=== PATIENT | male | born 1950 | race Caucasian/White ===

== ENCOUNTER 2021-10-02 15:14 | Emergency (ER) | payer MEDICARE ==
[~2021-10-02] VITALS: Ht 180.3 cm; Wt 96.6 kg
[2021-10-02 16:05] LABS: BASOPHILS % (AUTO) 0.5 % (0.0-5.0); EOSINOPHILS % (AUTO) 1.2 % (0.0-8.0); HEMATOCRIT 28.6 % (42-54); LYMPHOCYTES % (AUTO) 9.1 % (21.0-51.0); MEAN CORPUSCULAR HEMOGLOBIN 21.4 pg (27.0-33.0); MEAN CORPUSCULAR HGB CONC 29.7 g/dL (32.0-36.0); MEAN CORPUSCULAR VOLUME 71.9 fL (79-99); MONOCYTES % (AUTO) 8.6 % (3.0-13.0); PLATELET COUNT (AUTO) 580 K/uL (130-400); RED BLOOD CELL COUNT(AUTO) 3.98 MIL/uL (4.50-6.20); RED CELL DISTRIBUTION WIDTH 16.2 % (11.0-15.5)
[2021-10-02 16:17] LABS: INR 0.94 (0.85-1.15); PROTHROMBIN TIME 10.3 SEC (9.6-11.6)
[2021-10-02 16:18] LABS: PARTIAL THROMBOPLASTIN TIME 24.8 SEC (26.3-35.5)
[2021-10-02 16:23] LABS: CREATININE 1.6 mg/dL (0.5-1.5); POTASSIUM 4.5 mmol/L (3.5-5.1)
[2021-10-02 16:28] LABS: ALBUMIN 3.6 g/dL (3.5-5.0); BILIRUBIN,TOTAL 0.2 mg/dL (0.2-1.0); TOTAL PROTEIN, SERUM 6.7 g/dL (6.0-8.3)
[2021-10-02 16:29] LABS: B-TYPE NATRIURETIC PEPTIDE 11 pg/mL (0-100)
[2021-10-02] MEDS ORDERED: ZOSYN 3.375GM +NS 50ML IV SCH (16:30)
[2021-10-02] MEDS ORDERED: 0.9% NACL 500ML IV.SOLN 500 ML IV ONE (17:00)
[2021-10-02] MEDS ORDERED: IOHEXOL-350 75 ML VIAL IV ONE (17:07)
[2021-10-02] MEDS ORDERED: SOLU-MEDROL 125MG VIAL IVP ONE (18:30)
[2021-10-02] MEDS ORDERED: IPRATROPIUM/ALBUTEROL SULFATE 3 ML SOLUTION IH ONE (18:30)
[2021-10-02] MEDS: BUDESONIDE 0.5 MG/2 ML INH IH SCH ×2 (18:59→19:21)
[2021-10-02] MEDS ORDERED: BUDESONIDE 0.5 MG/2 ML INH IH ONE (19:09)
[2021-10-02] MEDS ORDERED: PRED20TA3 PO (23:19)
[2021-10-02] MEDS ORDERED: AMOX-426 PO (23:19)
[2021-10-02 23:32] VITALS: BP 133/64
== END 2021-10-02 23:58 | disposition home or self-care (01) ==
LOC: EDH 15:14
DX: J44.1 Chronic obstructive pulmonary disease with (acute) exacerbation (principal); Z20.822 Contact with and (suspected) exposure to COVID-19
CPT/HCPCS: 36415; 71045; 71270; 80053; 82550; 83605 ×3; 83880; 84145; 84484; 85025; 85378; 85610; 85730; 87040 ×2; 87635; 87804 ×2; 93005; 94640 ×2; 96365; 96375; 99285; C9803; J2543; J2930; Q9967

== ENCOUNTER 2024-05-14 16:09 | Emergency (ER) | payer MEDICARE, OTHER ==
[~2024-05-14] VITALS: Ht 180.3 cm; Wt 93.0 kg
[~2024-05-14 16:09] MED LIST: AMOX-426 PO; PRED20TA3 PO
--- NOTE | 2024-05-14 16:20 | ERN ---
General Chief Complaint: Flu Symptoms Stated Complaint: FLU LIKE SYMPTOMS Time Seen by MD: 16:10 Source: patient History of Present Illness Initial Comments Patient is a 73-year-old male coming in to be evaluated for shortness of breath. Patient also states he has been having body aches and chills. He also states that while laying down he feels more short of breath. Allergies: Coded Allergies: morphine (Unverified Allergy, Mild, 10/02/21) Home Meds Active Scripts Prednisone (Prednisone) 20 Mg Tablet, 3 TAB PO DAILY for 5 Days, #15 TAB 0 Refills TAKE 1 TAB BY MOUTH THREE TIMES PER DAY X3 DAYS, THEN TAKE 1 TAB BY MOUTH TWICE A DAY X2 DAYS, THEN TAKE 1 TAB BY MOUTH ONCE A DAY X1 DAY. Prov:JASMIN GRAYSON MD 10/02/21 Amoxicillin/Potassium Clav (Augmentin 500-125 Tablet) 1 Each Tablet, 1 EACH PO TID for 10 Days, #30 TAB Prov:JASMIN GRAYSON MD 10/02/21 Past Medical History Past Medical History: COPD, High Cholesterol, Hypertension Past Surgical History: Other Surgical History Other: BACK, HERNIA, Social History Social History: Smokers, Lives with family ROS Dictation CONSTITUTIONAL: No chills, no fever, no weakness, no diaphoresis, no malaise. HEAD/FACE: No signs of trauma. EENT: No eye pain, no blurred vision, no tearing, no double vision, no ear pain, no ear discharge, no nose pain, no nasal congestion, no throat pain, no throat swelling, no mouth pain. RESPIRATORY: No cough, orthopnea, SOB, no stridor, no wheezing. CARDIOVASCULAR: No chest pain, no edema, no palpitations, no syncope. GASTROINTESTINAL/ABDOMINAL: No abdominal pain, no constipation, no diarrhea, no nausea, no vomiting. GENITOURINARY: No abnormal discharge, no dysuria, no frequent urination, no hematuria. No complaints of pain in the genitals. MUSCULOSKELETAL: No back pain, no gout, no joint pain, no joint swelling, no muscle pain, no muscle stiffness, no neck pain. INTEGUMENTARY: No change in color, no change in hair/nails, no dryness, no lesion, no lumps, no rash. NEUROLOGICAL/PSYCH: No anxiety, not depressed, no emotional problem, no headache, no numbness, no pre-existing deficit, no history of seizures, no tremors, no weakness. HEMATOLOGIC/LYMPHATIC: Not anemic, no history of blood clots, no apparent bleeding, no bruising, glands not swollen. All Systems Negative, Except as Noted. Physical Exam Physical Exam Dictation VITAL SIGNS: Reviewed. GENERAL APPEARANCE: Alert, oriented x3, no acute distress, obese. HEAD AND FACE: Non-traumatic. EYES: PERRL, pink conjunctivas, eyelid no trauma, anterior chamber clear. EARS: Pinnas intact and no signs of trauma or erythema. Ear canals clear and no discharge. TMs no erythema. NOSE: No discharge, no bleeding. OROPHARYNX: Mouth normal, teeth no caries, tongue pink. Pharynx clear, no erythema. Tonsils no exudates, no abscesses noted. Mucous membrane moist. NECK: Supple, non-tender, no thyromegaly, no masses, no JVD, no bruits. BREAST: Deferred. CHEST: No tenderness, no crepitus, no paradoxical movement, no retractions. LUNGS: Clear, well-ventilated, symmetric, no rales, no wheezing, no rhonchi, no stridor, good breath sounds bilaterally. HEART: Regular rate, regular rhythm, no murmur, no gallops. VASCULAR: No peripheral edema. ABDOMEN: Soft, positive bowel sounds, nondistended, no guarding, nontender, no rebound, no masses no hepatomegaly, no splenomegaly, no Granados's sign, no hernias. RECTAL: Deferred. GENITAL: Deferred. NEUROLOGICAL: Normal speech, gross motor function intact, gross sensory function intact. MUSCULOSKELETAL: Neck nontender, full range of motion, back nontender, full range of motion. EXTREMITIES: Nontender, full range of motion. SKIN: Color pink, dry, no turgor, no rash, no lacerations, no abrasions, no contusions. LYMPHATICS: Deferred. Results Laboratory and Microbiology Lab and Micro Result Laboratory Tests Test 05/14/24 16:20 05/14/24 16:38 Influenza Type A Antigen Negative For Type A Influenza Type B Antigen Negative For Type B SARS-CoV-2, RNA, NAAT NEGATIVE SARS CoV-2 Group A Streptococcus Rapid negative (NEGATIVE) White Blood Count 14.5 K/uL (4.8-10.8) H Red Blood Count 3.97 MIL/uL (4.50-6.20) L Hemoglobin 9.4 g/dL (14.0-18.0) L Hematocrit 30.8 % (42-54) L Mean Corpuscular Volume 77.6 fL (79-99) L Mean Corpuscular Hemoglobin 23.7 pg (27.0-33.0) L Mean Corpuscular Hemoglobin Concent 30.5 g/dL (32.0-36.0) L Red Cell Distribution Width 14.8 % (11.0-15.5) Platelet Count 556 K/uL (130-400) H Mean Platelet Volume 9.4 fL (7.5-10.5) Immature Granulocyte % (Auto) 0.8 % (0-1) Neutrophils (%) (Auto) 80.6 % (40.0-77.0) H Lymphocytes (%) (Auto) 6.9 % (21.0-51.0) L Monocytes (%) (Auto) 8.6 % (3.0-13.0) Eosinophils (%) (Auto) 2.7 % (0.0-8.0) Basophils (%) (Auto) 0.4 % (0.0-5.0) Neutrophils # (Auto) 11.7 K/uL (1.8-7.7) H Lymphocytes # (Auto) 1.0 K/uL (1.0-4.8) Monocytes # (Auto) 1.3 K/uL (0.1-1.0) H Eosinophils # (Auto) 0.39 K/uL (0.00-0.70) Basophils # (Auto) 0.06 K/uL (0.00-0.20) Absolute Immature Granulocyte (auto 0.11 K/uL (0-1) Nucleated Red Blood Cells 0.0 % (0.0-0.19) White Cell Morphology Comment See comments Red Blood Cell Morphology See comments Prothrombin Time 11.0 SEC (9.6-11.6) Prothromb Time International Ratio 0.98 (0.85-1.15) Sodium Level 141 mmol/L (136-145) Potassium Level 3.9 mmol/L (3.5-5.1) Chloride Level 100 mmol/L (101-111) L Carbon Dioxide Level 28 mmol/L (21-32) Blood Urea Nitrogen 21 mg/dL (7-18) H Creatinine 1.2 mg/dL (0.5-1.3) Glomerular Filtration Rate Calc 63 mL/min (>90) Random Glucose 118 mg/dL (70-105) H Total Calcium 9.9 mg/dL (8.5-10.1) Magnesium Level 1.70 mg/dL (1.80-2.40) L Total Creatine Kinase 55 U/L (21-232) # Troponin I High Sensitivity 10 ng/L (4-75) B-Type Natriuretic Peptide 41 pg/mL (0-100) Labs Reviewed?: Yes EKG/XRAY/US/CT/MRI EKG Comment 05/14/2024 time 4:30 p.m. Ventricular rate 101 Sinus tachycardia DC [address] wave elevation or depression X-RAY Comment Chest x-ray-[facility] MDM: Differential diagnosis: Flu, COVID, sinusitis, URI Patient is a 73-year-old male coming in to be evaluated for uri symptoms, lab oratory workup negative for acute findings. Chest x-ray NAD. Patient will be discharged with breathing treatments and antibiotics. ED Course Orders Procedure Category Date Status Time Cbc With Differential LAB 05/14/24 Complete 16:17 Prothrombin Time With LAB 05/14/24 Complete INR 16:17 B-Type Natriuretic LAB 05/14/24 Complete Peptide 16:17 Chest 1vw RAD 05/14/24 Taken 16:17 12 Lead Ekg Tracing- EKG 05/14/24 Complete Technical 16:17 Magnesium LAB 05/14/24 Complete 16:17 Creatine Kinase, Total LAB 05/14/24 Complete 16:17 Troponin I High LAB 05/14/24 Complete Sensitivity 16:17 Basic Metabolic Panel LAB 05/14/24 Complete 16:17 Covid Rna Naat LAB 05/14/24 Complete 16:17 Influenza Type A & B, LAB 05/14/24 Complete Rapid 16:17 Rapid (Group A Strep) LAB 05/14/24 Complete 16:17 Vital Signs Date Time Temp Pulse Resp B/P (MAP) Pulse Ox O2 Delivery O2 Flow Rate FiO2 05/14/24 16:12 98.4 103 18 115/57 98 DX & DISP Disposition: Discharge Departure Impression: Primary Impression: URI (upper respiratory infection) Condition: Stable Scripts Methylprednisolone (Medrol) 8 Mg Tablet 1 TAB PO BID for 5 Days, #10 TAB 0 Refills Prov: JEFRY MARRERO MD 05/14/24 Azithromycin (Azithromycin) 500 Mg Tablet 1 TAB PO DAILY for 5 Days, #5 TAB 0 Refills Prov: JEFRY MARRERO MD 05/14/24 Additional Instructions: FOLLOW-UP WITH PRIMARY CARE PROVIDER IN 1 TO 2 DAYS. TAKE MEDICATIONS DIRECTED HERE IN THE EMERGENCY ROOM. OKAY TO CONTINUE HOME MEDICATIONS UNLESS OTHERWISE DISCUSSED DURING YOUR VISIT IN THE EMERGENCY ROOM TODAY. RETURN TO YOUR NEAREST EMERGENCY ROOM IF SYMPTOMS WORSEN OR IF THERE IS NO IMPROVEMENT. CALL 911 IF YOU NEED IMMEDIATE ASSISTANCE. TAKE TYLENOL [id number] NEEDED AND IF NO CONTRAINDICATIONS ARE PRESENT. INCREASE ORAL HYDRATION. A WOUND CULTURE OR URINE CULTURE WAS ORDERED HERE IN THE EMERGENCY ROOM DEPARTMENT PLEASE FOLLOW-UP WITH PRIMARY CARE PROVIDER AND ADVISE THEM TO GET REPEAT PORTS FROM OUR FACILITY. IF YOU HAD ANY ZAYNAB WRAP/SPLINTS THAT WERE APPLIED HERE, PLEASE DO NOT REMOVE THEM UNTIL YOU SEE YOUR PRIMARY CARE OR SPECIALTY. Referrals: Referrals: NONE (PCP) FRANCESCA MUHAMMAD MD Time of Disposition: 17:32 JEFRY MARRERO MD May 14, 2024 16:20
--- NOTE | 2024-05-14 16:33 | EKG ---
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
[2024-05-14 16:41] LABS: SARS-CoV-2, RNA, NAAT NEGATIVE SARS CoV-2 (NEGATIVE)
[2024-05-14 16:42] LABS: RAPID GROUP A STREP negative (NEGATIVE)
[2024-05-14 16:45] LABS: BASOPHILS # (AUTO) 0.06 K/uL (0.00-0.20); BASOPHILS % (AUTO) 0.4 % (0.0-5.0); EOSINOPHILS # (AUTO) 0.39 K/uL (0.00-0.70); EOSINOPHILS % (AUTO) 2.7 % (0.0-8.0); HEMATOCRIT 30.8 % (42-54); IMMATURE GRANULOCYTE ABSOLUTE 0.11 K/uL (0-1); LYMPHOCYTES % (AUTO) 6.9 % (21.0-51.0); MEAN CORPUSCULAR HEMOGLOBIN 23.7 pg (27.0-33.0); MEAN CORPUSCULAR HGB CONC 30.5 g/dL (32.0-36.0); MEAN CORPUSCULAR VOLUME 77.6 fL (79-99); MONOCYTES # (AUTO) 1.3 K/uL (0.1-1.0); MONOCYTES % (AUTO) 8.6 % (3.0-13.0); NEUTROPHILS # (AUTO) 11.7 K/uL (1.8-7.7); NEUTROPHILS % (AUTO) 80.6 % (40.0-77.0); PLATELET COUNT (AUTO) 556 K/uL (130-400); RED BLOOD CELL COUNT(AUTO) 3.97 MIL/uL (4.50-6.20); RED CELL DISTRIBUTION WIDTH 14.8 % (11.0-15.5); WHITE BLOOD COUNT (AUTO) 14.5 K/uL (4.8-10.8)
[2024-05-14 16:51] LABS: INFLUENZA TYPE A Negative For Type A (NEGATIVE); INFLUENZA TYPE B Negative For Type B (NEGATIVE)
[2024-05-14 16:54] LABS: CREATININE 1.2 mg/dL (0.5-1.3); POTASSIUM 3.9 mmol/L (3.5-5.1)
[2024-05-14 16:55] LABS: INR 0.98 (0.85-1.15)
[2024-05-14 16:59] LABS: MAGNESIUM 1.7 mg/dL (1.80-2.40)
[2024-05-14 17:18] LABS: B-TYPE NATRIURETIC PEPTIDE 41 pg/mL (0-100)
[2024-05-14] MEDS ORDERED: AZIT500T4 PO (17:35)
[2024-05-14] MEDS ORDERED: METH8TAB PO (17:35)
--- NOTE | 2024-05-14 17:39 | HMCIMG ---
INDICATION: sob TECHNIQUE: CHEST 1VW COMPARISON: 10/02/2021 FINDINGS/IMPRESSION: Prominent bilateral interstitial markings which may represent bronchitis or vascular congestion in the proper clinical setting. Cardiac silhouette is within normal limits. Mild degenerative changes of the spine. The visualized upper abdomen appears unremarkable.
[2024-05-14 17:52] VITALS: BP 127/68; PULSE 85; RESP 18; TEMP 98.7; O2SAT 97
[2024-05-14] MEDS ORDERED: IpraTROPium/alBUTERol SULFATE 3 ML SOLUTION IH ONE (18:00)
== END 2024-05-14 18:13 | disposition home or self-care (01) ==
LOC: EDH 16:09
DX: J06.9 Acute upper respiratory infection, unspecified (principal); E78.00 Pure hypercholesterolemia, unspecified; F17.200 Nicotine dependence, unspecified, uncomplicated; I10 Essential (primary) hypertension; J44.9 Chronic obstructive pulmonary disease, unspecified; Z20.822 Contact with and (suspected) exposure to COVID-19; Z79.52 Long term (current) use of systemic steroids; Z88.5 Allergy status to narcotic agent
CPT/HCPCS: 36415; 71045; 80048; 82550; 83735; 83880; 84484; 85025; 85610; 87635; 87804; 87880; 93005; 99285

== ENCOUNTER 2024-06-07 12:08 | Inpatient (IN) | payer OTHER ==
[~2024-06-07] VITALS: Ht 180.3 cm; Wt 99.3 kg
[~2024-06-07 12:08] MED LIST changes: +AZIT500T4 PO; +METH8TAB PO
--- NOTE | 2024-06-07 12:23 | ERN ---
ED Note History of Present Illness Stated Complaint: INFLAMMATION/ RT SHOULDER & GROIN, HEART RATE ELVT Chief Complaint: Dizzy/Light Headed Time Seen by MD: 12:08 Dictation: PATIENT IS A 73-YEAR-OLD MALE COMING IN TODAY WITH COMPLAINTS OF LIGHTHEADEDNESS AND DIZZINESS WORSE FOR THE LAST SEVERAL DAYS. NO HEADACHE NO CHEST PAIN NO BACK PAIN. STATES HIS HEART RATE HAS BEEN RACING TWO. DENIES FEVER CHILLS NAUSEA VOMITING. HAS NOT BEEN TO SEE HIS PRIMARY CARE DOCTOR HAS A HISTORY OF COPD Allergies: Coded Allergies: morphine (Unverified Allergy, Mild, 10/02/21) meperidine (Unverified Allergy, Unknown, 06/07/24) Home Meds Active Scripts Methylprednisolone (Medrol) 8 Mg Tablet, 1 TAB PO BID for 5 Days, #10 TAB 0 Refills Prov:JEFRY MARRERO MD 05/14/24 Azithromycin (Azithromycin) 500 Mg Tablet, 1 TAB PO DAILY for 5 Days, #5 TAB 0 Refills Prov:JEFRY MARRERO MD 05/14/24 Prednisone (Prednisone) 20 Mg Tablet, 3 TAB PO DAILY for 5 Days, #15 TAB 0 Refills TAKE 1 TAB BY MOUTH THREE TIMES PER DAY X3 DAYS, THEN TAKE 1 TAB BY MOUTH TWICE A DAY X2 DAYS, THEN TAKE 1 TAB BY MOUTH ONCE A DAY X1 DAY. Prov:JASMIN GRAYSON MD 10/02/21 Amoxicillin/Potassium Clav (Augmentin 500-125 Tablet) 1 Each Tablet, 1 EACH PO TID for 10 Days, #30 TAB Prov:JASMIN GRAYSON MD 10/02/21 Past Medical History Past Medical History: COPD, High Cholesterol, Hypertension Surgical History: Other Surgical History Other: BACK, HERNIA, Social History: Smokers, Lives with family RN Note Reviewed/Agreed w/PFSH: Yes Review of System Dictation CONSTITUTIONAL: Negative except for HPI HEAD/FACE: Negative except for HPI EENT: Negative except for HPI RESPIRATORY: Negative except for HPI GASTROINTESTINAL/ABDOMINAL: Negative except for HPI melena stools GENITOURINARY: Negative except for HPI MUSCULOSKELETAL: Negative except for HPI INTEGUMENTARY: Negative except for HPI NEUROLOGICAL/PSYCH: Negative except for HPI lightheaded/dizzy HEMATOLOGIC/LYMPHATIC: Negative except for HPI All Systems Negative, Except as noted above. 13 point review of systems assessed and all negative except for above. Initial Vital Sign VS Vital Signs Date Time Temp Pulse Resp B/P (MAP) Pulse Ox O2 Delivery O2 Flow Rate FiO2 06/07/24 12:14 97.9 94 18 148/69 99 Room Air 0 06/07/24 13:52 21 Physical Exam Dictation Vital Signs reviewed Marion RODRIGUEZ in room General Appearance: Alert, oriented x 3, no acute distress, well developed, nourished. Head and Face: non-traumatic. Eyes: PERRL, pink conjunctivas, eyelid no trauma, anterior chamber with arcus senilis. Ears: Pinnas intact and no signs of trauma or erythema ear canals clear and no discharge TM no erythema Nose: No discharge, no bleeding. Oropharynx: Mouth normal, tongue pink, pharynx clear,no erythema, tonsils no exudates, no abscesses noted, mucous membrane moist Neck: Supple, non-tender, no thyromegaly, no masses, no JVD, no bruits Breast:Deferred Chest:No tenderness, no crepitus, no paradoxical movement, no retractions Lungs:Clear, well-ventilated, symmetric, no rales, no wheezing, no rhonchi, no stridor, good breath sounds bilaterally Heart: Regular rate, regular rhythm, no murmur, no gallops Vascular: no peripheral edema, Abdomen: Soft, positive bowel sounds, nondistended, no guarding, nontender, no rebound, no masses no hepatomegaly, no splenomegaly, no Granados's sign, no hernias. Rectal: No external or internal hemorrhoids, tone is normal, stool collected for occult blood. Patient tolerated well Genital: Deferred Neurological: Normal speech, motor function intact, sensory function intact Musculoskeletal: Neck nontender, full range of motion, back nontender, full range of motion, Extremities: nontender, full range of motion Skin: Color pink, dry, no turgor, no rash, no lacerations, no abrasions, no contusions. Lymphatic: Deferred Results (Laboratory/Radiology) Laboratory/Radiology Laboratory Tests Test 06/07/24 12:38 06/07/24 13:46 White Blood Count 9.9 K/uL (4.8-10.8) Red Blood Count 3.09 MIL/uL (4.50-6.20) L Hemoglobin 6.8 g/dL (14.0-18.0) *L Hematocrit 23.3 % (42-54) L Mean Corpuscular Volume 75.4 fL (79-99) L Mean Corpuscular Hemoglobin 22.0 pg (27.0-33.0) L Mean Corpuscular Hemoglobin Concent 29.2 g/dL (32.0-36.0) L Red Cell Distribution Width 15.5 % (11.0-15.5) Platelet Count 419 K/uL (130-400) H Mean Platelet Volume 10.1 fL (7.5-10.5) Immature Granulocyte % (Auto) 1.1 % (0-1) H Neutrophils (%) (Auto) 83.7 % (40.0-77.0) H Lymphocytes (%) (Auto) 5.4 % (21.0-51.0) L Monocytes (%) (Auto) 6.2 % (3.0-13.0) Eosinophils (%) (Auto) 3.1 % (0.0-8.0) Basophils (%) (Auto) 0.5 % (0.0-5.0) Neutrophils # (Auto) 8.2 K/uL (1.8-7.7) H Lymphocytes # (Auto) 0.5 K/uL (1.0-4.8) L Monocytes # (Auto) 0.6 K/uL (0.1-1.0) Eosinophils # (Auto) 0.31 K/uL (0.00-0.70) Basophils # (Auto) 0.05 K/uL (0.00-0.20) Absolute Immature Granulocyte (auto 0.11 K/uL (0-1) Nucleated Red Blood Cells 0.2 % (0.0-0.19) H White Cell Morphology Comment See comments Red Blood Cell Morphology See comments Sodium Level 138 mmol/L (136-145) Potassium Level 4.2 mmol/L (3.5-5.1) Chloride Level 100 mmol/L (101-111) L Carbon Dioxide Level 28 mmol/L (21-32) Blood Urea Nitrogen 23 mg/dL (7-18) H Creatinine 1.2 mg/dL (0.5-1.3) Glomerular Filtration Rate Calc 63 mL/min (>90) Random Glucose 135 mg/dL (70-105) H Total Calcium 10.1 mg/dL (8.5-10.1) Magnesium Level 1.80 mg/dL (1.80-2.40) Troponin I High Sensitivity 532 ng/L (4-75) *H B-Type Natriuretic Peptide 74 pg/mL (0-100) SARS-CoV-2 Antigen (Rapid) PRESUMPTIVE NEGATIVE Labs Reviewed?: Yes EKG Comment: EKG SINUS RHYTHM/HEART RATE 91/AXIS NORMAL/RIGHT BUNDLE BRANCH BLOCK No change from EKG on 05/14/2024 ED Course ED Course Orders Procedure Category Date Status Time Covid19 (Sars Antigen LAB 06/07/24 Complete Rapid) 12:17 Cbc With Differential LAB 06/07/24 Complete 12:17 B-Type Natriuretic LAB 06/07/24 Complete Peptide 12:17 Chest 1vw RAD 06/07/24 Resulted 12:17 12 Lead Ekg Tracing- EKG 06/07/24 Complete Technical 12:17 Magnesium LAB 06/07/24 Complete 12:17 Troponin I High LAB 06/07/24 Complete Sensitivity 12:17 Basic Metabolic Panel LAB 06/07/24 Complete 12:17 Heparin 25,000 PHA 06/07/24 Complete Units/250ml D5w 14:00 Aspirin 325mg Tab PHA 06/07/24 Complete (Aspirin 325mg Tab) 14:00 Pantoprazole 40mg Inj PHA 06/07/24 In Process (Protonix 40mg Inj 14:00 Pantoprazole 40mg Inj PHA 06/07/24 Complete (Protonix 40mg Inj 14:00 Occult Blood Stool LAB 06/07/24 In Process Single Only 13:49 Type And Screen BBK 06/07/24 In Process 13:49 Rbc-Active Bleeding BBK 06/07/24 In Process 13:49 *Nursing CPOE 06/07/24 Transmitted Communication: 13:49 Compound Iv PHA 06/07/24 In Process Refrigerated 14:00 Current Medications Medications (Trade) Dose Ordered Sig/Kenneth Route PRN Reason Start Time Stop Time Status Last Admin Dose Admin Aspirin (Aspirin 325mg Tab) 325 mg ONCE ONCE PO 06/07/24 14:00 06/07/24 14:01 DC 06/07/24 13:49 Heparin Sodium/ Dextrose 250 ml @ 0 mls/hr PROTOCOL IV 06/07/24 14:00 06/07/24 13:52 DC Pantoprazole Sodium (PROTonix 40MG INJ) 40 mg ONCE ONCE IVP 06/07/24 14:00 06/07/24 14:01 DC 06/07/24 14:18 Pantoprazole Sodium 80 mg/ Sodium Chloride 100 ml @ 10 mls/hr Q10H IVP 06/07/24 14:00 07/07/24 13:59 06/07/24 14:17 Vital Signs Date Time Temp Pulse Resp B/P (MAP) Pulse Ox O2 Delivery O2 Flow Rate FiO2 06/07/24 13:52 78 18 152/78 98 Room Air* 0 21 06/07/24 12:14 97.9 94 18 148/69 99 Room Air 0 1455, patient has abnormal EKG with troponin 532. Additionally he has a hemogl obin of 6.8 I discussed the case with ER MD, we will give2 units of packed cells, we will collect stool for occult blood, we will give Protonix and start Protonix drip. 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 He also states I have been having black stools for several days. 428 patient will be admitted to the hospitalp 1430/spoke with . Reviewed EKG labs and he is aware of drop in hemoglobin from his last admission here on 05/14. HEART Score Response (Comments) Value History: Moderate suspicion (+1) 1 Age: > 65yrs (+2) 2 Risk Factors: 3+ risk factors (+2) 2 Initial Troponin: >3x Normal Limit (+2) 2 Total 7 Medical Decision Making MDM MDM: Differential diagnosis: ACS/AMI/GI bleed/anemia/symptomatic anemia/electrolyte imbalance/dehydration/pneumonia/bronchitis Rationale: Tests considered and ordered secondary to shared decision making include: labs, ECG and radiology Previous outside records reviewed: Old ER visits. Risk of complication and/or morbidity or mortality of patient management: [id number] Medications-Per medication reconciliation Need for hospitalization: Patient does meet criteria for hospitalization. Patient will need to be seen by GI for melena stools and cardiac workup for elevated troponin with no changes on EKG Need for emergency major/minor surgery: No There are no social concerns with this patient. Prescription drug management Prescriptions will include symptomatic care Patient's prior external medical records from other ER visits were reviewed by me as indicated. Prior testing and results from previous visits were reviewed. Prior tests were taken into account with medical decision making and resource utilization, independent historian/historians were used to obtain complete medical history. I independently interpreted the test that were performed, results were reviewed by me and considered findings on radiology if ordered. Medical management and examination interpretation discussions were had by me with other qualified healthcare professionals as indicated for the patient's care. DX & DISP Disposition: Inpatient Decision to Admit Time: 14:30 Departure Impression: Primary Impression: Symptomatic anemia Additional Impressions: Hypochloremia, Uncontrolled diabetes mellitus, Elevated troponin level not due to acute coronary syndrome Condition: Stable Referrals: SELF,REFERRAL (PCP) Time of Disposition: 14:30 I have reviewed the case, and I agree with, Diagnosis and Plan DAVE CARPENTER NP Jun 07, 2024 12:23
[2024-06-07 13:13] LABS: CREATININE 1.2 mg/dL (0.5-1.3); MAGNESIUM 1.8 mg/dL (1.80-2.40); POTASSIUM 4.2 mmol/L (3.5-5.1)
--- NOTE | 2024-06-07 13:30 | EKG ---
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
[2024-06-07 13:33] LABS: BASOPHILS # (AUTO) 0.05 K/uL (0.00-0.20); BASOPHILS % (AUTO) 0.5 % (0.0-5.0); EOSINOPHILS # (AUTO) 0.31 K/uL (0.00-0.70); EOSINOPHILS % (AUTO) 3.1 % (0.0-8.0); HEMATOCRIT 23.3 % (42-54); IMMATURE GRANULOCYTE ABSOLUTE 0.11 K/uL (0-1); LYMPHOCYTES # (AUTO) 0.5 K/uL (1.0-4.8); LYMPHOCYTES % (AUTO) 5.4 % (21.0-51.0); MEAN CORPUSCULAR HGB CONC 29.2 g/dL (32.0-36.0); MEAN CORPUSCULAR VOLUME 75.4 fL (79-99); MONOCYTES # (AUTO) 0.6 K/uL (0.1-1.0); MONOCYTES % (AUTO) 6.2 % (3.0-13.0); NEUTROPHILS # (AUTO) 8.2 K/uL (1.8-7.7); NEUTROPHILS % (AUTO) 83.7 % (40.0-77.0); NUCLEATED RED BLOOD CELLS 0.2 % (0.0-0.19); PLATELET COUNT (AUTO) 419 K/uL (130-400); RED BLOOD CELL COUNT(AUTO) 3.09 MIL/uL (4.50-6.20); RED CELL DISTRIBUTION WIDTH 15.5 % (11.0-15.5); WHITE BLOOD COUNT (AUTO) 9.9 K/uL (4.8-10.8)
--- NOTE | 2024-06-07 13:35 | NUR ---
CRITICAL RESULT TROP 532, DAVE EXECUTIVE ADMINISTRATIVE ASST MADE AWARE, CHARGE NURSE MADE AWARE
[2024-06-07] MEDS: ASPIRIN 325MG TAB PO ONE (13:49)
[2024-06-07 13:55] LABS: B-TYPE NATRIURETIC PEPTIDE 74 pg/mL (0-100)
--- NOTE | 2024-06-07 13:58 | HMCIMG ---
Exam Type: CHEST 1VW Clinical Information: CHEST PAIN SOB Comparison: None Findings: The lungs are clear of infiltrates. The heart is normal in size. The bony and soft tissue structures of the chest are unremarkable. Impression: Clear lungs.
[2024-06-07] MEDS ORDERED: COMPOUND IV REFRIGERATED 1 EACH IVSOLN MISC PRN (14:00)
[2024-06-07] MEDS ORDERED: HEParin 25,000 UNITS/250ML D5W 250 ML IV SCH (14:00)
[2024-06-07] MEDS: PANTOPrazole 40MG INJ 80 MG in 0.9%NACL 100ML 100 ML IVP SCH (14:17)
[2024-06-07] MEDS: PANTOPrazole 40 MG/VIAL IVP ONE (14:18)
[2024-06-07] MEDS ORDERED: ALBU2.5V2 NEB (14:51)
[2024-06-07] MEDS ORDERED: ATOR40TA69 PO (14:51)
[2024-06-07] MEDS ORDERED: LISI1TAB51 PO (14:51)
[2024-06-07] MEDS ORDERED: SENN-31 PO (14:51)
[2024-06-07] MEDS ORDERED: POTA99CA PO (14:51)
[2024-06-07] MEDS ORDERED: BUDE0.5A3 NEB (14:51)
[2024-06-07] MEDS ORDERED: PoTASSium chloRIDE 20MEQ/100ML 100 ML IV PRN (15:30)
[2024-06-07] MEDS: 0.9%NACL 1000ML 1,000 ML IV SCH (15:45)
--- NOTE | 2024-06-07 15:45 | HP ---
[facility]ISTORY [facility] PHYSICAL Date of Service: Jun 07, 2024 Time of Service: 15:41 HISTORY OF PRESENT ILLNESS: Date of service: 06/07/2024 This is a 73-year-old male with past medical history of hypertension, hyperlipidemia, COPD who presented to the hospital secondary to episodes of bloody stools at home. Patient states for the past several days he has noted black colored stools. He has a history of constipation and has been using stool softeners at home. He noted that his stool was black colored with last bowel movement yesterday. He denies taking any ibuprofen, Advil at home but does state he takes aspirin occasionally. He currently denies any chest pain, shortness of breath, abdominal pain, nausea, vomiting. Denied any dysuria, fever, chills. He has been feeling lightheaded and feels dizzy with ambulation. Takes lisinopril/HCTZ for hypertension but has been holding his medications since he states his blood pressure has been on the lower side. Denied any falls. Denied any headaches, upper or lower extremity weakness, paresthesias. He denied any hematochezia, hematemesis. Secondary to non improving symptoms patient thereafter came to the hospital for further evaluation. Additionally stated that he has had previous endoscopy and colonoscopy very was noted to have ulcer in the past. Labs in the ED were notable for white count of 9.9, hemoglobin was 6.8, MCV was 75.4, platelet count was 419 K, sodium was 138, potassium was 4.2, creatinine was 1.2, troponin was 532 Chest x-ray was noted to be clear REVIEW OF SYSTEMS CONSTITUTIONAL: Denies fevers, chills, or night sweats. No unintentional weight loss reported. Positive for generalized weakness NEUROLOGICAL: Denies headache, amaurosis fugax, motor weakness, sensory deficit, vertigo/spinning sensation, gait abnormalities, or tremors. ENT: No hearing loss, otalgia, otorrhea, rhinitis, rhinorrhea, hoarseness, or sore throat. CARDIOVASCULAR: Denies any exertional angina, dyspnea on exertion, orthopnea, paroxysmal nocturnal dyspnea, palpitations, life-threatening arrhythmias, claudication. PULMONARY: Denies any shortness of breath, cough, phlegm/sputum, hemoptysis, pleuritic chest pain. GASTROINTESTINAL: Positive for melena, constipation. Denied any hematochezia, hematemesis, abdominal pain, nausea, vomiting GENITOURINARY: Denies frequency, urgency, nocturia, hematuria or incontinence (Storage/Irritative symptoms.) Low urinary stream, straining to void, urinary intermittency or hesitancy, splitting of the voiding stream, terminal dribbling. ENDOCRINOLOGIC: Denies polyuria, polydipsia, polyphagia or heat/cold intolerances. HEMATOLOGIC: Denies thrombophilia/previous clots, or coagulopathy/bleeding disorders. ONCOLOGIC: Denies personal history of malignancy. DERMATOLOGIC: Denies rashes or pruritus. PSYCHIATRIC: Denies any suicidal or homicidal ideation. Denies hallucinations. PAST MEDICAL HISTORY: Hypertension, hyperlipidemia, COPD PAST SURGICAL HISTORY: History of multiple back surgeries, history of colonoscopy, endoscopy PAST SOCIAL HISTORY: Former smoker. Quit more than two years. Denied any drug use. Drinks alcohol very occasionally FAMILY HISTORY: Denied any pertinent family history Coded Allergies: morphine (Unverified Allergy, Mild, 10/02/21) meperidine (Unverified Allergy, Unknown, 06/07/24) PHYSICAL EXAM GENERAL APPEARANCE: The patient is awake, alert, and oriented, in no acute cardiopulmonary distress. Patient appears pain NEUROLOGICAL: Cranial nerves II-XII grossly intact. Motor is 5/5 in bilateral upper and lower extremities proximal to distal. No sensory deficits. HEENT: Face is symmetric. Pupils are equal and reactive. Extraocular movements are intact. NECK: Supple. No JVD. No thyromegaly. No submental, submandibular, pre- /postauricular, occipital or supraclavicular lymphadenopathy. CHEST: Normal chest expansion. No Telemetry. LUNGS: Absence of any rales, rhonchi or any wheezing. CARDIOVASCULAR: Regular. S1 and S2 normal. No appreciable rubs, murmurs or gallops. ABDOMEN: Soft, nontender, and nondistended. There is no rebound, voluntary guarding, or rigidity. : Deferred. No Palomares. EXTREMITIES: Non-edematous and not cyanotic. No clubbing. Good capillary refill. SKIN: No skin breakdown. Vital Sign (Last 24 Hours) 06/07/24 06/07/24 12:14 13:52 Temp 97.9 Pulse 78 Resp 18 B/P (MAP) 152/78 Pulse Ox 98 O2 Delivery Room Air* O2 Flow Rate 0 FiO2 21 LABS: Laboratory: Test 06/07/24 13:58 06/07/24 13:46 06/07/24 12:38 Range/Units Stool Occult Blood POSITIVE H NEGATIVE SARS-CoV-2 Antigen (Rapid) PRESUMPTIVE NEGATIVE NEGATIVE White Blood Count 9.9 4.8-10.8 K/uL Red Blood Count 3.09 L 4.50-6.20 MIL/uL Hemoglobin 6.8 *L 14.0-18.0 g/dL Hematocrit 23.3 L 42-54 % Mean Corpuscular Volume 75.4 L 79-99 fL Mean Corpuscular Hemoglobin 22.0 L 27.0-33.0 pg Mean Corpuscular Hemoglobin Concent 29.2 L 32.0-36.0 g/dL Red Cell Distribution Width 15.5 11.0-15.5 % Platelet Count 419 H 130-400 K/uL Mean Platelet Volume 10.1 7.5-10.5 fL Immature Granulocyte % (Auto) 1.1 H 0-1 % Neutrophils (%) (Auto) 83.7 H 40.0-77.0 % Lymphocytes (%) (Auto) 5.4 L 21.0-51.0 % Monocytes (%) (Auto) 6.2 3.0-13.0 % Eosinophils (%) (Auto) 3.1 0.0-8.0 % Basophils (%) (Auto) 0.5 0.0-5.0 % Neutrophils # (Auto) 8.2 H 1.8-7.7 K/uL Lymphocytes # (Auto) 0.5 L 1.0-4.8 K/uL Monocytes # (Auto) 0.6 0.1-1.0 K/uL Eosinophils # (Auto) 0.31 0.00-0.70 K/uL Basophils # (Auto) 0.05 0.00-0.20 K/uL Absolute Immature Granulocyte (auto 0.11 0-1 K/uL Nucleated Red Blood Cells 0.2 H 0.0-0.19 % White Cell Morphology Comment See comments Red Blood Cell Morphology See comments Sodium Level 138 136-145 mmol/L Potassium Level 4.2 3.5-5.1 mmol/L Chloride Level 100 L 101-111 mmol/L Carbon Dioxide Level 28 21-32 mmol/L Blood Urea Nitrogen 23 H 7-18 mg/dL Creatinine 1.2 0.5-1.3 mg/dL Glomerular Filtration Rate Calc 63 >90 mL/min Random Glucose 135 H 70-105 mg/dL Total Calcium 10.1 8.5-10.1 mg/dL Magnesium Level 1.80 1.80-2.40 mg/dL Troponin I High Sensitivity 532 *H 4-75 ng/L B-Type Natriuretic Peptide 74 0-100 pg/mL Current Medications Medications (Trade) Dose Ordered Sig/Kenneth Route PRN Reason Start Time Stop Time Status Last Admin Dose Admin Heparin Sodium/ Dextrose 250 ml @ 0 mls/hr PROTOCOL IV 06/07/24 14:00 06/07/24 13:52 DC Magnesium Sulfate 50 ml @ 0 mls/hr PROTOCOL PRN IV HYPOMAGNESEMIA 06/07/24 15:30 07/07/24 15:29 Pantoprazole Sodium 80 mg/ Sodium Chloride 100 ml @ 10 mls/hr Q10H IVP 06/07/24 14:00 07/07/24 13:59 06/07/24 14:17 10 MLS/HR Potassium Chloride 100 ml @ 50 mls/hr AD PRN IV POTASSIUM PROTOCOL 06/07/24 15:30 07/07/24 15:29 Sodium Chloride 1,000 ml @ 100 mls/hr Q10H IV 06/07/24 15:30 07/07/24 15:29 DIAGNOSTICS / RADIOLOGY: [ ] ASSESSMENT: Melena with concern for GI bleed POA Acute symptomatic anemia Microcytic anemia Troponin elevation likely in setting of type 2 OK from anemia Hypertension Hyperlipidemia History of COPD History of gastric ulcer History of constipation PLAN: - patient to be admitted to [facility] -in reference to anemia. Patient be given1 unit PRBC transfusion. We will aim for hemoglobin greater than seven. Check H&H q.6 hours. Patient to be started on Protonix drip. We will request GI consultation. obtain CT abdomen pelvis -in reference to troponin elevation. We will check troponins q.6 hours. Patient denies any active chest pain. Obtain an echo. Also request consultation with Cardiology -obtain home medications which will be reconciled once available -we will hold patient's home antihypertensives -further orders per hospitalization course Plan of care was discussed with patient at bedside Marcie Toussaint MD Advanced Care Planning Which of the following were discussed: Hospice care: Yes __ No _X_ Therapeutic options: Yes __ No __ Advance directives: Yes __ No __ Other discussions: Pt is full code Discussed with who?: patient (Patient, family or surrogates) Voluntary nature of this service was explained to the patient? Yes _x_ No __ Amount of time spent: 25 minutes MARCIE Abarca MD, MD Jun 07, 2024 15:45
[2024-06-07] MEDS: ALBUTEROL 0.083% 2.5 MG/3 ML INH IH PRN (16:31)
[2024-06-07 16:32] VITALS: PULSE 87; RESP 18
[2024-06-07 16:33] VITALS: PULSE 87; RESP 18; O2SAT 97
[2024-06-07 16:58] LABS: INR 1.01 (0.85-1.15); PROTHROMBIN TIME 11.3 SEC (9.6-11.6)
[2024-06-07 16:59] LABS: PARTIAL THROMBOPLASTIN TIME 20.3 SEC (26.3-35.5)
--- NOTE | 2024-06-07 17:35 | HMCIMG ---
CT ABDOMEN WITHOUT CONTRAST. CT PELVIS WITHOUT CONTRAST. INDICATION: Anemia and constipation TECHNIQUE: Routine transaxial imaging using 5 mm slice thickness through the abdomen and pelvis without the administration of IV contrast. Thin slice reconstructions are also provided. Coronal and sagittal reformatted images acquired for interpretation. CT was performed with one or more of the following dose reduction techniques: Automated exposure control, adjustment of the mA and/or kV according to patient size, or use of iterative reconstruction technique. COMPARISON: None FINDINGS: ON NONCONTRAST IMAGING: ABDOMEN: Heart size is normal. Mild to moderate centrilobular emphysema. No abnormal renal calcifications, hydronephrosis, perinephric inflammation, or proximal hydroureter detected. Small simple bilateral renal cysts. The liver is normal in size and smooth in contour without biliary duct dilation. Large low attenuating masses within the right and left hepatic lobe and smaller low attenuating lesions scattered throughout the liver, largest mass within the left hepatic lobe measures up to 9 cm. Subcentimeter proteinaceous or hemorrhagic cyst at the midportion of the left kidney. A couple of slightly enlarged esperanza hepatis lymph nodes. The spleen is normal in size and attenuation. The gallbladder appears normal. The pancreas appears normal without pancreatic duct dilation. A couple of low attenuating left adrenal gland nodules, likely tiny adenomas. Right adrenal gland appears normal. No other significant abdominal, retrocrural or retroperitoneal adenopathy noted. No evidence for intra-abdominal free air or organized fluid collection. Mild calcific plaque is noted along the abdominal aortic and iliac vessel roberson without aneurysmal dilation. PELVIS: No abnormal calcifications within the urinary bladder or distal ureters. No evidence for free air or organized pelvic fluid collection. No significant pelvic adenopathy detected. Visualized small and large bowel loops appear unremarkable. Terminal ileum appears unremarkable. The appendix appears normal. Moderate thoracolumbar spondylosis. Mild lumbar dextroscoliosis. IMPRESSION: 1. Metastatic liver disease or primary liver neoplasm with associated metastatic disease. 2. Mild to moderate centrilobular emphysema. 3. Additional minor findings and pertinent negatives as reported.
--- NOTE | 2024-06-07 18:23 | HMCIMG ---
ULTRASOUND ABDOMEN LIMITED INDICATION: Liver mass COMPARISON: To 425 CT abdomen pelvis FINDINGS: The liver is normal in size and echogenicity; hypoechoic/heterogeneous 10.1 cm left hepatic lobe mass and a 0.9 cm and 3.8 cm right hepatic lobe masses. Main portal vein is patent, and normal direction of vascular flow demonstrated. The common bile duct diameter measures 4.0 mm. No evidence for calculi, sludge or pericholecystic fluid. No sonographic Granados's sign elicited by the ultrasound cafe operator. Wall thickness measures 2.0 mm. Visible portions of the pancreas appear normal. The right kidney measures 10.0 x 4.7 x 4.8 cm,and is normal in echogenicity, without evidence for hydronephrosis.No shadowing stones demonstrated. 2.9 cm simple cyst at the lower pole and 1.8 cm simple cyst at the upper pole. No free fluid demonstrated. IMPRESSION: Liver masses suggesting metastatic disease until proven otherwise. Please refer to the corresponding CT study for further details.
--- NOTE | 2024-06-07 18:37 | NUR ---
DR. COOK AT BEDSIDE. STATES HE SPOKE TO [facility]. STATES HE SAW RESULTS OF CT. IS AT BEDSIDE, COMMUNICATING RESULTS WITH PT AT THIS TIME
[2024-06-07] MEDS: BUDESONIDE 0.5 MG/2 ML INH IH SCH (19:02)
[2024-06-07 19:05] VITALS: PULSE 96; RESP 18
[2024-06-07 19:06] VITALS: PULSE 96; RESP 18; O2SAT 99
[2024-06-07 19:14] LABS: HEMATOCRIT 20.2 % (42-54)
--- NOTE | 2024-06-07 19:23 | CONS ---
GASTROENTEROLOGY CONSULTATION NOTE Date of Consultation: Jun 07, 2024 Time of Consultation: 19:23 History of Present Illness: This is a 73-year-old male who is known to services with past medical history of hypertension, hyperlipidemia, COPD presented due to melena. He reports constipation history for which he uses stool softeners. He takes occasional aspirin. Hemoglobin 6.8 with a platelet count of 119 and MCV of 75.4. Troponin elevated measuring 532. He had a positive FOBT. Last EGD September 2023 revealing small hiatal hernia and mild diffuse gastritis. Colonoscopy December 2021 was normal. Review of Systems: CONSTITUTIONAL: No malaise or change in sensation of wellbeing. ENMT: No rhinorrhea, otorrhea, sinus pain, ear ache. CARDIOVASCULAR: No angina, palpitations, orthopnea or paroxysmal dyspnea. RESPIRATORY: No SOB. GASTROINTESTINAL: No abdominal pain, nausea, vomiting, diarrhea, hematemesis, melena or change in the patient's habitual bowel movements consistency/number. GENITOURINARY: No dysuria, hematuria or change in bladder continence. MUSCULOSKELETAL: No new muscle pain or decrease in muscular strength. No new joint swelling, redness or tenderness. SKIN: No new rash. Past Medical History: PAST MEDICAL HISTORY: Hypertension, hyperlipidemia, COPD PAST SURGICAL HISTORY: History of multiple back surgeries, history of colonoscopy, endoscopy PAST SOCIAL HISTORY: Former smoker. Quit more than two years. Denied any drug use. Drinks alcohol very occasionally FAMILY HISTORY: Denied any pertinent family history Coded Allergies: morphine (Unverified Allergy, Mild, 10/02/21) meperidine (Unverified Allergy, Unknown, 06/07/24) Coded Allergies: morphine (Unverified Allergy, Mild, 10/02/21) meperidine (Unverified Allergy, Unknown, 06/07/24) Physical Exam: GEN: Awake, alert, oriented in person, time and place, and in no acute distress. HEENT: No sinus tenderness. Tympanic membranes were not examined. No rhinorrhea. Oral pharyngeal mucosa is pink, moist and within normal limits. Neck is supple with no cervical lymphadenopathy, thyromegaly or JVD. CHEST: Inspection, palpation and percussion of the chest were unremarkable. Lung auscultation revealed normal breath sounds bilaterally. CARDIAC: PMI is within normal limits. Heart sounds are regular. Normal S1, S2. No gallop or murmur. ABD: Soft, non-tender and not distended. No peritoneal signs on palpation. No organomegaly. Normal bowel sounds. EXT: No cyanosis or clubbing. No edema. SKIN: Intact. No rashes. JOINTS: No evidence of synovitis or acute arthritis. NEURO: Alert and oriented to name, place and person. Cranial nerve examination is unremarkable. No focal motor deficits. Normal speech. Gait is normal. Strength is normal. Vital Sign (Last 24 Hours) 06/07/24 06/07/24 18:00 19:06 Temp 97.7 Pulse 96 Resp 18 B/P (MAP) 152/46 Pulse Ox 99 O2 Delivery N/A Room Air O2 Flow Rate 0 FiO2 21 Laboratory: [ ] Laboratory: Test 06/07/24 18:29 06/07/24 16:21 06/07/24 13:58 06/07/24 13:46 Range/Units Hemoglobin 6.0 *L 14.0-18.0 g/dL Hematocrit 20.2 *L 42-54 % Troponin I High Sensitivity 450 *H 4-75 ng/L Prothrombin Time 11.3 9.6-11.6 SEC Prothromb Time International Ratio 1.01 0.85-1.15 Activated Partial Thromboplast Time 20.3 L 26.3-35.5 SEC Stool Occult Blood POSITIVE H NEGATIVE SARS-CoV-2 Antigen (Rapid) PRESUMPTIVE NEGATIVE NEGATIVE Test 06/07/24 12:38 Range/Units White Blood Count 9.9 4.8-10.8 K/uL Red Blood Count 3.09 L 4.50-6.20 MIL/uL Mean Corpuscular Volume 75.4 L 79-99 fL Mean Corpuscular Hemoglobin 22.0 L 27.0-33.0 pg Mean Corpuscular Hemoglobin Concent 29.2 L 32.0-36.0 g/dL Red Cell Distribution Width 15.5 11.0-15.5 % Platelet Count 419 H 130-400 K/uL Mean Platelet Volume 10.1 7.5-10.5 fL Immature Granulocyte % (Auto) 1.1 H 0-1 % Neutrophils (%) (Auto) 83.7 H 40.0-77.0 % Lymphocytes (%) (Auto) 5.4 L 21.0-51.0 % Monocytes (%) (Auto) 6.2 3.0-13.0 % Eosinophils (%) (Auto) 3.1 0.0-8.0 % Basophils (%) (Auto) 0.5 0.0-5.0 % Neutrophils # (Auto) 8.2 H 1.8-7.7 K/uL Lymphocytes # (Auto) 0.5 L 1.0-4.8 K/uL Monocytes # (Auto) 0.6 0.1-1.0 K/uL Eosinophils # (Auto) 0.31 0.00-0.70 K/uL Basophils # (Auto) 0.05 0.00-0.20 K/uL Absolute Immature Granulocyte (auto 0.11 0-1 K/uL Nucleated Red Blood Cells 0.2 H 0.0-0.19 % White Cell Morphology Comment See comments Red Blood Cell Morphology See comments Sodium Level 138 136-145 mmol/L Potassium Level 4.2 3.5-5.1 mmol/L Chloride Level 100 L 101-111 mmol/L Carbon Dioxide Level 28 21-32 mmol/L Blood Urea Nitrogen 23 H 7-18 mg/dL Creatinine 1.2 0.5-1.3 mg/dL Glomerular Filtration Rate Calc 63 >90 mL/min Random Glucose 135 H 70-105 mg/dL Total Calcium 10.1 8.5-10.1 mg/dL Magnesium Level 1.80 1.80-2.40 mg/dL B-Type Natriuretic Peptide 74 0-100 pg/mL Current Medications Medications (Trade) Dose Ordered Sig/Kenneth Route PRN Reason Start Time Stop Time Status Last Admin Dose Admin Albuterol Sulfate (Proventil 0.083% 2.5mg/3ml) 2.5MG Q6H PRN IH SHORTNESS OF BREATH 06/07/24 16:00 07/07/24 15:59 06/07/24 16:31 2.5 MG Atorvastatin Calcium (LIPItor 40MG) 40 mg HS PO 06/07/24 21:00 07/07/24 20:59 Budesonide (Pulmicort 0.5 Mg/2ml) 0.5 mg BIDRESP IH 06/07/24 18:00 07/07/24 17:59 06/07/24 19:02 0.5 MG Heparin Sodium/ Dextrose 250 ml @ 0 mls/hr PROTOCOL IV 06/07/24 14:00 06/07/24 13:52 DC Lisinopril (Prinivil 20mg) 20 mg DAILY PO 06/08/24 09:00 07/08/24 08:59 Magnesium Sulfate 50 ml @ 0 mls/hr PROTOCOL PRN IV HYPOMAGNESEMIA 06/07/24 15:30 07/07/24 15:29 Pantoprazole Sodium 80 mg/ Sodium Chloride 100 ml @ 10 mls/hr Q10H IVP 06/07/24 14:00 07/07/24 13:59 06/07/24 14:17 10 MLS/HR Potassium Chloride 100 ml @ 50 mls/hr AD PRN IV POTASSIUM PROTOCOL 06/07/24 15:30 07/07/24 15:29 Sodium Chloride 1,000 ml @ 100 mls/hr Q10H IV 06/07/24 15:30 07/07/24 15:29 06/07/24 15:45 100 MLS/HR Diagnostics / Radiology: [COPY/PASTE HERE IF NO REPORTS PLEASE DELETE SECTION] Assessment: Melena DWAIN Elevated troponin HTN COPD Plan: 1. NPO 2. EGD in AM. I have discussed the risks, benefits, alternatives, and potential complications. Questions were answered and they agree to proceed. 3. Pantoprazole drip 80 mg IV bolus and then 8 mg/hr IV infusion for 72 hours 4. Octreotide 50 mcg IV bolus and then 50 mcg/hr IV infusion for 72 hours 5. Recommend checking Hg every 6 hours and transfuse to goal Hg >7. Please do not overtransfuse 6. Please contact our service if the patient has significant bleeding such as hematemesis and we can proceed sooner with the EGD Thanks you for allowing us to participate in the care of this patient! NAKUL FALCON [employer]ER Jun 07, 2024 19:23
[2024-06-07] MEDS: atorVAStatin 40 MG TABLET PO SCH (20:55)
[2024-06-08 01:52] LABS: HEMATOCRIT 23.4 % (42-54)
[2024-06-08 07:00] VITALS: PULSE 88; RESP 18
[2024-06-08 07:01] VITALS: PULSE 88; RESP 18; O2SAT 96
[2024-06-08] MEDS: LISINOPRIL 20 MG TABLET PO SCH (08:18)
[2024-06-08 08:19] LABS: HEMATOCRIT 20.9 % (42-54)
[2024-06-08] MEDS: PANTOPrazole 40 MG/VIAL ONE (08:20)
[2024-06-08] MEDS: MAGNESIUM 2GM PREMIX 50ML 50 ML IV PRN (09:13)
--- NOTE | 2024-06-08 09:51 | NUR ---
DR. BROWN PAGED FOR CARDIOLOGY CONSULT, AWAITING CALL BACK
--- NOTE | 2024-06-08 10:13 | NUR ---
CARDIOLOGY [facility] VISITING PT NOW
[2024-06-08] MEDS: acetaMINOPHEN 325 MG TAB PO ONE (10:26)
--- NOTE | 2024-06-08 10:29 | NUR ---
SPOKE TO [employer] H[employer]ORY TE[employer] DR. SMITH, STATES HE WILL LOOK INTO AND WILL CALL BACK
--- NOTE | 2024-06-08 10:40 | NUR ---
DR. SMITH STATES PT CARDIAC CLEARANCE MAY PROCEED FOR EGD
--- NOTE | 2024-06-08 12:01 | PN ---
GASTROENTEROLOGY PROGRESS NOTE Date of Visit: Jun 08, 2024 Time of Visit: 12:01 Events / Notes: No acute events overnight. Procedure canceled pending cardiac clearance. Denies fever, chills, abdominal pain, N/V, hematemesis, bloating, constipation, diarrhea, melena or hematochezia. Review of Systems: CONSTITUTIONAL: No malaise or change in sensation of wellbeing. ENMT: No rhinorrhea, otorrhea, sinus pain, ear ache. CARDIOVASCULAR: No angina, palpitations, orthopnea or paroxysmal dyspnea. RESPIRATORY: No SOB. GASTROINTESTINAL: No abdominal pain, nausea, vomiting, diarrhea, hematemesis, melena or change in the patient's habitual bowel movements consistency/number. GENITOURINARY: No dysuria, hematuria or change in bladder continence. MUSCULOSKELETAL: No new muscle pain or decrease in muscular strength. No new joint swelling, redness or tenderness. SKIN: No new rash. Physical Exam: GEN: Awake, alert, oriented in person, time and place, and in no acute distress. HEENT: No sinus tenderness. Tympanic membranes were not examined. No rhinorrhea. Oral pharyngeal mucosa is pink, moist and within normal limits. Neck is supple with no cervical lymphadenopathy, thyromegaly or JVD. CHEST: Inspection, palpation and percussion of the chest were unremarkable. Lung auscultation revealed normal breath sounds bilaterally. CARDIAC: PMI is within normal limits. Heart sounds are regular. Normal S1, S2. No gallop or murmur. ABD: Soft, non-tender and not distended. No peritoneal signs on palpation. No organomegaly. Normal bowel sounds. EXT: No cyanosis or clubbing. No edema. SKIN: Intact. No rashes. JOINTS: No evidence of synovitis or acute arthritis. NEURO: Alert and oriented to name, place and person. Cranial nerve examination is unremarkable. No focal motor deficits. Normal speech. Gait is normal. Strength is normal. Vital Signs (last 8hr) Date Time Temp Pulse Resp B/P (MAP) Pulse Ox O2 Delivery O2 Flow Rate FiO2 06/08/24 07:57 98.2 98 18 124/46 98 Room Air* 0 21 06/08/24 07:01 88 18 N/A Room Air 21 06/08/24 07:00 88 18 06/08/24 05:15 98.2 86 16 139/49 96 Room Air* 0 21 06/08/24 04:15 98.2 89 17 150/57 96 Room Air* 0 21 Laboratory: [ ] Laboratory: Test 06/08/24 07:00 06/08/24 01:19 06/07/24 16:21 06/07/24 13:58 Range/Units Hemoglobin 6.3 *L 14.0-18.0 g/dL Hematocrit 20.9 *L 42-54 % Troponin I High Sensitivity 404 *H 4-75 ng/L Prothrombin Time 11.3 9.6-11.6 SEC Prothromb Time International Ratio 1.01 0.85-1.15 Activated Partial Thromboplast Time 20.3 L 26.3-35.5 SEC Stool Occult Blood POSITIVE H NEGATIVE Test 06/07/24 13:46 06/07/24 12:38 Range/Units SARS-CoV-2 Antigen (Rapid) PRESUMPTIVE NEGATIVE NEGATIVE White Blood Count 9.9 4.8-10.8 K/uL Red Blood Count 3.09 L 4.50-6.20 MIL/uL Mean Corpuscular Volume 75.4 L 79-99 fL Mean Corpuscular Hemoglobin 22.0 L 27.0-33.0 pg Mean Corpuscular Hemoglobin Concent 29.2 L 32.0-36.0 g/dL Red Cell Distribution Width 15.5 11.0-15.5 % Platelet Count 419 H 130-400 K/uL Mean Platelet Volume 10.1 7.5-10.5 fL Immature Granulocyte % (Auto) 1.1 H 0-1 % Neutrophils (%) (Auto) 83.7 H 40.0-77.0 % Lymphocytes (%) (Auto) 5.4 L 21.0-51.0 % Monocytes (%) (Auto) 6.2 3.0-13.0 % Eosinophils (%) (Auto) 3.1 0.0-8.0 % Basophils (%) (Auto) 0.5 0.0-5.0 % Neutrophils # (Auto) 8.2 H 1.8-7.7 K/uL Lymphocytes # (Auto) 0.5 L 1.0-4.8 K/uL Monocytes # (Auto) 0.6 0.1-1.0 K/uL Eosinophils # (Auto) 0.31 0.00-0.70 K/uL Basophils # (Auto) 0.05 0.00-0.20 K/uL Absolute Immature Granulocyte (auto 0.11 0-1 K/uL Nucleated Red Blood Cells 0.2 H 0.0-0.19 % White Cell Morphology Comment See comments Red Blood Cell Morphology See comments Sodium Level 138 136-145 mmol/L Potassium Level 4.2 3.5-5.1 mmol/L Chloride Level 100 L 101-111 mmol/L Carbon Dioxide Level 28 21-32 mmol/L Blood Urea Nitrogen 23 H 7-18 mg/dL Creatinine 1.2 0.5-1.3 mg/dL Glomerular Filtration Rate Calc 63 >90 mL/min Random Glucose 135 H 70-105 mg/dL Total Calcium 10.1 8.5-10.1 mg/dL Magnesium Level 1.80 1.80-2.40 mg/dL B-Type Natriuretic Peptide 74 0-100 pg/mL Current Medications Medications (Trade) Dose Ordered Sig/Kenneth Route PRN Reason Start Time Stop Time Status Last Admin Dose Admin Albuterol Sulfate (Proventil 0.083% 2.5mg/3ml) 2.5MG Q6H PRN IH SHORTNESS OF BREATH 06/07/24 16:00 07/07/24 15:59 06/08/24 06:59 2.5 MG Atorvastatin Calcium (LIPItor 40MG) 40 mg HS PO 06/07/24 21:00 07/07/24 20:59 06/07/24 20:55 40 MG Budesonide (Pulmicort 0.5 Mg/2ml) 0.5 mg BIDRESP IH 06/07/24 18:00 07/07/24 17:59 06/08/24 06:59 0.5 MG Heparin Sodium/ Dextrose 250 ml @ 0 mls/hr PROTOCOL IV 06/07/24 14:00 06/07/24 13:52 DC Lisinopril (Prinivil 20mg) 20 mg DAILY PO 06/08/24 09:00 07/08/24 08:59 06/08/24 08:18 20 MG Magnesium Sulfate 50 ml @ 0 mls/hr PROTOCOL PRN IV HYPOMAGNESEMIA 06/07/24 15:30 07/07/24 15:29 06/08/24 09:13 25 MLS/HR Pantoprazole Sodium 80 mg/ Sodium Chloride 100 ml @ 10 mls/hr Q10H IVP 06/07/24 14:00 07/07/24 13:59 06/08/24 08:17 10 MLS/HR Potassium Chloride 100 ml @ 50 mls/hr AD PRN IV POTASSIUM PROTOCOL 06/07/24 15:30 07/07/24 15:29 Sodium Chloride 1,000 ml @ 100 mls/hr Q10H IV 06/07/24 15:30 07/07/24 15:29 06/07/24 15:45 100 MLS/HR Diagnostics / Radiology: [COPY/PASTE HERE IF NO REPORTS PLEASE DELETE SECTION] Assessment: Hiatal hernia Gastritis Hemorrhoids Diverticulosis DWAIN Elevated troponin HTN COPD Plan: Continue GI prophylaxis Advance diet as tolerated Avoid NSAIDs Antireflux measures Monitor H&H and transfuse as needed Call with questions, concerns or change in clinical status Patient to follow-up at clinic post discharge Thank you for this consult NAKUL FALCON Jun 08, 2024 12:01
[2024-06-08 14:33] LABS: HEMATOCRIT 25.8 % (42-54)
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
--- NOTE | 2024-06-08 18:13 | HMCSR ---
APPROVED REPORT EXAM: Two-dimensional and M-mode echocardiogram with Doppler and color Doppler. INDICATION ICD: TROPONIN ELEVATION 2D Dimensions RVDd3.8 cmLVEF(%)81.4 (>50%)LVED Vol(simp.)111.0 mL IVSd1.3 (0.7-1.1cm)FS(%)50 %LVES Vol(simp.)45.0 mL LVDd4.6 (3.8-5.6cm)LA (2D)4.2 (1.6-4.0cm)LVEF(%, simp.)60 % PWd1.3 (0.7-1.1cm)Ao Root(2D)4.0 (2.0-3.7cm)LA ESV INDEX (4CH)20.20 mL/m2 IVSs1.6 cmLVOT diam2.5 (1.8-2.4cm)LA ESV INDEX (2CH)27.70 mL/m2 LVDs2.3 (2.5-4.0cm)LA ESV INDEX (BP)24.00 mL/m2 PWs1.9 cm M-Mode Dimensions EPSS0.4 cm LA (MM)3.7 (1.6-4.0cm) Ao Root(MM)3.7 (2.0-3.7cm) Aortic Valve AoV VTI0.3 mAo Mean GR4.0 mmHgLVOT VTI0.23 m MICHELLE (VMAX)3.6 cm2Al P1/2T324 msAVA (VTI) 3.6 cm2 Mitral Valve MV E Vmax99.4 cm/sDECEL Fmka288 ms MV A Vmax82.0 cm/sP 1/2 T48 ms E/A ratio1.2MVA (PHT)4.6 cm2 TDI E/E' Wlczdd12.8E/E' Lateral9.0 Medial E' Peak V7.20 cm/sLateral E' Peak V11.00 cm/s Tricuspid Valve TR Vmax2.7 m/s TR Peak GR29.8 mmHg Left Ventricle Left ventricular cavity size is normal. Normal wall motion Mild concentric left ventricular hypertrop hy. LVEF is 60-65%. The left ventricular diastolic function is normal. Right Ventricle Right ventricle is within normal limits. The right ventricular systolic function is normal. Atria The left atrium size is normal. The right atrium size is normal. Aortic Valve The aortic valve is mildly thickened but opens well. Mild aortic regurgitation. There is no aortic va lvular stenosis. Mitral Valve Mitral valve leaflets open well. There is no mitral valve regurgitation noted. Cannot exclude mitral valve vegetation on anterior leaflet versus redundant valve/chordae versus mass There is no mitral va lve stenosis. Tricuspid Valve The tricuspid valve is normal in structure and function. There is mild tricuspid valve regurgitation noted. Pulmonic Valve The pulmonary valve is normal in structure and function. There is no pulmonic valvular regurgitation. Great Vessels The aortic root is normal in size. The IVC is normal in size and collapses >50% with inspiration. Pericardium No pericardial effusion. Conclusion LVEF is 60-65%. The left ventricular diastolic function is normal. Normal wall motion Normal diastolic function Normal LV size Mild aortic regurgitation. There is mild tricuspid valve regurgitation noted. Normal pulmonary pressures No pericardial effusion. Cannot exclude mitral valve vegetation on anterior leaflet versus redundant valve/chordae versus mass Consider JONATHAN
[2024-06-08 18:26] LABS: HEMATOCRIT 24.6 % (42-54)
[2024-06-08 18:55] VITALS: PULSE 82; RESP 18; O2SAT 98
--- NOTE | 2024-06-08 19:28 | PN ---
[facility] PROGRESS NOTE Date of Service: Jun 08, 2024 Time of Service: 19:21 SUBJECTIVE: 2/5 patient seen at bedside, no acute events overnight. CT of the abdomen/pelvis showed hypodensities in the liver consistent with metastatic liver disease. We will order CEA, CA 19-9, AFP and consult Oncology for further recommendations. GI consulted and recommending EGD, we will follow up postpr ocedure. Patient transfused 1 unit packed red blood cells, hemoglobin currently stable. Troponins mildly elevated however they have plateaued and are downtrending likely a sign of stress consistent with NSTEMI. Remainder of his labs are relatively unremarkable. REVIEW OF SYSTEMS 12 point review of systems negative unless noted in HPI PHYSICAL EXAM GENERAL APPEARANCE: The patient is awake, alert, and oriented, in no acute cardiopulmonary distress. Patient appears pain NEUROLOGICAL: Cranial nerves II-XII grossly intact. Motor is 5/5 in bilateral upper and lower extremities proximal to distal. No sensory deficits. HEENT: Face is symmetric. Pupils are equal and reactive. Extraocular movements are intact. NECK: Supple. No JVD. No thyromegaly. No submental, submandibular, pre- /postauricular, occipital or supraclavicular lymphadenopathy. CHEST: Normal chest expansion. No Telemetry. LUNGS: Absence of any rales, rhonchi or any wheezing. CARDIOVASCULAR: Regular. S1 and S2 normal. No appreciable rubs, murmurs or gallops. ABDOMEN: Soft, nontender, and nondistended. There is no rebound, voluntary guarding, or rigidity. : Deferred. No Palomares. EXTREMITIES: Non-edematous and not cyanotic. No clubbing. Good capillary refill. SKIN: No skin breakdown. Vital Signs (last 8hr) Date Time Temp Pulse Resp B/P (MAP) Pulse Ox O2 Delivery O2 Flow Rate FiO2 06/08/24 18:55 82 18 06/08/24 18:55 82 18 N/A Room Air 21 06/08/24 16:06 80 18 143/69 98 Room Air* 0 21 06/08/24 12:43 98.4 86 18 144/55 98 Room Air* 0 21 LABS: Laboratory: Test 06/08/24 18:15 06/08/24 01:19 06/07/24 16:21 06/07/24 13:58 Range/Units Hemoglobin 7.7 L 14.0-18.0 g/dL Hematocrit 24.6 L 42-54 % Troponin I High Sensitivity 404 *H 4-75 ng/L Prothrombin Time 11.3 9.6-11.6 SEC Prothromb Time International Ratio 1.01 0.85-1.15 Activated Partial Thromboplast Time 20.3 L 26.3-35.5 SEC Stool Occult Blood POSITIVE H NEGATIVE Test 06/07/24 13:46 06/07/24 12:38 Range/Units SARS-CoV-2 Antigen (Rapid) PRESUMPTIVE NEGATIVE NEGATIVE White Blood Count 9.9 4.8-10.8 K/uL Red Blood Count 3.09 L 4.50-6.20 MIL/uL Mean Corpuscular Volume 75.4 L 79-99 fL Mean Corpuscular Hemoglobin 22.0 L 27.0-33.0 pg Mean Corpuscular Hemoglobin Concent 29.2 L 32.0-36.0 g/dL Red Cell Distribution Width 15.5 11.0-15.5 % Platelet Count 419 H 130-400 K/uL Mean Platelet Volume 10.1 7.5-10.5 fL Immature Granulocyte % (Auto) 1.1 H 0-1 % Neutrophils (%) (Auto) 83.7 H 40.0-77.0 % Lymphocytes (%) (Auto) 5.4 L 21.0-51.0 % Monocytes (%) (Auto) 6.2 3.0-13.0 % Eosinophils (%) (Auto) 3.1 0.0-8.0 % Basophils (%) (Auto) 0.5 0.0-5.0 % Neutrophils # (Auto) 8.2 H 1.8-7.7 K/uL Lymphocytes # (Auto) 0.5 L 1.0-4.8 K/uL Monocytes # (Auto) 0.6 0.1-1.0 K/uL Eosinophils # (Auto) 0.31 0.00-0.70 K/uL Basophils # (Auto) 0.05 0.00-0.20 K/uL Absolute Immature Granulocyte (auto 0.11 0-1 K/uL Nucleated Red Blood Cells 0.2 H 0.0-0.19 % White Cell Morphology Comment See comments Red Blood Cell Morphology See comments Sodium Level 138 136-145 mmol/L Potassium Level 4.2 3.5-5.1 mmol/L Chloride Level 100 L 101-111 mmol/L Carbon Dioxide Level 28 21-32 mmol/L Blood Urea Nitrogen 23 H 7-18 mg/dL Creatinine 1.2 0.5-1.3 mg/dL Glomerular Filtration Rate Calc 63 >90 mL/min Random Glucose 135 H 70-105 mg/dL Total Calcium 10.1 8.5-10.1 mg/dL Magnesium Level 1.80 1.80-2.40 mg/dL B-Type Natriuretic Peptide 74 0-100 pg/mL Current Medications Medications (Trade) Dose Ordered Sig/Kenneth Route PRN Reason Start Time Stop Time Status Last Admin Dose Admin Albuterol Sulfate (Proventil 0.083% 2.5mg/3ml) 2.5MG Q6H PRN IH SHORTNESS OF BREATH 06/07/24 16:00 07/07/24 15:59 06/08/24 18:55 2.5 MG Atorvastatin Calcium (LIPItor 40MG) 40 mg HS PO 06/07/24 21:00 07/07/24 20:59 06/07/24 20:55 40 MG Budesonide (Pulmicort 0.5 Mg/2ml) 0.5 mg BIDRESP IH 06/07/24 18:00 07/07/24 17:59 06/08/24 18:55 0.5 MG Heparin Sodium/ Dextrose 250 ml @ 0 mls/hr PROTOCOL IV 06/07/24 14:00 06/07/24 13:52 DC Lisinopril (Prinivil 20mg) 20 mg DAILY PO 06/08/24 09:00 07/08/24 08:59 06/08/24 08:18 20 MG Magnesium Sulfate 50 ml @ 0 mls/hr PROTOCOL PRN IV HYPOMAGNESEMIA 06/07/24 15:30 07/07/24 15:29 06/08/24 09:13 25 MLS/HR Pantoprazole Sodium 80 mg/ Sodium Chloride 100 ml @ 10 mls/hr Q10H IVP 06/07/24 14:00 07/07/24 13:59 06/08/24 08:17 10 MLS/HR Potassium Chloride 100 ml @ 50 mls/hr AD PRN IV POTASSIUM PROTOCOL 06/07/24 15:30 07/07/24 15:29 Sodium Chloride 1,000 ml @ 100 mls/hr Q10H IV 06/07/24 15:30 07/07/24 15:29 06/08/24 13:42 100 MLS/HR DIAGNOSTICS / RADIOLOGY: [ ] ASSESSMENT: Hypodensities in the liver consistent with metastatic disease Melena with concern for GI bleed POA Acute symptomatic anemia Microcytic anemia Troponin elevation likely in setting of type 2 IN from anemia Hypertension Hyperlipidemia History of COPD History of gastric ulcer History of constipation PLAN: - patient to be admitted to [facility] - trend H&H, transfuse if less than seven - GI consulted, recommending EGD - CEA, AFP, CA 19-9 ordered, we will follow up - oncology consulted, appreciate recommendations - echo showing normal ejection fraction however mitral valve vegetation on anterior leaflet has not ruled out, if patient has bacteremia would recommend JONATHAN - cardiology consulted, appreciate recommendations Disposition: Pending Cardiology recommendations, EGD, GI recommendations, Oncology recommendations DEBBIE HAMILTON MD Jun 08, 2024 19:28
[2024-06-08 21:01] LABS: HEMATOCRIT 27.5 % (42-54)
[2024-06-08 23:23] VITALS: PULSE 92; RESP 20; O2SAT 97
[2024-06-09] VITALS (12 sets, daily range): BP systolic 141–150; BP diastolic 54–66; PULSE 69–98; RESP 16–20; TEMP 97.7–98; O2SAT 96–97
[2024-06-09 06:10] LABS: BASOPHILS # (AUTO) 0.03 K/uL (0.00-0.20); BASOPHILS % (AUTO) 0.3 % (0.0-5.0); EOSINOPHILS # (AUTO) 0.24 K/uL (0.00-0.70); EOSINOPHILS % (AUTO) 2.6 % (0.0-8.0); HEMATOCRIT 26.1 % (42-54); IMMATURE GRANULOCYTE ABSOLUTE 0.06 K/uL (0-1); LYMPHOCYTES # (AUTO) 0.6 K/uL (1.0-4.8); LYMPHOCYTES % (AUTO) 6.8 % (21.0-51.0); MEAN CORPUSCULAR HEMOGLOBIN 22.9 pg (27.0-33.0); MEAN CORPUSCULAR HGB CONC 30.3 g/dL (32.0-36.0); MEAN CORPUSCULAR VOLUME 75.7 fL (79-99); MONOCYTES # (AUTO) 0.8 K/uL (0.1-1.0); MONOCYTES % (AUTO) 8.9 % (3.0-13.0); NEUTROPHILS # (AUTO) 7.4 K/uL (1.8-7.7); NEUTROPHILS % (AUTO) 80.7 % (40.0-77.0); NUCLEATED RED BLOOD CELLS 0.2 % (0.0-0.19); PLATELET COUNT (AUTO) 354 K/uL (130-400); RED BLOOD CELL COUNT(AUTO) 3.45 MIL/uL (4.50-6.20); RED CELL DISTRIBUTION WIDTH 16.4 % (11.0-15.5); WHITE BLOOD COUNT (AUTO) 9.2 K/uL (4.8-10.8)
[2024-06-09 06:21] LABS: ALBUMIN 2.6 g/dL (3.5-5.0); BILIRUBIN,TOTAL 0.6 mg/dL (0.2-1.0); PHOSPHORUS 3.6 mg/dL (2.5-4.9); POTASSIUM 4.2 mmol/L (3.5-5.1); TOTAL PROTEIN, SERUM 5.8 g/dL (6.0-8.3)
[2024-06-09] MEDS ORDERED: hydrALAZine 20MG/ML VIAL IV PRN (10:30)
--- NOTE | 2024-06-09 13:00 | PN ---
[facility] PROGRESS NOTE Date of Service: Jun 09, 2024 Time of Service: 12:57 SUBJECTIVE: 06/08 patient seen at bedside, no acute events overnight. CT of the abdomen/pelvis showed hypodensities in the liver consistent with metastatic liver disease. We will order CEA, CA 19-9, AFP and consult Oncology for further recommendations. GI consulted and recommending EGD, we will follow up postpr ocedure. Patient transfused 1 unit packed red blood cells, hemoglobin currently stable. Troponins mildly elevated however they have plateaued and are downtrending likely a sign of stress consistent with NSTEMI. Remainder of his labs are relatively unremarkable. 06/09 patient is seen and examined at bedside, no acute events overnight, during my visit the patient is comfortable, alert oriented x3, following commands, he is currently NPO, awaiting EGD. BP 160 6-68, afebrile, saturating normal on room air. Hemoglobin today seven nine, hematocrit 26, platelet count 354. AFB 4.0, carcinoembryonic antigen 612. CA 19-9 pending. Echocardiogram with LVEF 60 65%. We will do CBC q.8 hours with transfusion of 1 unit of PRBC if hemoglobin less than 7. Oncology consultation requested, we will follow input and recommendation. REVIEW OF SYSTEMS 12 point review of systems negative unless noted in HPI PHYSICAL EXAM GENERAL APPEARANCE: The patient is awake, alert, and oriented, in no acute cardiopulmonary distress. Patient appears pain NEUROLOGICAL: Cranial nerves II-XII grossly intact. Motor is 5/5 in bilateral upper and lower extremities proximal to distal. No sensory deficits. HEENT: Face is symmetric. Pupils are equal and reactive. Extraocular movements are intact. NECK: Supple. No JVD. No thyromegaly. No submental, submandibular, pre-/post auricular, occipital or supraclavicular lymphadenopathy. CHEST: Normal chest expansion. No Telemetry. LUNGS: Absence of any rales, rhonchi or any wheezing. CARDIOVASCULAR: Regular. S1 and S2 normal. No appreciable rubs, murmurs or gallops. ABDOMEN: Soft, nontender, and nondistended. There is no rebound, voluntary guarding, or rigidity. : Deferred. No Palomares. EXTREMITIES: Non-edematous and not cyanotic. No clubbing. Good capillary refill. SKIN: No skin breakdown. Vital Signs (last 8hr) Date Time Temp Pulse Resp B/P (MAP) Pulse Ox O2 Delivery O2 Flow Rate FiO2 06/09/24 11:30 83 16 166/68 98 Room Air* 0 21 06/09/24 07:30 82 20 152/52 96 Room Air* 0 21 06/09/24 06:14 85 18 06/09/24 06:14 85 20 N/A Room Air 21 06/09/24 06:06 97.9 88 18 152/53 97 Room Air* 0 21 LABS: Laboratory: Test 06/09/24 10:45 06/09/24 06:00 06/09/24 05:56 06/08/24 07:00 Range/Units Iron Level 9 L 65-175 mcg/dL Total Iron Binding Capacity 300 250-450 mcg/dL Percent Iron Saturation 3.0 L 30-44 % Sodium Level 140 136-145 mmol/L Potassium Level 4.2 3.5-5.1 mmol/L Chloride Level 105 101-111 mmol/L Carbon Dioxide Level 26 21-32 mmol/L Blood Urea Nitrogen 18 7-18 mg/dL Creatinine 1.0 0.5-1.3 mg/dL Glomerular Filtration Rate Calc 79 >90 mL/min Random Glucose 121 H 70-105 mg/dL Total Calcium 9.2 8.5-10.1 mg/dL Phosphorus Level 3.6 2.5-4.9 mg/dL Magnesium Level 2.00 1.80-2.40 mg/dL Total Bilirubin 0.6 0.2-1.0 mg/dL Aspartate Amino Transf (AST/SGOT) 52 H 10-37 U/L Alanine Aminotransferase (ALT/SGPT) 35 12-78 U/L Alkaline Phosphatase 229 H 50-136 U/L Total Protein 5.8 L 6.0-8.3 g/dL Albumin 2.6 L 3.5-5.0 g/dL White Blood Count 9.2 4.8-10.8 K/uL Red Blood Count 3.45 L 4.50-6.20 MIL/uL Hemoglobin 7.9 L 14.0-18.0 g/dL Hematocrit 26.1 L 42-54 % Mean Corpuscular Volume 75.7 L 79-99 fL Mean Corpuscular Hemoglobin 22.9 L 27.0-33.0 pg Mean Corpuscular Hemoglobin Concent 30.3 L 32.0-36.0 g/dL Red Cell Distribution Width 16.4 H 11.0-15.5 % Platelet Count 354 130-400 K/uL Mean Platelet Volume 9.9 7.5-10.5 fL Immature Granulocyte % (Auto) 0.7 0-1 % Neutrophils (%) (Auto) 80.7 H 40.0-77.0 % Lymphocytes (%) (Auto) 6.8 L 21.0-51.0 % Monocytes (%) (Auto) 8.9 3.0-13.0 % Eosinophils (%) (Auto) 2.6 0.0-8.0 % Basophils (%) (Auto) 0.3 0.0-5.0 % Neutrophils # (Auto) 7.4 1.8-7.7 K/uL Lymphocytes # (Auto) 0.6 L 1.0-4.8 K/uL Monocytes # (Auto) 0.8 0.1-1.0 K/uL Eosinophils # (Auto) 0.24 0.00-0.70 K/uL Basophils # (Auto) 0.03 0.00-0.20 K/uL Absolute Immature Granulocyte (auto 0.06 0-1 K/uL Nucleated Red Blood Cells 0.2 H 0.0-0.19 % Tumor Marker Alpha Fetoprotein 3.9 0.0-8.4 ng/mL Carcinoembryonic Antigen 612.0 H 0.0-4.7 ng/mL Test 06/08/24 01:19 06/07/24 16:21 06/07/24 13:58 06/07/24 13:46 Range/Units Troponin I High Sensitivity 404 *H 4-75 ng/L Prothrombin Time 11.3 9.6-11.6 SEC Prothromb Time International Ratio 1.01 0.85-1.15 Activated Partial Thromboplast Time 20.3 L 26.3-35.5 SEC Stool Occult Blood POSITIVE H NEGATIVE SARS-CoV-2 Antigen (Rapid) PRESUMPTIVE NEGATIVE NEGATIVE Current Medications Medications (Trade) Dose Ordered Sig/Kenneth Route PRN Reason Start Time Stop Time Status Last Admin Dose Admin Albuterol Sulfate (Proventil 0.083% 2.5mg/3ml) 2.5MG Q6H PRN IH SHORTNESS OF BREATH 06/07/24 16:00 07/07/24 15:59 2/5/25 23:23 2.5 MG Atorvastatin Calcium (LIPItor 40MG) 40 mg HS PO 06/07/24 21:00 07/07/24 20:59 06/08/24 21:18 40 MG Budesonide (Pulmicort 0.5 Mg/2ml) 0.5 mg BIDRESP IH 06/07/24 18:00 07/07/24 17:59 06/09/24 06:13 0.5 MG Heparin Sodium/ Dextrose 250 ml @ 0 mls/hr PROTOCOL IV 06/07/24 14:00 06/07/24 13:52 DC Hydralazine HCl (APRESOLine 20MG INJ) 5 mg Q6H PRN IV ADMINISTER FOR SBP > 160 06/09/24 10:30 07/09/24 10:29 Lisinopril (Prinivil 20mg) 20 mg DAILY PO 06/08/24 09:00 07/08/24 08:59 06/08/24 08:18 20 MG Magnesium Sulfate 50 ml @ 0 mls/hr PROTOCOL PRN IV HYPOMAGNESEMIA 06/07/24 15:30 07/07/24 15:29 06/08/24 09:13 25 MLS/HR Pantoprazole Sodium 80 mg/ Sodium Chloride 100 ml @ 10 mls/hr Q10H IVP 06/07/24 14:00 07/07/24 13:59 06/09/24 05:40 10 MLS/HR Potassium Chloride 100 ml @ 50 mls/hr AD PRN IV POTASSIUM PROTOCOL 06/07/24 15:30 07/07/24 15:29 Sodium Chloride 1,000 ml @ 100 mls/hr Q10H IV 06/07/24 15:30 07/07/24 15:29 06/08/24 22:38 100 MLS/HR DIAGNOSTICS / RADIOLOGY: [ ] ASSESSMENT: Hypodensities in the liver consistent with metastatic disease Melena with concern for GI bleed POA Acute symptomatic anemia Microcytic anemia Troponin elevation likely in setting of type 2 PR from anemia Hypertension Hyperlipidemia History of COPD History of gastric ulcer History of constipation PLAN: - patient to be admitted to PCCU - trend H&H, transfuse if less than seven - GI consulted, recommending EGD today - tumor markers reviewed, patient with the elevated CEA, CA 19-9 pending. - oncology consulted, appreciate recommendations - echo showing normal ejection fraction however mitral valve vegetation on anterior leaflet has not ruled out, if patient has bacteremia would recommend JONATHAN - cardiology consulted, appreciate recommendations Disposition: Pending improvement in clinical condition. Plan of action discussed, all questions answered, agreed and understood the information provided. Total time spent 30 minutes. GRICELDA CABRERA MD Jun 09, 2024 13:00
[2024-06-09] MEDS ORDERED: proPOFol 10 MG/ML 20ML VIAL IV ONE (13:46)
[2024-06-09] MEDS ORDERED: LIDOCAINE PF 100MG/5ML (2%) SYRINGE 5ML ONE (13:47)
[2024-06-09] MEDS ORDERED: phenylEPHRINE HCL 10 MG/ML 1ML VIAL IV ONE (13:47)
--- NOTE | 2024-06-09 15:05 | NUR ---
PT RETURNED FROM EGD PROCEDURE.
[2024-06-09 15:47] LABS: HEMATOCRIT 27.3 % (42-54); MEAN CORPUSCULAR HEMOGLOBIN 23.5 pg (27.0-33.0); MEAN CORPUSCULAR HGB CONC 30.8 g/dL (32.0-36.0); MEAN CORPUSCULAR VOLUME 76.5 fL (79-99); NUCLEATED RED BLOOD CELLS 0.2 % (0.0-0.19); RED BLOOD CELL COUNT(AUTO) 3.57 MIL/uL (4.50-6.20); RED CELL DISTRIBUTION WIDTH 16.7 % (11.0-15.5); WHITE BLOOD COUNT (AUTO) 9.6 K/uL (4.8-10.8)
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
[2024-06-09] MEDS: PEG 3350/NA SULF,BICARB,CL/KCL 4000 ML SOLN PO ONE (18:39)
--- NOTE | 2024-06-09 21:20 | NUR ---
ADMIT PT ADMITTED TO ROOM 402, AAOX4. CLAIMS OF PAINS TO HIS RT ARM AND RT LEG. PT USED BEDSIDE COMMODE BUT HAS DIFFICULTY PUTTING PRESSURE ON HIS RT LEG DUE TO PAIN. STOOL IS CLEAR LIGHT YELLOW IN COLOR. ADMISSION CARE DONE. ADMISSION V/S MONITORED, STABLE. ADMISSION ASSESSMENT DONE, PLEASE REFER TO CHART. CONTINUED IVF OF NS AND PROTONIX DRIP FROM ER. PLACED PT COMFORTABLY IN BED. PLACED DIAPER ON PT AT THIS TIME DUE TO INCONTINENCE. PLACED ON CLEAR LIQUIDS FOR NOW AND INSTRUCTED TO BE NPO POST MN FOR COLONOSCOPY IN AM. ADMISSION DATA BASE COMPLETED. ORIENTED TO ROOM AND UNIT. IN FOR MORE CARE AND MANAGEMENT. Addendum: 06/09/24 at 2345 by WERNER FALCON RN RN Amended: Links added.
--- NOTE | 2024-06-09 21:22 | NUR ---
REPORT GIVEN TO WERNER RODRIGUEZ
--- NOTE | 2024-06-09 22:40 | NUR ---
CLOTH COVERER CLOTH COVERER DORI PEREZ MAKING ROUNDS IN THE FLOOR. REFERRED PT'S PAIN. NEW MED ORDER RECEIVED, PLEASE REFER TO CPOE. WILL MEDICATE PT.
[2024-06-09] MEDS: acetaMINOPHEN 325 MG TAB PO PRN (22:55)
[2024-06-10] VITALS (27 sets, daily range): BP systolic 115–180; BP diastolic 41–75; PULSE 70–99; RESP 15–20; TEMP 97.5–98.2; O2SAT 90–98
[2024-06-10 03:52] LABS: BASOPHILS # (AUTO) 0.03 K/uL (0.00-0.20); BASOPHILS % (AUTO) 0.4 % (0.0-5.0); EOSINOPHILS # (AUTO) 0.31 K/uL (0.00-0.70); EOSINOPHILS % (AUTO) 4.3 % (0.0-8.0); HEMATOCRIT 23.4 % (42-54); IMMATURE GRANULOCYTE ABSOLUTE 0.03 K/uL (0-1); LYMPHOCYTES # (AUTO) 0.7 K/uL (1.0-4.8); LYMPHOCYTES % (AUTO) 9.4 % (21.0-51.0); MEAN CORPUSCULAR HEMOGLOBIN 23.1 pg (27.0-33.0); MEAN CORPUSCULAR HGB CONC 30.3 g/dL (32.0-36.0); MONOCYTES # (AUTO) 0.8 K/uL (0.1-1.0); MONOCYTES % (AUTO) 11.1 % (3.0-13.0); NEUTROPHILS # (AUTO) 5.3 K/uL (1.8-7.7); NEUTROPHILS % (AUTO) 74.4 % (40.0-77.0); PLATELET COUNT (AUTO) 304 K/uL (130-400); RED BLOOD CELL COUNT(AUTO) 3.08 MIL/uL (4.50-6.20); RED CELL DISTRIBUTION WIDTH 16.8 % (11.0-15.5); WHITE BLOOD COUNT (AUTO) 7.1 K/uL (4.8-10.8)
[2024-06-10 04:17] LABS: ALBUMIN 2.3 g/dL (3.5-5.0); BILIRUBIN,TOTAL 0.6 mg/dL (0.2-1.0); MAGNESIUM 1.7 mg/dL (1.80-2.40); POTASSIUM 3.8 mmol/L (3.5-5.1); TOTAL PROTEIN, SERUM 5.3 g/dL (6.0-8.3)
--- NOTE | 2024-06-10 06:26 | NUR ---
GI LAB GI STAFF IN TO PICK PT UP. PT SALINE LOCKED. WHEELED DOWN TO GI LAB FOR PROCEDURE.
--- NOTE | 2024-06-10 07:24 | NUR ---
RECEIVED REPORT FROM NURSE; PATIENT IN GI LAB
[2024-06-10] MEDS ORDERED: proPOFol 10 MG/ML 20ML VIAL IV ONE (07:33)
--- NOTE | 2024-06-10 08:25 | NUR ---
RETURN TI UNIT. IN NO DISTRESS. LATE BREAKFAST TRAY ORDERED
[2024-06-10 08:58] LABS: HEMATOCRIT 26.8 % (42-54); MEAN CORPUSCULAR HEMOGLOBIN 23.4 pg (27.0-33.0); MEAN CORPUSCULAR HGB CONC 30.2 g/dL (32.0-36.0); MEAN CORPUSCULAR VOLUME 77.5 fL (79-99); RED BLOOD CELL COUNT(AUTO) 3.46 MIL/uL (4.50-6.20); RED CELL DISTRIBUTION WIDTH 16.7 % (11.0-15.5); WHITE BLOOD COUNT (AUTO) 7.8 K/uL (4.8-10.8)
[2024-06-10] MEDS ORDERED: MAGNESIUM 2GM PREMIX 50ML 50 ML IV SCH (09:00)
--- NOTE | 2024-06-10 09:35 | PN ---
[facility] PROGRESS NOTE Date of Service: Jun 10, 2024 Time of Service: 09:33 SUBJECTIVE: 06/08 patient seen at bedside, no acute events overnight. CT of the abdomen/pelvis showed hypodensities in the liver consistent with metastatic liver disease. We will order CEA, CA 19-9, AFP and consult Oncology for further recommendations. GI consulted and recommending EGD, we will follow up postpr ocedure. Patient transfused 1 unit packed red blood cells, hemoglobin currently stable. Troponins mildly elevated however they have plateaued and are downtrending likely a sign of stress consistent with NSTEMI. Remainder of his labs are relatively unremarkable. 06/09 patient is seen and examined at bedside, no acute events overnight, during my visit the patient is comfortable, alert oriented x3, following commands, he is currently NPO, awaiting EGD. BP 160 6-68, afebrile, saturating normal on room air. Hemoglobin today seven nine, hematocrit 26, platelet count 354. AFB 4.0, carcinoembryonic antigen 612. CA 19-9 pending. Echocardiogram with LVEF 60 65%. We will do CBC q.8 hours with transfusion of 1 unit of PRBC if hemoglobin less than 7. Oncology consultation requested, we will follow input and recommendation. 06/10 patient is seen and examined at bedside, no acute events overnight, tolerating diet at time of my visit. hemodynamically stable, afebrile, saturating normal on room air. Blood pressure better today 149/55, rest of the vital signs are unremarkable. Hemoglobin 8.1, hematocrit 26.8. AFB 4.0, carcinoembryonic antigen 612. CA 19-9 pending. Echocardiogram with LVEF 60 65%. Patient had colonoscopy yesterday, finding of hemorrhoids, diverticulosis of the sigmoid colon and melanosis of the colon, three 5 to 8 mm polyps at the hepatic flexure and in the cecum, removed with a cold snare. Resected. And retrieved. Patient evaluated by oncologist, may need liver biopsy. REVIEW OF SYSTEMS 12 point review of systems negative unless noted in HPI PHYSICAL EXAM GENERAL APPEARANCE: The patient is awake, alert, and oriented, in no acute cardiopulmonary distress. Patient appears pain NEUROLOGICAL: Cranial nerves II-XII grossly intact. Motor is 5/5 in bilateral upper and lower extremities proximal to distal. No sensory deficits. HEENT: Face is symmetric. Pupils are equal and reactive. Extraocular movements are intact. NECK: Supple. No JVD. No thyromegaly. No submental, submandibular, pre- /postauricular, occipital or supraclavicular lymphadenopathy. CHEST: Normal chest expansion. No Telemetry. LUNGS: Absence of any rales, rhonchi or any wheezing. CARDIOVASCULAR: Regular. S1 and S2 normal. No appreciable rubs, murmurs or gallops. ABDOMEN: Soft, nontender, and nondistended. There is no rebound, voluntary guarding, or rigidity. : Deferred. No Palomares. EXTREMITIES: Non-edematous and not cyanotic. No clubbing. Good capillary refill. SKIN: No skin breakdown. Vital Signs (last 8hr) Date Time Temp Pulse Resp B/P (MAP) Pulse Ox O2 Delivery O2 Flow Rate FiO2 06/10/24 08:19 97.9 77 15 149/55 98 Room Air 06/10/24 08:14 80 16 154/51 98 Room Air 06/10/24 08:09 72 17 142/46 98 Room Air 06/10/24 08:04 72 16 137/47 100 Room Air 06/10/24 07:59 70 16 135/49 100 Nonrebreathing Mask 10.0 06/10/24 07:54 71 17 131/44 100 Nonrebreathing Mask 10.0 06/10/24 07:49 97.5 72 16 123/42 100 Nonrebreathing Mask 10.0 06/10/24 04:00 98.2 89 20 153/69 97 Room Air LABS: Laboratory: Test 06/10/24 08:45 06/10/24 03:44 06/09/24 10:45 06/09/24 06:00 Range/Units White Blood Count 7.8 4.8-10.8 K/uL Red Blood Count 3.46 L 4.50-6.20 MIL/uL Hemoglobin 8.1 L 14.0-18.0 g/dL Hematocrit 26.8 L 42-54 % Mean Corpuscular Volume 77.5 L 79-99 fL Mean Corpuscular Hemoglobin 23.4 L 27.0-33.0 pg Mean Corpuscular Hemoglobin Concent 30.2 L 32.0-36.0 g/dL Red Cell Distribution Width 16.7 H 11.0-15.5 % Platelet Count 308 130-400 K/uL Mean Platelet Volume 9.8 7.5-10.5 fL Nucleated Red Blood Cells 0.0 0.0-0.19 % Immature Granulocyte % (Auto) 0.4 0-1 % Neutrophils (%) (Auto) 74.4 40.0-77.0 % Lymphocytes (%) (Auto) 9.4 L 21.0-51.0 % Monocytes (%) (Auto) 11.1 3.0-13.0 % Eosinophils (%) (Auto) 4.3 0.0-8.0 % Basophils (%) (Auto) 0.4 0.0-5.0 % Neutrophils # (Auto) 5.3 1.8-7.7 K/uL Lymphocytes # (Auto) 0.7 L 1.0-4.8 K/uL Monocytes # (Auto) 0.8 0.1-1.0 K/uL Eosinophils # (Auto) 0.31 0.00-0.70 K/uL Basophils # (Auto) 0.03 0.00-0.20 K/uL Absolute Immature Granulocyte (auto 0.03 0-1 K/uL Sodium Level 139 136-145 mmol/L Potassium Level 3.8 3.5-5.1 mmol/L Chloride Level 104 101-111 mmol/L Carbon Dioxide Level 29 21-32 mmol/L Blood Urea Nitrogen 13 7-18 mg/dL Creatinine 1.0 0.5-1.3 mg/dL Glomerular Filtration Rate Calc 79 >90 mL/min Random Glucose 96 70-105 mg/dL Total Calcium 8.6 8.5-10.1 mg/dL Magnesium Level 1.70 L 1.80-2.40 mg/dL Total Bilirubin 0.6 0.2-1.0 mg/dL Aspartate Amino Transf (AST/SGOT) 46 H 10-37 U/L Alanine Aminotransferase (ALT/SGPT) 29 12-78 U/L Alkaline Phosphatase 196 H 50-136 U/L Total Protein 5.3 L 6.0-8.3 g/dL Albumin 2.3 L 3.5-5.0 g/dL Iron Level 9 L 65-175 mcg/dL Total Iron Binding Capacity 300 250-450 mcg/dL Percent Iron Saturation 3.0 L 30-44 % Phosphorus Level 3.6 2.5-4.9 mg/dL Current Medications Medications (Trade) Dose Ordered Sig/Kenneth Route PRN Reason Start Time Stop Time Status Last Admin Dose Admin Acetaminophen (TYLenol 325MG TAB) 650 mg Q4H PRN PO PAIN/FEVER 06/09/24 23:00 07/09/24 22:59 06/09/24 22:55 650 MG Albuterol Sulfate (Proventil 0.083% 2.5mg/3ml) 2.5MG Q6H PRN IH SHORTNESS OF BREATH 06/07/24 16:00 07/07/24 15:59 06/09/24 19:12 2.5 MG Atorvastatin Calcium (LIPItor 40MG) 40 mg HS PO 06/07/24 21:00 07/07/24 20:59 06/09/24 20:23 40 MG Budesonide (Pulmicort 0.5 Mg/2ml) 0.5 mg BIDRESP IH 06/07/24 18:00 07/07/24 17:59 06/09/24 19:12 0.5 MG Heparin Sodium/ Dextrose 250 ml @ 0 mls/hr PROTOCOL IV 06/07/24 14:00 06/07/24 13:52 DC Hydralazine HCl (APRESOLine 20MG INJ) 5 mg Q6H PRN IV ADMINISTER FOR SBP > 160 06/09/24 10:30 07/09/24 10:29 Iron Sucrose (VenoFER) 100 mg DAILY IV 06/10/24 09:00 06/12/24 09:01 Lisinopril (Prinivil 20mg) 20 mg DAILY PO 06/08/24 09:00 07/08/24 08:59 06/08/24 08:18 20 MG Magnesium Sulfate 50 ml @ 0 mls/hr PROTOCOL IV 06/10/24 09:00 06/10/24 08:52 DC Magnesium Sulfate 50 ml @ 0 mls/hr PROTOCOL PRN IV HYPOMAGNESEMIA 06/07/24 15:30 07/07/24 15:29 06/10/24 05:14 25 MLS/HR Pantoprazole Sodium 80 mg/ Sodium Chloride 100 ml @ 10 mls/hr Q10H IVP 06/07/24 14:00 07/07/24 13:59 06/10/24 05:18 10 MLS/HR Potassium Chloride 100 ml @ 50 mls/hr AD PRN IV POTASSIUM PROTOCOL 06/07/24 15:30 07/07/24 15:29 Sodium Chloride 1,000 ml @ 100 mls/hr Q10H IV 06/07/24 15:30 07/07/24 15:29 06/10/24 05:18 100 MLS/HR DIAGNOSTICS / RADIOLOGY: [ ] ASSESSMENT: Hypodensities in the liver consistent with metastatic disease Melena with concern for GI bleed POA Acute symptomatic anemia Microcytic anemia Troponin elevation likely in setting of type 2 LA from anemia Hypertension Hyperlipidemia History of COPD History of gastric ulcer History of constipation PLAN: - patient to be admitted to PCCU - trend H&H, transfuse if less than seven - GI consulted, recommending EGD today - tumor markers reviewed, patient with the elevated CEA, CA 19-9 pending. - oncology consulted, appreciate recommendations - echo showing normal ejection fraction however mitral valve vegetation on anterior leaflet has not ruled out, if patient has bacteremia would recommend JONATHAN - cardiology consulted, appreciate recommendations Disposition: Pending improvement in clinical condition. Plan of action discussed, all questions answered, agreed and understood the information provided. Total time spent 30 minutes. GRICELDA CABRERA MD Jun 10, 2024 09:35
[2024-06-10] MEDS: IRON sUCROse COMPLEX 100 MG/5 ML VIAL IV SCH (09:38)
[2024-06-10] MEDS: PoTASSium chloRIDE 20MEQ/100ML 100 ML IV ONE (09:38)
--- NOTE | 2024-06-10 10:04 | NUR ---
DCP Patient lives alone in trailer with two steps and has no room for wheelchair. can perform most ADL's on his own but it is "real difficult" to shower and wash feet or maintain feet care such as clipping toenails. 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 States he does have a cane, shower chair and nebulizer for albuterol. Denies home health services or dialysis services. PCP - Erwin Cee MD Pharmacy - [facility]. States Isidoro Ron Jr, Son [phone]; [employer] Manager [phone] upon discharge. Requests assistance for a provider for help with ADL's after hospitalization. Referred to primary care provider for home provider. Per patient nurse, patient does not know possible diagnosis, metastatic cancer colon, possible liver and bone. Addendum: 06/10/24 at 1015 by REFUGIO GUZMAN RN CM Amended: Links added.
[2024-06-10] MEDS: hydroMORPHone 0.5 MG SYG (0.5MG/0.5ML) IVP PRN (12:04)
--- NOTE | 2024-06-10 13:01 | NUR ---
DIET CHAMGED TO FINELY CHOPPED A/P PATIENT REQUEST D/T POOR DENTITION. ALSO NOTED PT CHEWING ON TOBACCO . DID TEACHING ON HEALTH BENEFITS OF QUITTING ALL NICOTINE PRODUCTS
[2024-06-10 14:51] LABS: HEMATOCRIT 24.3 % (42-54); MEAN CORPUSCULAR VOLUME 76.4 fL (79-99); RED BLOOD CELL COUNT(AUTO) 3.18 MIL/uL (4.50-6.20); RED CELL DISTRIBUTION WIDTH 16.8 % (11.0-15.5); WHITE BLOOD COUNT (AUTO) 9.1 K/uL (4.8-10.8)
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
[2024-06-10 21:09] LABS: HEMATOCRIT 25.8 % (42-54); MEAN CORPUSCULAR HEMOGLOBIN 23.1 pg (27.0-33.0); MEAN CORPUSCULAR HGB CONC 29.8 g/dL (32.0-36.0); MEAN CORPUSCULAR VOLUME 77.5 fL (79-99); NUCLEATED RED BLOOD CELLS 0.3 % (0.0-0.19); RED BLOOD CELL COUNT(AUTO) 3.33 MIL/uL (4.50-6.20); WHITE BLOOD COUNT (AUTO) 7.8 K/uL (4.8-10.8)
[2024-06-11] VITALS (11 sets, daily range): BP systolic 128–169; BP diastolic 54–85; PULSE 81–96; RESP 17–20; TEMP 98–99.7; O2SAT 96–100
[2024-06-11 04:29] LABS: BASOPHILS # (AUTO) 0.03 K/uL (0.00-0.20); BASOPHILS % (AUTO) 0.3 % (0.0-5.0); EOSINOPHILS # (AUTO) 0.28 K/uL (0.00-0.70); EOSINOPHILS % (AUTO) 3.2 % (0.0-8.0); HEMATOCRIT 23.7 % (42-54); IMMATURE GRANULOCYTE ABSOLUTE 0.08 K/uL (0-1); LYMPHOCYTES # (AUTO) 0.7 K/uL (1.0-4.8); LYMPHOCYTES % (AUTO) 7.6 % (21.0-51.0); MEAN CORPUSCULAR HEMOGLOBIN 23.3 pg (27.0-33.0); MEAN CORPUSCULAR VOLUME 77.7 fL (79-99); MONOCYTES # (AUTO) 0.8 K/uL (0.1-1.0); MONOCYTES % (AUTO) 9.1 % (3.0-13.0); NEUTROPHILS # (AUTO) 6.9 K/uL (1.8-7.7); NEUTROPHILS % (AUTO) 78.9 % (40.0-77.0); PLATELET COUNT (AUTO) 323 K/uL (130-400); RED BLOOD CELL COUNT(AUTO) 3.05 MIL/uL (4.50-6.20); RED CELL DISTRIBUTION WIDTH 17.1 % (11.0-15.5); WHITE BLOOD COUNT (AUTO) 8.7 K/uL (4.8-10.8)
[2024-06-11 04:39] LABS: ALBUMIN 1.9 g/dL (3.5-5.0); BILIRUBIN,TOTAL 0.4 mg/dL (0.2-1.0); CREATININE 0.9 mg/dL (0.5-1.3); MAGNESIUM 1.9 mg/dL (1.80-2.40); POTASSIUM 3.9 mmol/L (3.5-5.1)
[2024-06-11] MEDS: LIDOCAINE 5% TOPICAL PATCH TP SCH (09:36)
--- NOTE | 2024-06-11 10:54 | PN ---
[facility] PROGRESS NOTE Date of Service: Jun 11, 2024 Time of Service: 10:50 SUBJECTIVE: 06/08 patient seen at bedside, no acute events overnight. CT of the abdomen/pelvis showed hypodensities in the liver consistent with metastatic liver disease. We will order CEA, CA 19-9, AFP and consult Oncology for further recommendations. GI consulted and recommending EGD, we will follow up postpr ocedure. Patient transfused 1 unit packed red blood cells, hemoglobin currently stable. Troponins mildly elevated however they have plateaued and are downtrending likely a sign of stress consistent with NSTEMI. Remainder of his labs are relatively unremarkable. 06/09 patient is seen and examined at bedside, no acute events overnight, during my visit the patient is comfortable, alert oriented x3, following commands, he is currently NPO, awaiting EGD. BP 160 6-68, afebrile, saturating normal on room air. Hemoglobin today seven nine, hematocrit 26, platelet count 354. AFB 4.0, carcinoembryonic antigen 612. CA 19-9 pending. Echocardiogram with LVEF 60 65%. We will do CBC q.8 hours with transfusion of 1 unit of PRBC if hemoglobin less than 7. Oncology consultation requested, we will follow input and recommendation. 06/10 patient is seen and examined at bedside, no acute events overnight, tolerating diet at time of my visit. hemodynamically stable, afebrile, saturating normal on room air. Blood pressure better today 149/55, rest of the vital signs are unremarkable. Hemoglobin 8.1, hematocrit 26.8. AFB 4.0, carcinoembryonic antigen 612. CA 19-9 pending. Echocardiogram with LVEF 60 65%. Patient had colonoscopy yesterday, finding of hemorrhoids, diverticulosis of the sigmoid colon and melanosis of the colon, three 5 to 8 mm polyps at the hepatic flexure and in the cecum, removed with a cold snare. Resected. And retrieved. Patient evaluated by oncologist, may need liver biopsy. 06/11 patient is seen and examined at bedside, no acute events overnight, case discussed with the RN. During my visit patient comfortably bed, BP mildly elevated 146/66, afebrile, saturating normal on room air. Hemoglobin stable 7.1, hematocrit 23.7. Denies melena, no hematochezia, no hematemesis. No hematuria. Patient with a tumor marker carcinoembryonic antigen elevated at 612. AFB negative. CA 19-9 pending. Echocardiogram with LVEF 60 65%. Patient had colonoscopy yesterday, finding of hemorrhoids, diverticulosis of the sigmoid colon and melanosis of the colon, three 5 to 8 mm polyps at the hepatic flexure and in the cecum, removed with a cold snare. Resected. And retrieved. Patient may benefit from liver biopsy. Follow GI input and recommendations. Pending oncology input and recommendation. REVIEW OF SYSTEMS 12 point review of systems negative unless noted in HPI PHYSICAL EXAM GENERAL APPEARANCE: The patient is awake, alert, and oriented, in no acute cardiopulmonary distress. Patient appears pain NEUROLOGICAL: Cranial nerves II-XII grossly intact. Motor is 5/5 in bilateral upper and lower extremities proximal to distal. No sensory deficits. HEENT: Face is symmetric. Pupils are equal and reactive. Extraocular movements are intact. NECK: Supple. No JVD. No thyromegaly. No submental, submandibular, pre- /postauricular, occipital or supraclavicular lymphadenopathy. CHEST: Normal chest expansion. No Telemetry. LUNGS: Absence of any rales, rhonchi or any wheezing. CARDIOVASCULAR: Regular. S1 and S2 normal. No appreciable rubs, murmurs or gallops. ABDOMEN: Soft, nontender, and nondistended. There is no rebound, voluntary guarding, or rigidity. : Deferred. No Palomares. EXTREMITIES: Non-edematous and not cyanotic. No clubbing. Good capillary refill. SKIN: No skin breakdown. Vital Signs (last 8hr) Date Time Temp Pulse Resp B/P (MAP) Pulse Ox O2 Delivery O2 Flow Rate FiO2 06/11/24 08:00 99.7 96 18 146/66 94 Room Air 06/11/24 06:51 18 N/A Room Air 21 06/11/24 06:51 89 18 06/11/24 04:54 98.2 94 19 129/61 94 Room Air LABS: Laboratory: Test 06/11/24 03:41 Range/Units White Blood Count 8.7 4.8-10.8 K/uL Red Blood Count 3.05 L 4.50-6.20 MIL/uL Hemoglobin 7.1 L 14.0-18.0 g/dL Hematocrit 23.7 L 42-54 % Mean Corpuscular Volume 77.7 L 79-99 fL Mean Corpuscular Hemoglobin 23.3 L 27.0-33.0 pg Mean Corpuscular Hemoglobin Concent 30.0 L 32.0-36.0 g/dL Red Cell Distribution Width 17.1 H 11.0-15.5 % Platelet Count 323 # 130-400 K/uL Mean Platelet Volume 10.4 7.5-10.5 fL Immature Granulocyte % (Auto) 0.9 0-1 % Neutrophils (%) (Auto) 78.9 H 40.0-77.0 % Lymphocytes (%) (Auto) 7.6 L 21.0-51.0 % Monocytes (%) (Auto) 9.1 3.0-13.0 % Eosinophils (%) (Auto) 3.2 0.0-8.0 % Basophils (%) (Auto) 0.3 0.0-5.0 % Neutrophils # (Auto) 6.9 1.8-7.7 K/uL Lymphocytes # (Auto) 0.7 L 1.0-4.8 K/uL Monocytes # (Auto) 0.8 0.1-1.0 K/uL Eosinophils # (Auto) 0.28 0.00-0.70 K/uL Basophils # (Auto) 0.03 0.00-0.20 K/uL Absolute Immature Granulocyte (auto 0.08 0-1 K/uL Nucleated Red Blood Cells 0.0 0.0-0.19 % Sodium Level 135 L 136-145 mmol/L Potassium Level 3.9 3.5-5.1 mmol/L Chloride Level 103 101-111 mmol/L Carbon Dioxide Level 25 21-32 mmol/L Blood Urea Nitrogen 12 7-18 mg/dL Creatinine 0.9 0.5-1.3 mg/dL Glomerular Filtration Rate Calc 90 >90 mL/min Random Glucose 109 H 70-105 mg/dL Total Calcium 7.7 L 8.5-10.1 mg/dL Magnesium Level 1.90 1.80-2.40 mg/dL Total Bilirubin 0.4 # 0.2-1.0 mg/dL Aspartate Amino Transf (AST/SGOT) 46 H 10-37 U/L Alanine Aminotransferase (ALT/SGPT) 21 # 12-78 U/L Alkaline Phosphatase 200 H 50-136 U/L Total Protein 5.0 L 6.0-8.3 g/dL Albumin 1.9 L 3.5-5.0 g/dL Current Medications Medications (Trade) Dose Ordered Sig/Kenneth Route PRN Reason Start Time Stop Time Status Last Admin Dose Admin Acetaminophen (TYLenol 325MG TAB) 650 mg Q4H PRN PO PAIN/FEVER 06/09/24 23:00 07/09/24 22:59 06/11/24 09:38 650 MG Albuterol Sulfate (Proventil 0.083% 2.5mg/3ml) 2.5MG Q6H PRN IH SHORTNESS OF BREATH 06/07/24 16:00 07/07/24 15:59 06/11/24 06:58 2.5 MG Atorvastatin Calcium (LIPItor 40MG) 40 mg HS PO 06/07/24 21:00 07/07/24 20:59 06/10/24 20:20 40 MG Budesonide (Pulmicort 0.5 Mg/2ml) 0.5 mg BIDRESP IH 06/07/24 18:00 07/07/24 17:59 06/11/24 06:57 0.5 MG Heparin Sodium/ Dextrose 250 ml @ 0 mls/hr PROTOCOL IV 06/07/24 14:00 06/07/24 13:52 DC Hydralazine HCl (APRESOLine 20MG INJ) 5 mg Q6H PRN IV ADMINISTER FOR SBP > 160 06/09/24 10:30 07/09/24 10:29 Hydromorphone HCl (DiLAUDid 0.5MG INJ) 0.2 mg Q4H PRN IVP SEVERE PAIN (7-10) 06/10/24 12:00 06/15/24 11:59 06/11/24 02:08 0.2 MG Iron Sucrose (VenoFER) 100 mg DAILY IV 06/10/24 09:00 06/12/24 09:01 06/11/24 09:36 100 MG Lidocaine (Lidoderm Patch 5%) 1 patch DAILY TP 06/11/24 09:00 07/11/24 08:59 06/11/24 09:36 1 PATCH Lisinopril (Prinivil 20mg) 20 mg DAILY PO 06/08/24 09:00 07/08/24 08:59 06/11/24 09:37 20 MG Magnesium Sulfate 50 ml @ 0 mls/hr PROTOCOL IV 06/10/24 09:00 06/10/24 08:52 DC Magnesium Sulfate 50 ml @ 0 mls/hr PROTOCOL PRN IV HYPOMAGNESEMIA 06/07/24 15:30 07/07/24 15:29 06/10/24 05:14 25 MLS/HR Pantoprazole Sodium 80 mg/ Sodium Chloride 100 ml @ 10 mls/hr Q10H IVP 06/07/24 14:00 07/07/24 13:59 06/11/24 06:08 10 MLS/HR Potassium Chloride 100 ml @ 50 mls/hr AD PRN IV POTASSIUM PROTOCOL 06/07/24 15:30 07/07/24 15:29 Sodium Chloride 1,000 ml @ 100 mls/hr Q10H IV 06/07/24 15:30 07/07/24 15:29 06/11/24 06:08 100 MLS/HR DIAGNOSTICS / RADIOLOGY: [ ] ASSESSMENT: Hypodensities in the liver consistent with metastatic disease Melena with concern for GI bleed POA Acute symptomatic anemia Microcytic anemia Troponin elevation likely in setting of type 2 TN from anemia Hypertension Hyperlipidemia History of COPD History of gastric ulcer History of constipation PLAN: - patient remains admitted to the medical floor - continue to follow CBC transfuse as needed - continue to follow GI input and recommendations. Patient may benefit from liver biopsy, pending oncology input and recommendations. - continue to follow tumor marker - GI and DVT prophylaxis Disposition: Pending improvement in clinical condition. Plan of action discussed, all questions answered, agreed and understood the information provided. Total time spent 30 minutes. GRICELDA CABRERA MD Jun 11, 2024 10:54
[2024-06-11] MEDS: amLODIPine 5 MG TAB PO SCH (11:00)
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
--- NOTE | 2024-06-11 19:02 | CONS ---
ONCOLOGY CONSULTATION REASON FOR CONSULTATION: Multiple hepatic lesions, suspicious for malignancy. HISTORY OF PRESENT ILLNESS: This is a 73-year-old male patient who was admitted to the hospital with severe anemia. He was found to have GI bleeding. Colonoscopy showed evidence of benign-appearing polyps. EGD was not performed. The patient required to be transfused. He is on IV iron now. He denies any previous history of GI bleeding. Denies any history of malignancy. PAST MEDICAL HISTORY: Pertinent for hypertension, hyperlipidemia, COPD. He denies any history of CAD or CVA. SOCIAL HISTORY: Retired, , no history of smoking or alcohol intake. FAMILY HISTORY: Noncontributory. MEDICATIONS: As per the chart. ALLERGIES: None. REVIEW OF SYSTEMS: Per history of present illness. PHYSICAL EXAMINATION: GENERAL: Elderly male patient, alert and oriented x 3, no acute distress. VITAL SIGNS: Stable, afebrile. HEENT: With pale sclerae. No jaundice, no oropharyngeal lesions. NECK: Supple. No lymphadenopathy. HEART: Regular and rhythmic. LUNGS: With diminished breathing sounds in both bases. No crackles or wheezing. ABDOMEN: Soft, no tenderness with some degree of hepatomegaly and tenderness on palpation. Bowel sounds present. EXTREMITIES: No pedal edema. No calf tenderness. LABORATORY DATA: WBC 8.7, hemoglobin 7.1, platelet count 323. Sodium 135, potassium 3.9, BUN 12, creatinine 0.9, total bilirubin 0.4, alkaline phosphatase 200, AST 46, ALT 21, albumin 1.9. ASSESSMENT: * Severe anemia. * Gastrointestinal bleeding. * Multiple hepatic masses, suspicion for malignancy. PLAN: The patient remains stable after transfusion. He will continue on IV iron. I had reviewed and discussed CT scan results with the patient. I recommended a CT-guided liver mass biopsy. He also may benefit from an EGD. I will order lab work including tumor markers and follow results. TID: [id number] RECEIPT: [id number]
[2024-06-12] VITALS (11 sets, daily range): BP systolic 127–165; BP diastolic 64–86; PULSE 76–100; RESP 15–18; TEMP 97.7–98.2; O2SAT 96–98
[2024-06-12 04:22] LABS: HEMATOCRIT 24.5 % (42-54); MEAN CORPUSCULAR HEMOGLOBIN 23.5 pg (27.0-33.0); MEAN CORPUSCULAR HGB CONC 29.4 g/dL (32.0-36.0); MEAN CORPUSCULAR VOLUME 79.8 fL (79-99); RED BLOOD CELL COUNT(AUTO) 3.07 MIL/uL (4.50-6.20); RED CELL DISTRIBUTION WIDTH 17.2 % (11.0-15.5)
[2024-06-12 04:48] LABS: ALBUMIN 1.9 g/dL (3.5-5.0); BILIRUBIN,TOTAL 0.4 mg/dL (0.2-1.0); CREATININE 0.7 mg/dL (0.5-1.3); MAGNESIUM 1.8 mg/dL (1.80-2.40); POTASSIUM 3.7 mmol/L (3.5-5.1); TOTAL PROTEIN, SERUM 4.9 g/dL (6.0-8.3)
[2024-06-12] MEDS: PANTOPrazole 40 MG TAB DR PO SCH (08:32)
[2024-06-12] MEDS: doCUSate SODIUM 100 MG CAP PO SCH (12:16)
[2024-06-12] MEDS: LACTULOSE 20 GM/30 ML UDCUP PO PRN (12:16)
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
[2024-06-12] MEDS: hydrOXYzine 25 MG TABLET PO SCH (14:56)
--- NOTE | 2024-06-12 16:06 | PN ---
[facility] PROGRESS NOTE Date of Service: Jun 12, 2024 Time of Service: 15:57 SUBJECTIVE: 06/08 patient seen at bedside, no acute events overnight. CT of the abdomen/pelvis showed hypodensities in the liver consistent with metastatic liver disease. We will order CEA, CA 19-9, AFP and consult Oncology for further recommendations. GI consulted and recommending EGD, we will follow up postpr ocedure. Patient transfused 1 unit packed red blood cells, hemoglobin currently stable. Troponins mildly elevated however they have plateaued and are downtrending likely a sign of stress consistent with NSTEMI. Remainder of his labs are relatively unremarkable. 06/09 patient is seen and examined at bedside, no acute events overnight, during my visit the patient is comfortable, alert oriented x3, following commands, he is currently NPO, awaiting EGD. BP 160 6-68, afebrile, saturating normal on room air. Hemoglobin today seven nine, hematocrit 26, platelet count 354. AFB 4.0, carcinoembryonic antigen 612. CA 19-9 pending. Echocardiogram with LVEF 60 65%. We will do CBC q.8 hours with transfusion of 1 unit of PRBC if hemoglobin less than 7. Oncology consultation requested, we will follow input and recommendation. 06/10 patient is seen and examined at bedside, no acute events overnight, tolerating diet at time of my visit. hemodynamically stable, afebrile, saturating normal on room air. Blood pressure better today 149/55, rest of the vital signs are unremarkable. Hemoglobin 8.1, hematocrit 26.8. AFB 4.0, carcinoembryonic antigen 612. CA 19-9 pending. Echocardiogram with LVEF 60 65%. Patient had colonoscopy yesterday, finding of hemorrhoids, diverticulosis of the sigmoid colon and melanosis of the colon, three 5 to 8 mm polyps at the hepatic flexure and in the cecum, removed with a cold snare. Resected. And retrieved. Patient evaluated by oncologist, may need liver biopsy. 06/11 patient is seen and examined at bedside, no acute events overnight, case discussed with the RN. During my visit patient comfortably bed, BP mildly elevated 146/66, afebrile, saturating normal on room air. Hemoglobin stable 7.1, hematocrit 23.7. Denies melena, no hematochezia, no hematemesis. No hematuria. Patient with a tumor marker carcinoembryonic antigen elevated at 612. AFB negative. CA 19-9 pending. Echocardiogram with LVEF 60 65%. Patient had colonoscopy yesterday, finding of hemorrhoids, diverticulosis of the sigmoid colon and melanosis of the colon, three 5 to 8 mm polyps at the hepatic flexure and in the cecum, removed with a cold snare. Resected. And retrieved. Patient may benefit from liver biopsy. Follow GI input and recommendations. Pending oncology input and recommendation. 06/12 seen at bedside, no acute events overnight. He has been evaluated by Oncology who recommends CT-guided needle biopsy of the liver, we will be done tomorrow. Once procedure has been completed we will determine if patient is g ood candidate for discharge home to follow up outpatient for pathology results. Hemoglobin stable REVIEW OF SYSTEMS 12 point review of systems negative unless noted in HPI PHYSICAL EXAM GENERAL APPEARANCE: The patient is awake, alert, and oriented, in no acute cardiopulmonary distress. Patient appears pain NEUROLOGICAL: Cranial nerves II-XII grossly intact. Motor is 5/5 in bilateral upper and lower extremities proximal to distal. No sensory deficits. HEENT: Face is symmetric. Pupils are equal and reactive. Extraocular movements are intact. NECK: Supple. No JVD. No thyromegaly. No submental, submandibular, pre- /postauricular, occipital or supraclavicular lymphadenopathy. CHEST: Normal chest expansion. No Telemetry. LUNGS: Absence of any rales, rhonchi or any wheezing. CARDIOVASCULAR: Regular. S1 and S2 normal. No appreciable rubs, murmurs or gallops. ABDOMEN: Soft, nontender, and nondistended. There is no rebound, voluntary guarding, or rigidity. : Deferred. No Palomares. EXTREMITIES: Non-edematous and not cyanotic. No clubbing. Good capillary refill. SKIN: No skin breakdown. Vital Signs (last 8hr) Date Time Temp Pulse Resp B/P (MAP) Pulse Ox O2 Delivery O2 Flow Rate FiO2 06/12/24 12:00 98.2 89 16 127/71 97 Room Air 0.0 06/12/24 08:00 98 Room Air* 0 21 LABS: Laboratory: Test 06/12/24 03:14 06/11/24 03:41 Range/Units White Blood Count 9.0 4.8-10.8 K/uL Red Blood Count 3.07 L 4.50-6.20 MIL/uL Hemoglobin 7.2 L 14.0-18.0 g/dL Hematocrit 24.5 L 42-54 % Mean Corpuscular Volume 79.8 79-99 fL Mean Corpuscular Hemoglobin 23.5 L 27.0-33.0 pg Mean Corpuscular Hemoglobin Concent 29.4 L 32.0-36.0 g/dL Red Cell Distribution Width 17.2 H 11.0-15.5 % Platelet Count 304 130-400 K/uL Mean Platelet Volume 9.9 7.5-10.5 fL Nucleated Red Blood Cells 0.0 0.0-0.19 % Sodium Level 139 136-145 mmol/L Potassium Level 3.7 3.5-5.1 mmol/L Chloride Level 106 101-111 mmol/L Carbon Dioxide Level 27 21-32 mmol/L Blood Urea Nitrogen 11 7-18 mg/dL Creatinine 0.7 0.5-1.3 mg/dL Glomerular Filtration Rate Calc 97 >90 mL/min Random Glucose 118 H 70-105 mg/dL Total Calcium 7.8 L 8.5-10.1 mg/dL Magnesium Level 1.80 1.80-2.40 mg/dL Total Bilirubin 0.4 0.2-1.0 mg/dL Aspartate Amino Transf (AST/SGOT) 43 H 10-37 U/L Alanine Aminotransferase (ALT/SGPT) 22 12-78 U/L Alkaline Phosphatase 209 H 50-136 U/L Lactate Dehydrogenase 212 81-234 U/L Total Protein 4.9 L 6.0-8.3 g/dL Albumin 1.9 L 3.5-5.0 g/dL Vitamin B12 Level 4502 H 193-986 pg/mL Immature Granulocyte % (Auto) 0.9 0-1 % Neutrophils (%) (Auto) 78.9 H 40.0-77.0 % Lymphocytes (%) (Auto) 7.6 L 21.0-51.0 % Monocytes (%) (Auto) 9.1 3.0-13.0 % Eosinophils (%) (Auto) 3.2 0.0-8.0 % Basophils (%) (Auto) 0.3 0.0-5.0 % Neutrophils # (Auto) 6.9 1.8-7.7 K/uL Lymphocytes # (Auto) 0.7 L 1.0-4.8 K/uL Monocytes # (Auto) 0.8 0.1-1.0 K/uL Eosinophils # (Auto) 0.28 0.00-0.70 K/uL Basophils # (Auto) 0.03 0.00-0.20 K/uL Absolute Immature Granulocyte (auto 0.08 0-1 K/uL Current Medications Medications (Trade) Dose Ordered Sig/Kenneth Route PRN Reason Start Time Stop Time Status Last Admin Dose Admin Acetaminophen (TYLenol 325MG TAB) 650 mg Q4H PRN PO PAIN/FEVER 06/09/24 23:00 07/09/24 22:59 06/11/24 09:38 650 MG Albuterol Sulfate (Proventil 0.083% 2.5mg/3ml) 2.5MG Q6H PRN IH SHORTNESS OF BREATH 06/07/24 16:00 07/07/24 15:59 06/12/24 00:18 2.5 MG Amlodipine Besylate (NorvASC 5MG TAB) 5 mg DAILY PO 06/11/24 11:00 07/11/24 10:59 06/12/24 08:32 5 MG Atorvastatin Calcium (LIPItor 40MG) 40 mg HS PO 06/07/24 21:00 07/07/24 20:59 06/11/24 20:14 40 MG Budesonide (Pulmicort 0.5 Mg/2ml) 0.5 mg BIDRESP IH 06/07/24 18:00 07/07/24 17:59 06/12/24 06:17 0.5 MG Docusate Sodium (COLace 100MG CAP) 100 mg BID PO 06/12/24 12:00 07/12/24 11:59 06/12/24 12:16 100 MG Docusate Sodium (COLace 100MG CAP) 100 mg BID PO 06/12/24 21:00 06/12/24 11:51 DC Heparin Sodium/ Dextrose 250 ml @ 0 mls/hr PROTOCOL IV 06/07/24 14:00 06/07/24 13:52 DC Hydralazine HCl (APRESOLine 20MG INJ) 5 mg Q6H PRN IV ADMINISTER FOR SBP > 160 06/09/24 10:30 07/09/24 10:29 Hydromorphone HCl (DiLAUDid 0.5MG INJ) 0.2 mg Q4H PRN IVP SEVERE PAIN (7-10) 06/10/24 12:00 06/15/24 11:59 06/12/24 14:56 0.2 MG Hydroxyzine HCl (ATArax 25MG TAB) 25 mg TID PO 06/12/24 14:00 07/12/24 13:59 06/12/24 14:56 25 MG Iron Sucrose (VenoFER) 100 mg DAILY IV 06/10/24 09:00 06/12/24 09:01 DC 06/12/24 08:32 100 MG Lactulose (Constulose 20gm/ 30ml Udcup) 20 gm BID PRN PO CONSTIPATION 06/12/24 12:00 07/12/24 11:59 06/12/24 12:16 20 GM Lidocaine (Lidoderm Patch 5%) 1 patch DAILY TP 06/11/24 09:00 07/11/24 08:59 06/12/24 08:32 1 PATCH Lisinopril (Prinivil 20mg) 20 mg DAILY PO 06/08/24 09:00 07/08/24 08:59 06/12/24 08:34 20 MG Magnesium Sulfate 50 ml @ 0 mls/hr PROTOCOL IV 06/10/24 09:00 06/10/24 08:52 DC Magnesium Sulfate 50 ml @ 0 mls/hr PROTOCOL PRN IV HYPOMAGNESEMIA 06/07/24 15:30 07/07/24 15:29 06/10/24 05:14 25 MLS/HR Nicotine (Nicoderm) 21 mg DAILY TD 06/13/24 09:00 07/13/24 08:59 Pantoprazole Sodium (PROTonix 40MG TAB) 40 mg DAILY PO 06/12/24 09:00 07/12/24 08:59 06/12/24 08:32 40 MG Pantoprazole Sodium 80 mg/ Sodium Chloride 100 ml @ 10 mls/hr Q10H IVP 06/07/24 14:00 06/11/24 10:55 DC 06/11/24 06:08 10 MLS/HR Potassium Chloride 100 ml @ 50 mls/hr AD PRN IV POTASSIUM PROTOCOL 06/07/24 15:30 07/07/24 15:29 Sodium Chloride 1,000 ml @ 100 mls/hr Q10H IV 06/07/24 15:30 07/07/24 15:29 06/12/24 06:08 100 MLS/HR DIAGNOSTICS / RADIOLOGY: [ ] ASSESSMENT: Hypodensities in the liver consistent with metastatic disease Melena with concern for GI bleed POA Acute symptomatic anemia Microcytic anemia Troponin elevation likely in setting of type 2 ND from anemia Hypertension Hyperlipidemia History of COPD History of gastric ulcer History of constipation PLAN: - patient remains admitted to the medical floor - continue to follow CBC transfuse as needed - continue to follow GI input and recommendations. Patient may benefit from liver biopsy, pending oncology input and recommendations. - continue to follow tumor marker - Trend H/H - GI and DVT prophylaxis Disposition: Pending CT guided needle biopsy DEBBIE HAMILTON MD Jun 12, 2024 16:06
[2024-06-12] MEDS ORDERED: doCUSate SODIUM 100 MG CAP PO SCH (21:00)
[2024-06-13] VITALS (19 sets, daily range): BP systolic 117–176; BP diastolic 53–90; PULSE 76–99; RESP 15–19; TEMP 97.2–99.2; O2SAT 94–100
[2024-06-13] MEDS: NICOTINE 21 MG/ 24 HR PATCH TD SCH (08:03)
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
--- NOTE | 2024-06-13 11:46 | PN ---
[facility] PROGRESS NOTE Date of Service: Jun 13, 2024 Time of Service: 11:42 SUBJECTIVE: 06/08 patient seen at bedside, no acute events overnight. CT of the abdomen/pelvis showed hypodensities in the liver consistent with metastatic liver disease. We will order CEA, CA 19-9, AFP and consult Oncology for further recommendations. GI consulted and recommending EGD, we will follow up postp rocedure. Patient transfused 1 unit packed red blood cells, hemoglobin currently stable. Troponins mildly elevated however they have plateaued and are downtrending likely a sign of stress consistent with NSTEMI. Remainder of his labs are relatively unremarkable. 06/09 patient is seen and examined at bedside, no acute events overnight, during my visit the patient is comfortable, alert oriented x3, following commands, he is currently NPO, awaiting EGD. BP 160 6-68, afebrile, saturating normal on room air. Hemoglobin today seven nine, hematocrit 26, platelet count 354. AFB 4.0, carcinoembryonic antigen 612. CA 19-9 pending. Echocardiogram with LVEF 60 65%. We will do CBC q.8 hours with transfusion of 1 unit of PRBC if hemoglobin less than 7. Oncology consultation requested, we will follow input and recommendation. 06/10 patient is seen and examined at bedside, no acute events overnight, tolerating diet at time of my visit. hemodynamically stable, afebrile, saturating normal on room air. Blood pressure better today 149/55, rest of the vital signs are unremarkable. Hemoglobin 8.1, hematocrit 26.8. AFB 4.0, carcinoembryonic antigen 612. CA 19-9 pending. Echocardiogram with LVEF 60 65%. Patient had colonoscopy yesterday, finding of hemorrhoids, diverticulosis of the sigmoid colon and melanosis of the colon, three 5 to 8 mm polyps at the hepatic flexure and in the cecum, removed with a cold snare. Resected. And retrieved. Patient evaluated by oncologist, may need liver biopsy. 06/11 patient is seen and examined at bedside, no acute events overnight, case discussed with the RN. During my visit patient comfortably bed, BP mildly elevated 146/66, afebrile, saturating normal on room air. Hemoglobin stable 7.1, hematocrit 23.7. Denies melena, no hematochezia, no hematemesis. No hematuria. Patient with a tumor marker carcinoembryonic antigen elevated at 612. AFB negative. CA 19-9 pending. Echocardiogram with LVEF 60 65%. Patient had colonoscopy yesterday, finding of hemorrhoids, diverticulosis of the sigmoid colon and melanosis of the colon, three 5 to 8 mm polyps at the hepatic flexure and in the cecum, removed with a cold snare. Resected. And retrieved. Patient may benefit from liver biopsy. Follow GI input and recommendations. Pending oncology input and recommendation. 06/12 seen at bedside, no acute events overnight. He has been evaluated by Oncology who recommends CT-guided needle biopsy of the liver, we will be done tomorrow. Once procedure has been completed we will determine if patient is good candidate for discharge home to follow up outpatient for pathology results. Hemoglobin stable 06/13 patient seen at bedside, no acute events overnight. Patient evaluated by Physical therapy who [facility], case management to assist. Today he is pending a CT-guided biopsy of the liver. He has been afebrile, hemodynamically stable saturating well on room air. Hemoglobin improved from 7.1 up to 7.2, remainder of his labs are relatively unremarkable. REVIEW OF SYSTEMS 12 point review of systems negative unless noted in HPI PHYSICAL EXAM GENERAL APPEARANCE: The patient is awake, alert, and oriented, in no acute cardiopulmonary distress. Patient appears pain NEUROLOGICAL: Cranial nerves II-XII grossly intact. Motor is 5/5 in bilateral upper and lower extremities proximal to distal. No sensory deficits. HEENT: Face is symmetric. Pupils are equal and reactive. Extraocular movements are intact. NECK: Supple. No JVD. No thyromegaly. No submental, submandibular, pre- /postauricular, occipital or supraclavicular lymphadenopathy. CHEST: Normal chest expansion. No Telemetry. LUNGS: Absence of any rales, rhonchi or any wheezing. CARDIOVASCULAR: Regular. S1 and S2 normal. No appreciable rubs, murmurs or gallops. ABDOMEN: Soft, nontender, and nondistended. There is no rebound, voluntary guarding, or rigidity. : Deferred. No Palomares. EXTREMITIES: Non-edematous and not cyanotic. No clubbing. Good capillary refill. SKIN: No skin breakdown. Vital Signs (last 8hr) Date Time Temp Pulse Resp B/P (MAP) Pulse Ox O2 Delivery O2 Flow Rate FiO2 06/13/24 08:00 97.2 89 17 161/72 100 Room Air 0.0 06/13/24 07:16 99 18 N/A Room Air 21 06/13/24 07:14 99 18 06/13/24 04:05 99.1 86 18 129/61 95 Room Air LABS: Laboratory: Test 06/12/24 03:14 Range/Units White Blood Count 9.0 4.8-10.8 K/uL Red Blood Count 3.07 L 4.50-6.20 MIL/uL Hemoglobin 7.2 L 14.0-18.0 g/dL Hematocrit 24.5 L 42-54 % Mean Corpuscular Volume 79.8 79-99 fL Mean Corpuscular Hemoglobin 23.5 L 27.0-33.0 pg Mean Corpuscular Hemoglobin Concent 29.4 L 32.0-36.0 g/dL Red Cell Distribution Width 17.2 H 11.0-15.5 % Platelet Count 304 130-400 K/uL Mean Platelet Volume 9.9 7.5-10.5 fL Nucleated Red Blood Cells 0.0 0.0-0.19 % Sodium Level 139 136-145 mmol/L Potassium Level 3.7 3.5-5.1 mmol/L Chloride Level 106 101-111 mmol/L Carbon Dioxide Level 27 21-32 mmol/L Blood Urea Nitrogen 11 7-18 mg/dL Creatinine 0.7 0.5-1.3 mg/dL Glomerular Filtration Rate Calc 97 >90 mL/min Random Glucose 118 H 70-105 mg/dL Total Calcium 7.8 L 8.5-10.1 mg/dL Magnesium Level 1.80 1.80-2.40 mg/dL Total Bilirubin 0.4 0.2-1.0 mg/dL Aspartate Amino Transf (AST/SGOT) 43 H 10-37 U/L Alanine Aminotransferase (ALT/SGPT) 22 12-78 U/L Alkaline Phosphatase 209 H 50-136 U/L Lactate Dehydrogenase 212 81-234 U/L Total Protein 4.9 L 6.0-8.3 g/dL Albumin 1.9 L 3.5-5.0 g/dL Vitamin B12 Level 4502 H 193-986 pg/mL Current Medications Medications (Trade) Dose Ordered Sig/Kenneth Route PRN Reason Start Time Stop Time Status Last Admin Dose Admin Acetaminophen (TYLenol 325MG TAB) 650 mg Q4H PRN PO PAIN/FEVER 06/09/24 23:00 07/09/24 22:59 06/11/24 09:38 650 MG Albuterol Sulfate (Proventil 0.083% 2.5mg/3ml) 2.5MG Q6H PRN IH SHORTNESS OF BREATH 06/07/24 16:00 07/07/24 15:59 06/13/24 07:14 2.5 MG Amlodipine Besylate (NorvASC 5MG TAB) 5 mg DAILY PO 06/11/24 11:00 07/11/24 10:59 06/13/24 08:03 5 MG Atorvastatin Calcium (LIPItor 40MG) 40 mg HS PO 06/07/24 21:00 07/07/24 20:59 06/12/24 20:15 40 MG Budesonide (Pulmicort 0.5 Mg/2ml) 0.5 mg BIDRESP IH 06/07/24 18:00 07/07/24 17:59 06/13/24 07:14 0.5 MG Docusate Sodium (COLace 100MG CAP) 100 mg BID PO 06/12/24 12:00 07/12/24 11:59 06/13/24 08:03 100 MG Docusate Sodium (COLace 100MG CAP) 100 mg BID PO 06/12/24 21:00 06/12/24 11:51 DC Heparin Sodium/ Dextrose 250 ml @ 0 mls/hr PROTOCOL IV 06/07/24 14:00 06/07/24 13:52 DC Hydralazine HCl (APRESOLine 20MG INJ) 5 mg Q6H PRN IV ADMINISTER FOR SBP > 160 06/09/24 10:30 07/09/24 10:29 Hydromorphone HCl (DiLAUDid 0.5MG INJ) 0.2 mg Q4H PRN IVP SEVERE PAIN (7-10) 06/10/24 12:00 06/15/24 11:59 06/13/24 08:03 0.2 MG Hydroxyzine HCl (ATArax 25MG TAB) 25 mg TID PO 06/12/24 14:00 07/12/24 13:59 06/13/24 08:03 25 MG Iron Sucrose (VenoFER) 100 mg DAILY IV 06/10/24 09:00 06/12/24 09:01 DC 06/12/24 08:32 100 MG Lactulose (Constulose 20gm/ 30ml Udcup) 20 gm BID PRN PO CONSTIPATION 06/12/24 12:00 07/12/24 11:59 06/12/24 12:16 20 GM Lidocaine (Lidoderm Patch 5%) 1 patch DAILY TP 06/11/24 09:00 07/11/24 08:59 06/13/24 08:03 1 PATCH Lisinopril (Prinivil 20mg) 20 mg DAILY PO 06/08/24 09:00 07/08/24 08:59 06/13/24 08:03 20 MG Magnesium Sulfate 50 ml @ 0 mls/hr PROTOCOL IV 06/10/24 09:00 06/10/24 08:52 DC Magnesium Sulfate 50 ml @ 0 mls/hr PROTOCOL PRN IV HYPOMAGNESEMIA 06/07/24 15:30 07/07/24 15:29 06/10/24 05:14 25 MLS/HR Nicotine (Nicoderm) 21 mg DAILY TD 06/13/24 09:00 07/13/24 08:59 Pantoprazole Sodium (PROTonix 40MG TAB) 40 mg DAILY PO 06/12/24 09:00 07/12/24 08:59 06/13/24 08:03 40 MG Pantoprazole Sodium 80 mg/ Sodium Chloride 100 ml @ 10 mls/hr Q10H IVP 06/07/24 14:00 06/11/24 10:55 DC 06/11/24 06:08 10 MLS/HR Potassium Chloride 100 ml @ 50 mls/hr AD PRN IV POTASSIUM PROTOCOL 06/07/24 15:30 07/07/24 15:29 Sodium Chloride 1,000 ml @ 100 mls/hr Q10H IV 06/07/24 15:30 07/07/24 15:29 06/13/24 02:05 100 MLS/HR DIAGNOSTICS / RADIOLOGY: [ ] ASSESSMENT: Hypodensities in the liver consistent with metastatic disease Melena with concern for GI bleed POA Acute symptomatic anemia Microcytic anemia Troponin elevation likely in setting of type 2 DC from anemia Hypertension Hyperlipidemia History of COPD History of gastric ulcer History of constipation PLAN: - patient remains admitted to the medical floor - continue to follow CBC transfuse as needed - Continue nicotine patch - Continue hydroxyzine 25mg TID for anxiety/depression - Continue lactulose BID, titrate to 2 BM per day - Continue lisinopril 20mg q24h - continue to follow GI input and recommendations. Patient may benefit from liver biopsy, pending oncology input and recommendations. - continue to follow tumor marker - Trend H/H - GI and DVT prophylaxis - Case management to assist with SNF placement fo rrehab Disposition: Pending CT guided needle biopsy, SNF placement DEBBIE HAMILTON MD Jun 13, 2024 11:45
--- NOTE | 2024-06-13 13:23 | PN ---
GASTROENTEROLOGY PROGRESS NOTE Date of Visit: Jun 13, 2024 Time of Visit: 13:23 Events / Notes: No acute events overnight. Patient s/p EGD revealing hiatal hernia and gastritis. Colonoscopy revealing hemorrhoids and diverticulosis, colon polyps. Review of Systems: CONSTITUTIONAL: No malaise or change in sensation of wellbeing. ENMT: No rhinorrhea, otorrhea, sinus pain, ear ache. CARDIOVASCULAR: No angina, palpitations, orthopnea or paroxysmal dyspnea. RESPIRATORY: No SOB. GASTROINTESTINAL: No abdominal pain, nausea, vomiting, diarrhea, hematemesis, melena or change in the patient's habitual bowel movements consistency/number. GENITOURINARY: No dysuria, hematuria or change in bladder continence. MUSCULOSKELETAL: No new muscle pain or decrease in muscular strength. No new joint swelling, redness or tenderness. SKIN: No new rash. Physical Exam: GEN: Awake, alert, oriented in person, time and place, and in no acute distress. HEENT: No sinus tenderness. Tympanic membranes were not examined. No rhinorrhea. Oral pharyngeal mucosa is pink, moist and within normal limits. Neck is supple with no cervical lymphadenopathy, thyromegaly or JVD. CHEST: Inspection, palpation and percussion of the chest were unremarkable. Lung auscultation revealed normal breath sounds bilaterally. CARDIAC: PMI is within normal limits. Heart sounds are regular. Normal S1, S2. No gallop or murmur. ABD: Soft, non-tender and not distended. No peritoneal signs on palpation. No organomegaly. Normal bowel sounds. EXT: No cyanosis or clubbing. No edema. SKIN: Intact. No rashes. JOINTS: No evidence of synovitis or acute arthritis. NEURO: Alert and oriented to name, place and person. Cranial nerve examination is unremarkable. No focal motor deficits. Normal speech. Gait is normal. Strength is normal. Vital Signs (last 8hr) Date Time Temp Pulse Resp B/P (MAP) Pulse Ox O2 Delivery O2 Flow Rate FiO2 06/13/24 11:54 86 18 06/13/24 08:00 100 Room Air* 0 21 06/13/24 08:00 97.2 89 17 161/72 100 Room Air 0.0 06/13/24 07:16 99 18 N/A Room Air 21 06/13/24 07:14 99 18 Laboratory: [ ] Laboratory: Test 06/12/24 03:14 Range/Units White Blood Count 9.0 4.8-10.8 K/uL Red Blood Count 3.07 L 4.50-6.20 MIL/uL Hemoglobin 7.2 L 14.0-18.0 g/dL Hematocrit 24.5 L 42-54 % Mean Corpuscular Volume 79.8 79-99 fL Mean Corpuscular Hemoglobin 23.5 L 27.0-33.0 pg Mean Corpuscular Hemoglobin Concent 29.4 L 32.0-36.0 g/dL Red Cell Distribution Width 17.2 H 11.0-15.5 % Platelet Count 304 130-400 K/uL Mean Platelet Volume 9.9 7.5-10.5 fL Nucleated Red Blood Cells 0.0 0.0-0.19 % Sodium Level 139 136-145 mmol/L Potassium Level 3.7 3.5-5.1 mmol/L Chloride Level 106 101-111 mmol/L Carbon Dioxide Level 27 21-32 mmol/L Blood Urea Nitrogen 11 7-18 mg/dL Creatinine 0.7 0.5-1.3 mg/dL Glomerular Filtration Rate Calc 97 >90 mL/min Random Glucose 118 H 70-105 mg/dL Total Calcium 7.8 L 8.5-10.1 mg/dL Magnesium Level 1.80 1.80-2.40 mg/dL Total Bilirubin 0.4 0.2-1.0 mg/dL Aspartate Amino Transf (AST/SGOT) 43 H 10-37 U/L Alanine Aminotransferase (ALT/SGPT) 22 12-78 U/L Alkaline Phosphatase 209 H 50-136 U/L Lactate Dehydrogenase 212 81-234 U/L Total Protein 4.9 L 6.0-8.3 g/dL Albumin 1.9 L 3.5-5.0 g/dL Vitamin B12 Level 4502 H 193-986 pg/mL Current Medications Medications (Trade) Dose Ordered Sig/Kenneth Route PRN Reason Start Time Stop Time Status Last Admin Dose Admin Acetaminophen (TYLenol 325MG TAB) 650 mg Q4H PRN PO PAIN/FEVER 06/09/24 23:00 07/09/24 22:59 06/11/24 09:38 650 MG Albuterol Sulfate (Proventil 0.083% 2.5mg/3ml) 2.5MG Q6H PRN IH SHORTNESS OF BREATH 2/4/25 16:00 07/07/24 15:59 06/13/24 11:54 2.5 MG Amlodipine Besylate (NorvASC 5MG TAB) 5 mg DAILY PO 06/11/24 11:00 07/11/24 10:59 06/13/24 08:03 5 MG Atorvastatin Calcium (LIPItor 40MG) 40 mg HS PO 06/07/24 21:00 07/07/24 20:59 06/12/24 20:15 40 MG Budesonide (Pulmicort 0.5 Mg/2ml) 0.5 mg BIDRESP IH 06/07/24 18:00 07/07/24 17:59 06/13/24 07:14 0.5 MG Docusate Sodium (COLace 100MG CAP) 100 mg BID PO 06/12/24 12:00 07/12/24 11:59 06/13/24 08:03 100 MG Docusate Sodium (COLace 100MG CAP) 100 mg BID PO 06/12/24 21:00 06/12/24 11:51 DC Heparin Sodium/ Dextrose 250 ml @ 0 mls/hr PROTOCOL IV 06/07/24 14:00 06/07/24 13:52 DC Hydralazine HCl (APRESOLine 20MG INJ) 5 mg Q6H PRN IV ADMINISTER FOR SBP > 160 06/09/24 10:30 07/09/24 10:29 Hydromorphone HCl (DiLAUDid 0.5MG INJ) 0.2 mg Q4H PRN IVP SEVERE PAIN (7-10) 06/10/24 12:00 06/15/24 11:59 06/13/24 12:10 0.2 MG Hydroxyzine HCl (ATArax 25MG TAB) 25 mg TID PO 06/12/24 14:00 07/12/24 13:59 06/13/24 08:03 25 MG Iron Sucrose (VenoFER) 100 mg DAILY IV 06/10/24 09:00 06/12/24 09:01 DC 06/12/24 08:32 100 MG Lactulose (Constulose 20gm/ 30ml Udcup) 20 gm BID PRN PO CONSTIPATION 06/12/24 12:00 07/12/24 11:59 06/12/24 12:16 20 GM Lidocaine (Lidoderm Patch 5%) 1 patch DAILY TP 06/11/24 09:00 07/11/24 08:59 06/13/24 08:03 1 PATCH Lisinopril (Prinivil 20mg) 20 mg DAILY PO 06/08/24 09:00 07/08/24 08:59 06/13/24 08:03 20 MG Magnesium Sulfate 50 ml @ 0 mls/hr PROTOCOL IV 06/10/24 09:00 06/10/24 08:52 DC Magnesium Sulfate 50 ml @ 0 mls/hr PROTOCOL PRN IV HYPOMAGNESEMIA 06/07/24 15:30 07/07/24 15:29 06/10/24 05:14 25 MLS/HR Nicotine (Nicoderm) 21 mg DAILY TD 06/13/24 09:00 07/13/24 08:59 Pantoprazole Sodium (PROTonix 40MG TAB) 40 mg DAILY PO 06/12/24 09:00 07/12/24 08:59 06/13/24 08:03 40 MG Pantoprazole Sodium 80 mg/ Sodium Chloride 100 ml @ 10 mls/hr Q10H IVP 06/07/24 14:00 06/11/24 10:55 DC 06/11/24 06:08 10 MLS/HR Potassium Chloride 100 ml @ 50 mls/hr AD PRN IV POTASSIUM PROTOCOL 06/07/24 15:30 07/07/24 15:29 Sodium Chloride 1,000 ml @ 100 mls/hr Q10H IV 06/07/24 15:30 07/07/24 15:29 06/13/24 02:05 100 MLS/HR Diagnostics / Radiology: [COPY/PASTE HERE IF NO REPORTS PLEASE DELETE SECTION] Assessment: Hiatal hernia Gastritis Diverticulosis DWAIN Elevated troponin HTN COPD Plan: Continue GI prophylaxis Advance diet as tolerated Avoid NSAIDs Antireflux measures Monitor H&H and transfuse as needed Call with questions, concerns or change in clinical status Patient to follow-up at clinic post discharge Thank you for this consult NAKUL FALCON Jun 13, 2024 13:23
[2024-06-13 14:06] LABS: BASOPHILS # (AUTO) 0.02 K/uL (0.00-0.20); BASOPHILS % (AUTO) 0.2 % (0.0-5.0); EOSINOPHILS # (AUTO) 0.23 K/uL (0.00-0.70); EOSINOPHILS % (AUTO) 2.8 % (0.0-8.0); HEMATOCRIT 25.1 % (42-54); IMMATURE GRANULOCYTE ABSOLUTE 0.07 K/uL (0-1); LYMPHOCYTES # (AUTO) 0.6 K/uL (1.0-4.8); LYMPHOCYTES % (AUTO) 7.7 % (21.0-51.0); MEAN CORPUSCULAR HEMOGLOBIN 23.2 pg (27.0-33.0); MEAN CORPUSCULAR HGB CONC 29.5 g/dL (32.0-36.0); MEAN CORPUSCULAR VOLUME 78.7 fL (79-99); MONOCYTES # (AUTO) 0.8 K/uL (0.1-1.0); MONOCYTES % (AUTO) 9.7 % (3.0-13.0); NEUTROPHILS # (AUTO) 6.4 K/uL (1.8-7.7); NEUTROPHILS % (AUTO) 78.7 % (40.0-77.0); PLATELET COUNT (AUTO) 234 K/uL (130-400); RED BLOOD CELL COUNT(AUTO) 3.19 MIL/uL (4.50-6.20); RED CELL DISTRIBUTION WIDTH 18.5 % (11.0-15.5); WHITE BLOOD COUNT (AUTO) 8.2 K/uL (4.8-10.8)
[2024-06-13] MEDS ORDERED: FENTanyl CITRate PF 50 MCG/1 ML 2ML VIAL ONE (15:12)
[2024-06-13] MEDS ORDERED: MIDAZOLAM HCL 1 MG/ML 2ML VIAL ONE (15:13)
--- NOTE | 2024-06-13 15:55 | NUR ---
U/S GD LIVER MASS BX TOLERATED PROCEDURE. PERFORMED BY DR Minerva OLIVAREZ. PUNCTURE SITE TO RUQ. X3 SPECIMEN REMOVED AND SENT TO LAB. FLOSEAL INJECT AT END OF PROCEDURE 1535. DRESSING APPLIED. NO BLEEDING NOTED. DRY AND INTACT. MODERATE SEDATION GIVEN AT START OF PROCEDURE. PT ABUSABLE AND DENIES PAIN. REPORT GIVEN TO FRED RODRIGUEZ. PT TRANSPORTED TO [facility] VIA BED.
--- NOTE | 2024-06-13 16:00 | NUR ---
arrived from liver biopsy resting quietly, chest rising and falling, vitals stable
--- NOTE | 2024-06-13 20:59 | CONS ---
HISTORY OF PRESENT ILLNESS: The patient is complaining of right upper quadrant pain. The patient is scheduled for a CT-guided liver mass biopsy. PHYSICAL EXAMINATION: VITAL SIGNS: Stable, afebrile. GENERAL: The patient is alert, no acute distress. HEART: Regular and rhythmic. LUNGS: With diminished breathing sounds at both bases. No crackles. ABDOMEN: Soft. Some degree of hepatomegaly. Bowel sounds present. EXTREMITIES: No pedal edema. No calf tenderness. LABORATORY DATA: Vitamin B12 level 4500. Sodium 139, potassium 3.7, BUN 11, creatinine 0.7, alkaline phosphatase 209. Total bilirubin 0.4. WBC 9, hemoglobin 7.2, platelet count 304. ASSESSMENT: * Hepatic mass, suspicion for malignancy. * Severe anemia. * Lower gastrointestinal bleeding. PLAN: The patient remains stable, scheduled for CT-guided liver mass biopsy. I will follow results. Tumor markers ordered as well. He will continue on IV iron. Continue to monitor with the work. TID: [id number] RECEIPT: [id number]
[2024-06-13] MEDS: HYDROcodone/APAP 5/325 1 TAB TABLET PO ONE (22:11)
[2024-06-14] VITALS (11 sets, daily range): BP systolic 127–160; BP diastolic 57–76; PULSE 80–96; RESP 18–20; TEMP 97.9–99; O2SAT 94–100
[2024-06-14 05:26] LABS: HEMATOCRIT 26.2 % (42-54); MEAN CORPUSCULAR HEMOGLOBIN 23.4 pg (27.0-33.0); MEAN CORPUSCULAR HGB CONC 29.4 g/dL (32.0-36.0); MEAN CORPUSCULAR VOLUME 79.6 fL (79-99); RED BLOOD CELL COUNT(AUTO) 3.29 MIL/uL (4.50-6.20); RED CELL DISTRIBUTION WIDTH 18.7 % (11.0-15.5); WHITE BLOOD COUNT (AUTO) 7.5 K/uL (4.8-10.8)
[2024-06-14 06:04] LABS: ALBUMIN 1.8 g/dL (3.5-5.0); BILIRUBIN,TOTAL 0.6 mg/dL (0.2-1.0); CREATININE 0.7 mg/dL (0.5-1.3); POTASSIUM 3.7 mmol/L (3.5-5.1); TOTAL PROTEIN, SERUM 4.9 g/dL (6.0-8.3)
[2024-06-14] MEDS: amLODIPine 5 MG TAB PO SCH (09:13)
[2024-06-14] MEDS: LISINOPRIL 40 MG TABLET PO SCH (09:13)
--- NOTE | 2024-06-14 10:09 | PN ---
GASTROENTEROLOGY PROGRESS NOTE Date of Visit: Jun 14, 2024 Time of Visit: 10:09 Events / Notes: No acute events overnight. Patient s/p EGD revealing hiatal hernia and gastritis. Colonoscopy revealing hemorrhoids and diverticulosis, colon polyps. Review of Systems: CONSTITUTIONAL: No malaise or change in sensation of wellbeing. ENMT: No rhinorrhea, otorrhea, sinus pain, ear ache. CARDIOVASCULAR: No angina, palpitations, orthopnea or paroxysmal dyspnea. RESPIRATORY: No SOB. GASTROINTESTINAL: No abdominal pain, nausea, vomiting, diarrhea, hematemesis, melena or change in the patient's habitual bowel movements consistency/number. GENITOURINARY: No dysuria, hematuria or change in bladder continence. MUSCULOSKELETAL: No new muscle pain or decrease in muscular strength. No new joint swelling, redness or tenderness. SKIN: No new rash. Physical Exam: GEN: Awake, alert, oriented in person, time and place, and in no acute distress. HEENT: No sinus tenderness. Tympanic membranes were not examined. No rhinorrhea. Oral pharyngeal mucosa is pink, moist and within normal limits. Neck is supple with no cervical lymphadenopathy, thyromegaly or JVD. CHEST: Inspection, palpation and percussion of the chest were unremarkable. Lung auscultation revealed normal breath sounds bilaterally. CARDIAC: PMI is within normal limits. Heart sounds are regular. Normal S1, S2. No gallop or murmur. ABD: Soft, non-tender and not distended. No peritoneal signs on palpation. No organomegaly. Normal bowel sounds. EXT: No cyanosis or clubbing. No edema. SKIN: Intact. No rashes. JOINTS: No evidence of synovitis or acute arthritis. NEURO: Alert and oriented to name, place and person. Cranial nerve examination is unremarkable. No focal motor deficits. Normal speech. Gait is normal. Strength is normal. Vital Signs (last 8hr) Date Time Temp Pulse Resp B/P (MAP) Pulse Ox O2 Delivery O2 Flow Rate FiO2 06/14/24 07:56 98.4 96 20 127/57 100 Nasal Cannula 2.0 06/14/24 06:42 86 18 06/14/24 06:42 86 18 N/A Room Air 21 06/14/24 04:00 98.1 86 20 160/63 94 Room Air Laboratory: [ ] Laboratory: Test 06/14/24 04:59 06/13/24 13:30 Range/Units White Blood Count 7.5 4.8-10.8 K/uL Red Blood Count 3.29 L 4.50-6.20 MIL/uL Hemoglobin 7.7 L 14.0-18.0 g/dL Hematocrit 26.2 L 42-54 % Mean Corpuscular Volume 79.6 79-99 fL Mean Corpuscular Hemoglobin 23.4 L 27.0-33.0 pg Mean Corpuscular Hemoglobin Concent 29.4 L 32.0-36.0 g/dL Red Cell Distribution Width 18.7 H 11.0-15.5 % Platelet Count 168 # 130-400 K/uL Mean Platelet Volume 11.3 H 7.5-10.5 fL Nucleated Red Blood Cells 0.0 0.0-0.19 % Sodium Level 141 136-145 mmol/L Potassium Level 3.7 3.5-5.1 mmol/L Chloride Level 108 101-111 mmol/L Carbon Dioxide Level 23 21-32 mmol/L Blood Urea Nitrogen 11 7-18 mg/dL Creatinine 0.7 0.5-1.3 mg/dL Glomerular Filtration Rate Calc 97 >90 mL/min Random Glucose 85 70-105 mg/dL Total Calcium 8.1 L 8.5-10.1 mg/dL Total Bilirubin 0.6 0.2-1.0 mg/dL Aspartate Amino Transf (AST/SGOT) 52 H 10-37 U/L Alanine Aminotransferase (ALT/SGPT) 23 12-78 U/L Alkaline Phosphatase 204 H 50-136 U/L Total Protein 4.9 L 6.0-8.3 g/dL Albumin 1.8 L 3.5-5.0 g/dL Immature Granulocyte % (Auto) 0.9 0-1 % Neutrophils (%) (Auto) 78.7 H 40.0-77.0 % Lymphocytes (%) (Auto) 7.7 L 21.0-51.0 % Monocytes (%) (Auto) 9.7 3.0-13.0 % Eosinophils (%) (Auto) 2.8 0.0-8.0 % Basophils (%) (Auto) 0.2 0.0-5.0 % Neutrophils # (Auto) 6.4 1.8-7.7 K/uL Lymphocytes # (Auto) 0.6 L 1.0-4.8 K/uL Monocytes # (Auto) 0.8 0.1-1.0 K/uL Eosinophils # (Auto) 0.23 0.00-0.70 K/uL Basophils # (Auto) 0.02 0.00-0.20 K/uL Absolute Immature Granulocyte (auto 0.07 0-1 K/uL Current Medications Medications (Trade) Dose Ordered Sig/Kenneth Route PRN Reason Start Time Stop Time Status Last Admin Dose Admin Acetaminophen (TYLenol 325MG TAB) 650 mg Q4H PRN PO PAIN/FEVER 06/09/24 23:00 07/09/24 22:59 06/11/24 09:38 650 MG Albuterol Sulfate (Proventil 0.083% 2.5mg/3ml) 2.5MG Q6H PRN IH SHORTNESS OF BREATH 06/07/24 16:00 07/07/24 15:59 06/14/24 06:42 2.5 MG Amlodipine Besylate (NorvASC 5MG TAB) 5 mg DAILY PO 06/11/24 11:00 06/14/24 05:05 DC 06/13/24 08:03 5 MG Amlodipine Besylate (NorvASC 5MG TAB) 10 mg DAILY PO 06/14/24 09:00 07/14/24 08:59 06/14/24 09:13 10 MG Atorvastatin Calcium (LIPItor 40MG) 40 mg HS PO 06/07/24 21:00 07/07/24 20:59 06/13/24 20:08 40 MG Budesonide (Pulmicort 0.5 Mg/2ml) 0.5 mg BIDRESP IH 06/07/24 18:00 07/07/24 17:59 06/14/24 06:42 0.5 MG Docusate Sodium (COLace 100MG CAP) 100 mg BID PO 06/12/24 12:00 07/12/24 11:59 06/14/24 09:13 100 MG Docusate Sodium (COLace 100MG CAP) 100 mg BID PO 06/12/24 21:00 06/12/24 11:51 DC Heparin Sodium/ Dextrose 250 ml @ 0 mls/hr PROTOCOL IV 06/07/24 14:00 06/07/24 13:52 DC Hydralazine HCl (APRESOLine 20MG INJ) 5 mg Q6H PRN IV ADMINISTER FOR SBP > 160 06/09/24 10:30 07/09/24 10:29 Hydromorphone HCl (DiLAUDid 0.5MG INJ) 0.2 mg Q4H PRN IVP SEVERE PAIN (7-10) 06/10/24 12:00 06/15/24 11:59 06/14/24 09:14 0.2 MG Hydroxyzine HCl (ATArax 25MG TAB) 25 mg TID PO 06/12/24 14:00 07/12/24 13:59 06/14/24 09:13 25 MG Iron Sucrose (VenoFER) 100 mg DAILY IV 06/10/24 09:00 06/12/24 09:01 DC 06/12/24 08:32 100 MG Lactulose (Constulose 20gm/ 30ml Udcup) 20 gm BID PRN PO CONSTIPATION 06/12/24 12:00 07/12/24 11:59 06/12/24 12:16 20 GM Lidocaine (Lidoderm Patch 5%) 1 patch DAILY TP 06/11/24 09:00 07/11/24 08:59 06/14/24 09:13 1 PATCH Lisinopril (Prinivil 20mg) 20 mg DAILY PO 06/08/24 09:00 06/14/24 05:05 DC 06/13/24 08:03 20 MG Lisinopril (Prinivil 40mg) 40 mg DAILY PO 06/14/24 09:00 07/14/24 08:59 06/14/24 09:13 40 MG Magnesium Sulfate 50 ml @ 0 mls/hr PROTOCOL IV 06/10/24 09:00 06/10/24 08:52 DC Magnesium Sulfate 50 ml @ 0 mls/hr PROTOCOL PRN IV HYPOMAGNESEMIA 06/07/24 15:30 07/07/24 15:29 06/10/24 05:14 25 MLS/HR Nicotine (Nicoderm) 21 mg DAILY TD 06/13/24 09:00 07/13/24 08:59 Pantoprazole Sodium (PROTonix 40MG TAB) 40 mg DAILY PO 06/12/24 09:00 07/12/24 08:59 06/14/24 09:13 40 MG Pantoprazole Sodium 80 mg/ Sodium Chloride 100 ml @ 10 mls/hr Q10H IVP 06/07/24 14:00 06/11/24 10:55 DC 06/11/24 06:08 10 MLS/HR Potassium Chloride 100 ml @ 50 mls/hr AD PRN IV POTASSIUM PROTOCOL 06/07/24 15:30 07/07/24 15:29 Sodium Chloride 1,000 ml @ 100 mls/hr Q10H IV 06/07/24 15:30 07/07/24 15:29 06/13/24 02:05 100 MLS/HR Diagnostics / Radiology: [COPY/PASTE HERE IF NO REPORTS PLEASE DELETE SECTION] Assessment: Hiatal hernia Gastritis Diverticulosis DWAIN Elevated troponin HTN COPD Plan: Continue GI prophylaxis Advance diet as tolerated Avoid NSAIDs Antireflux measures Monitor H&H and transfuse as needed Call with questions, concerns or change in clinical status Patient to follow-up at clinic post discharge Thank you for this consult NAKUL FALCON Jun 14, 2024 10:09
--- NOTE | 2024-06-14 12:34 | PN ---
[facility] PROGRESS NOTE Date of Service: Jun 14, 2024 Time of Service: 12:31 SUBJECTIVE: 06/08 patient seen at bedside, no acute events overnight. CT of the abdomen/pelvis showed hypodensities in the liver consistent with metastatic liver disease. We will order CEA, CA 19-9, AFP and consult Oncology for further recommendations. GI consulted and recommending EGD, we will follow up postp rocedure. Patient transfused 1 unit packed red blood cells, hemoglobin currently stable. Troponins mildly elevated however they have plateaued and are downtrending likely a sign of stress consistent with NSTEMI. Remainder of his labs are relatively unremarkable. 06/09 patient is seen and examined at bedside, no acute events overnight, during my visit the patient is comfortable, alert oriented x3, following commands, he is currently NPO, awaiting EGD. BP 160 6-68, afebrile, saturating normal on room air. Hemoglobin today seven nine, hematocrit 26, platelet count 354. AFB 4.0, carcinoembryonic antigen 612. CA 19-9 pending. Echocardiogram with LVEF 60 65%. We will do CBC q.8 hours with transfusion of 1 unit of PRBC if hemoglobin less than 7. Oncology consultation requested, we will follow input and recommendation. 06/10 patient is seen and examined at bedside, no acute events overnight, tolerating diet at time of my visit. hemodynamically stable, afebrile, saturating normal on room air. Blood pressure better today 149/55, rest of the vital signs are unremarkable. Hemoglobin 8.1, hematocrit 26.8. AFB 4.0, carcinoembryonic antigen 612. CA 19-9 pending. Echocardiogram with LVEF 60 65%. Patient had colonoscopy yesterday, finding of hemorrhoids, diverticulosis of the sigmoid colon and melanosis of the colon, three 5 to 8 mm polyps at the hepatic flexure and in the cecum, removed with a cold snare. Resected. And retrieved. Patient evaluated by oncologist, may need liver biopsy. 06/11 patient is seen and examined at bedside, no acute events overnight, case discussed with the RN. During my visit patient comfortably bed, BP mildly elevated 146/66, afebrile, saturating normal on room air. Hemoglobin stable 7.1, hematocrit 23.7. Denies melena, no hematochezia, no hematemesis. No hematuria. Patient with a tumor marker carcinoembryonic antigen elevated at 612. AFB negative. CA 19-9 pending. Echocardiogram with LVEF 60 65%. Patient had colonoscopy yesterday, finding of hemorrhoids, diverticulosis of the sigmoid colon and melanosis of the colon, three 5 to 8 mm polyps at the hepatic flexure and in the cecum, removed with a cold snare. Resected. And retrieved. Patient may benefit from liver biopsy. Follow GI input and recommendations. Pending oncology input and recommendation. 06/12 seen at bedside, no acute events overnight. He has been evaluated by Oncology who recommends CT-guided needle biopsy of the liver, we will be done tomorrow. Once procedure has been completed we will determine if patient is good candidate for discharge home to follow up outpatient for pathology results. Hemoglobin stable 06/13 patient seen at bedside, no acute events overnight. Patient evaluated by Physical therapy who recommends transitioned to detention for rehab, case management to assist. Today he is pending a CT-guided biopsy of the liver. He has been afebrile, hemodynamically stable saturating well on room air. Hemoglobin improved from 7.1 up to 7.2, remainder of his labs are relatively unremarkable. 06/14 patient seen at bedside, no acute events overnight. CT guided biopsy successfully done yesterday. Patient now pending SNF placement for rehab. Will follow up with case management REVIEW OF SYSTEMS 12 point review of systems negative unless noted in HPI PHYSICAL EXAM GENERAL APPEARANCE: The patient is awake, alert, and oriented, in no acute cardiopulmonary distress. Patient appears pain NEUROLOGICAL: Cranial nerves II-XII grossly intact. Motor is 5/5 in bilateral upper and lower extremities proximal to distal. No sensory deficits. HEENT: Face is symmetric. Pupils are equal and reactive. Extraocular movements are intact. NECK: Supple. No JVD. No thyromegaly. No submental, submandibular, pre- /postauricular, occipital or supraclavicular lymphadenopathy. CHEST: Normal chest expansion. No Telemetry. LUNGS: Absence of any rales, rhonchi or any wheezing. CARDIOVASCULAR: Regular. S1 and S2 normal. No appreciable rubs, murmurs or gallops. ABDOMEN: Soft, nontender, and nondistended. There is no rebound, voluntary guarding, or rigidity. : Deferred. No Palomares. EXTREMITIES: Non-edematous and not cyanotic. No clubbing. Good capillary refill. SKIN: No skin breakdown. Vital Signs (last 8hr) Date Time Temp Pulse Resp B/P (MAP) Pulse Ox O2 Delivery O2 Flow Rate FiO2 06/14/24 11:14 99.0 94 20 148/57 97 Room Air 06/14/24 08:00 100 Room Air* 0 21 06/14/24 07:56 98.4 96 20 127/57 100 Nasal Cannula 2.0 06/14/24 06:42 86 18 06/14/24 06:42 86 18 N/A Room Air 21 LABS: Laboratory: Test 06/14/24 04:59 06/13/24 13:30 Range/Units White Blood Count 7.5 4.8-10.8 K/uL Red Blood Count 3.29 L 4.50-6.20 MIL/uL Hemoglobin 7.7 L 14.0-18.0 g/dL Hematocrit 26.2 L 42-54 % Mean Corpuscular Volume 79.6 79-99 fL Mean Corpuscular Hemoglobin 23.4 L 27.0-33.0 pg Mean Corpuscular Hemoglobin Concent 29.4 L 32.0-36.0 g/dL Red Cell Distribution Width 18.7 H 11.0-15.5 % Platelet Count 168 # 130-400 K/uL Mean Platelet Volume 11.3 H 7.5-10.5 fL Nucleated Red Blood Cells 0.0 0.0-0.19 % Sodium Level 141 136-145 mmol/L Potassium Level 3.7 3.5-5.1 mmol/L Chloride Level 108 101-111 mmol/L Carbon Dioxide Level 23 21-32 mmol/L Blood Urea Nitrogen 11 7-18 mg/dL Creatinine 0.7 0.5-1.3 mg/dL Glomerular Filtration Rate Calc 97 >90 mL/min Random Glucose 85 70-105 mg/dL Total Calcium 8.1 L 8.5-10.1 mg/dL Total Bilirubin 0.6 0.2-1.0 mg/dL Aspartate Amino Transf (AST/SGOT) 52 H 10-37 U/L Alanine Aminotransferase (ALT/SGPT) 23 12-78 U/L Alkaline Phosphatase 204 H 50-136 U/L Total Protein 4.9 L 6.0-8.3 g/dL Albumin 1.8 L 3.5-5.0 g/dL Immature Granulocyte % (Auto) 0.9 0-1 % Neutrophils (%) (Auto) 78.7 H 40.0-77.0 % Lymphocytes (%) (Auto) 7.7 L 21.0-51.0 % Monocytes (%) (Auto) 9.7 3.0-13.0 % Eosinophils (%) (Auto) 2.8 0.0-8.0 % Basophils (%) (Auto) 0.2 0.0-5.0 % Neutrophils # (Auto) 6.4 1.8-7.7 K/uL Lymphocytes # (Auto) 0.6 L 1.0-4.8 K/uL Monocytes # (Auto) 0.8 0.1-1.0 K/uL Eosinophils # (Auto) 0.23 0.00-0.70 K/uL Basophils # (Auto) 0.02 0.00-0.20 K/uL Absolute Immature Granulocyte (auto 0.07 0-1 K/uL Current Medications Medications (Trade) Dose Ordered Sig/Kenneth Route PRN Reason Start Time Stop Time Status Last Admin Dose Admin Acetaminophen (TYLenol 325MG TAB) 650 mg Q4H PRN PO PAIN/FEVER 06/09/24 23:00 07/09/24 22:59 06/11/24 09:38 650 MG Albuterol Sulfate (Proventil 0.083% 2.5mg/3ml) 2.5MG Q6H PRN IH SHORTNESS OF BREATH 06/07/24 16:00 07/07/24 15:59 06/14/24 06:42 2.5 MG Amlodipine Besylate (NorvASC 5MG TAB) 5 mg DAILY PO 06/11/24 11:00 06/14/24 05:05 DC 06/13/24 08:03 5 MG Amlodipine Besylate (NorvASC 5MG TAB) 10 mg DAILY PO 06/14/24 09:00 07/14/24 08:59 06/14/24 09:13 10 MG Atorvastatin Calcium (LIPItor 40MG) 40 mg HS PO 06/07/24 21:00 07/07/24 20:59 06/13/24 20:08 40 MG Budesonide (Pulmicort 0.5 Mg/2ml) 0.5 mg BIDRESP IH 06/07/24 18:00 07/07/24 17:59 06/14/24 06:42 0.5 MG Docusate Sodium (COLace 100MG CAP) 100 mg BID PO 06/12/24 12:00 07/12/24 11:59 06/14/24 09:13 100 MG Docusate Sodium (COLace 100MG CAP) 100 mg BID PO 06/12/24 21:00 06/12/24 11:51 DC Heparin Sodium/ Dextrose 250 ml @ 0 mls/hr PROTOCOL IV 06/07/24 14:00 06/07/24 13:52 DC Hydralazine HCl (APRESOLine 20MG INJ) 5 mg Q6H PRN IV ADMINISTER FOR SBP > 160 06/09/24 10:30 07/09/24 10:29 Hydromorphone HCl (DiLAUDid 0.5MG INJ) 0.2 mg Q4H PRN IVP SEVERE PAIN (7-10) 06/10/24 12:00 06/15/24 11:59 06/14/24 09:14 0.2 MG Hydroxyzine HCl (ATArax 25MG TAB) 25 mg TID PO 06/12/24 14:00 07/12/24 13:59 06/14/24 09:13 25 MG Iron Sucrose (VenoFER) 100 mg DAILY IV 06/10/24 09:00 06/12/24 09:01 DC 06/12/24 08:32 100 MG Lactulose (Constulose 20gm/ 30ml Udcup) 20 gm BID PRN PO CONSTIPATION 06/12/24 12:00 07/12/24 11:59 06/12/24 12:16 20 GM Lidocaine (Lidoderm Patch 5%) 1 patch DAILY TP 06/11/24 09:00 07/11/24 08:59 06/14/24 09:13 1 PATCH Lisinopril (Prinivil 20mg) 20 mg DAILY PO 06/08/24 09:00 06/14/24 05:05 DC 06/13/24 08:03 20 MG Lisinopril (Prinivil 40mg) 40 mg DAILY PO 06/14/24 09:00 07/14/24 08:59 06/14/24 09:13 40 MG Magnesium Sulfate 50 ml @ 0 mls/hr PROTOCOL IV 06/10/24 09:00 06/10/24 08:52 DC Magnesium Sulfate 50 ml @ 0 mls/hr PROTOCOL PRN IV HYPOMAGNESEMIA 06/07/24 15:30 07/07/24 15:29 06/10/24 05:14 25 MLS/HR Nicotine (Nicoderm) 21 mg DAILY TD 06/13/24 09:00 07/13/24 08:59 Pantoprazole Sodium (PROTonix 40MG TAB) 40 mg DAILY PO 06/12/24 09:00 07/12/24 08:59 06/14/24 09:13 40 MG Pantoprazole Sodium 80 mg/ Sodium Chloride 100 ml @ 10 mls/hr Q10H IVP 06/07/24 14:00 06/11/24 10:55 DC 06/11/24 06:08 10 MLS/HR Potassium Chloride 100 ml @ 50 mls/hr AD PRN IV POTASSIUM PROTOCOL 06/07/24 15:30 07/07/24 15:29 Sodium Chloride 1,000 ml @ 100 mls/hr Q10H IV 06/07/24 15:30 07/07/24 15:29 06/13/24 02:05 100 MLS/HR DIAGNOSTICS / RADIOLOGY: [ ] ASSESSMENT: Hypodensities in the liver consistent with metastatic disease Melena with concern for GI bleed POA Acute symptomatic anemia Microcytic anemia Troponin elevation likely in setting of type 2 IA from anemia Hypertension Hyperlipidemia History of COPD History of gastric ulcer History of constipation PLAN: - patient remains admitted to the medical floor - continue to follow CBC transfuse as needed - Continue nicotine patch - Continue hydroxyzine 25mg TID for anxiety/depression - Continue lactulose BID, titrate to 2 BM per day - Continue lisinopril 20mg q24h - continue to follow GI input and recommendations. Patient may benefit from liver biopsy, pending oncology input and recommendations. - continue to follow tumor marker - Trend H/H - GI and DVT prophylaxis - Case management to assist with SNF placement fo rrehab Disposition: Pending SNF placement DEBBIE HAMILTON MD Jun 14, 2024 12:34
--- NOTE | 2024-06-14 16:48 | HMCIMG ---
US BIOPSY LIVER IR, US GUIDANCE [facility] IR INDICATION: LIVER MASS PHOTO TECH: Dr. Harris. PROCEDURE DETAILS: Informed consent was obtained after discussion of the risks, benefits and alternatives to this treatment. Sterile Prep: All elements of maximal sterile barrier technique, including hand hygiene and cutaneous antisepsis were used. A time-out was performed prior to the procedure. Anesthesia type: Moderate sedation and local anesthetic. Contrast: None Fluoroscopy time: None TECHNIQUE: Imaging guidance for access: Ultrasound with permanent image storage Intraprocedural or immediate post-procedural complications: None The right upper quadrant was prepped and draped in a sterile fashion. 1% lidocaine was used for local anesthesia. Ultrasound was used to localize an appropriate entry site and images were archived. Using direct ultrasound guidance, a coaxial needle was advanced into the hypoechoic mass in the right hepatic lobe and 3 18-gauge core biopsies were obtained. Gelfoam sludge was administered through the coaxial needle. All the needles were removed and hemostasis was achieved with manual compression. Sterile dressing was applied. The patient tolerated the procedure well. No immediate completion. Completion ultrasound was performed. FINDINGS: Ultrasound demonstrated ill-defined hypoechoic mass in the right hepatic lobe. Completion ultrasound demonstrated no evidence of hematoma postbiopsy. IMPRESSION: Uncomplicated biopsy of the hypoechoic mass in the right hepatic lobe using ultrasound guidance. Specimen sent for analysis.
--- NOTE | 2024-06-14 16:48 | HMCIMG ---
US BIOPSY LIVER IR, US GUIDANCE [facility] IR INDICATION: LIVER MASS OPTO MECHANICAL TECHNICIAN: Dr. Harris. PROCEDURE DETAILS: Informed consent was obtained after discussion of the risks, benefits and alternatives to this treatment. Sterile Prep: All elements of maximal sterile barrier technique, including hand hygiene and cutaneous antisepsis were used. A time-out was performed prior to the procedure. Anesthesia type: Moderate sedation and local anesthetic. Contrast: None Fluoroscopy time: None TECHNIQUE: Imaging guidance for access: Ultrasound with permanent image storage Intraprocedural or immediate post-procedural complications: None The right upper quadrant was prepped and draped in a sterile fashion. 1% lidocaine was used for local anesthesia. Ultrasound was used to localize an appropriate entry site and images were archived. Using direct ultrasound guidance, a coaxial needle was advanced into the hypoechoic mass in the right hepatic lobe and 3 18-gauge core biopsies were obtained. Gelfoam sludge was administered through the coaxial needle. All the needles were removed and hemostasis was achieved with manual compression. Sterile dressing was applied. The patient tolerated the procedure well. No immediate completion. Completion ultrasound was performed. FINDINGS: Ultrasound demonstrated ill-defined hypoechoic mass in the right hepatic lobe. Completion ultrasound demonstrated no evidence of hematoma postbiopsy. IMPRESSION: Uncomplicated biopsy of the hypoechoic mass in the right hepatic lobe using ultrasound guidance. Specimen sent for analysis.
--- NOTE | 2024-06-14 18:09 | PN ---
Will follow peripherally, please call if needed Vitals/Labs Vital Signs Date Time Temp Pulse Resp B/P (MAP) Pulse Ox O2 Delivery O2 Flow Rate FiO2 06/14/24 16:28 98.8 96 20 138/58 98 Room Air 06/14/24 08:00 0 21 Laboratory Tests 06/14/24 04:59 Medications Current Medications Heparin Sodium/ Dextrose 250 ml @ 0 mls/hr PROTOCOL IV; Start 06/07/24 at 14:00; Stop 06/07/24 at 13:52; Status DC Aspirin 325 mg ONCE ONCE PO Last administered on 06/07/24at 13:49; Start 06/07/24 at 14:00; Stop 06/07/24 at 14:01; Status DC Pantoprazole Sodium 80 mg/ Sodium Chloride 100 ml @ 10 mls/hr Q10H IVP Last administered on 06/11/24at 06:08; Start 06/07/24 at 14:00; Stop 06/11/24 at 10:55; Status DC Pantoprazole Sodium 40 mg ONCE ONCE IVP Last administered on 06/07/24at 14:18; Start 06/07/24 at 14:00; Stop 06/07/24 at 14:01; Status DC Sodium Chloride 1,000 ml @ 100 mls/hr Q10H IV Last administered on 06/13/24at 02:05; Start 06/07/24 at 15:30; Stop 07/07/24 at 15:29 Potassium Chloride 100 ml @ 50 mls/hr AD PRN IV; Start 06/07/24 at 15:30; Stop 07/07/24 at 15:29 Magnesium Sulfate 50 ml @ 0 mls/hr PROTOCOL PRN IV Last administered on 06/10/24at 05:14; Start 06/07/24 at 15:30; Stop 07/07/24 at 15:29 Atorvastatin Calcium 40 mg HS PO Last administered on 06/13/24at 20:08; Start 06/07/24 at 21:00; Stop 07/07/24 at 20:59 Albuterol Sulfate 2.5MG Q6H PRN IH Last administered on 06/14/24at 06:42; Start 06/07/24 at 16:00; Stop 07/07/24 at 15:59 Budesonide 0.5 mg BIDRESP IH Last administered on 06/14/24at 06:42; Start 06/07/24 at 18:00; Stop 07/07/24 at 17:59 Lisinopril 20 mg DAILY PO Last administered on 06/13/24at 08:03; Start 06/08/24 at 09:00; Stop 06/14/24 at 05:05; Status DC Pantoprazole Sodium 40 mg STK-MED ONCE .ROUTE; Start 06/08/24 at 08:14; Stop 06/08/24 at 08:14; Status DC Acetaminophen 650 mg ONCE ONCE PO Last administered on 06/08/24at 10:26; Start 06/08/24 at 10:30; Stop 06/08/24 at 10:31; Status DC Hydralazine HCl 5 mg Q6H PRN IV; Start 06/09/24 at 10:30; Stop 07/09/24 at 10:29 Propofol 200 mg STK-MED ONCE IV; Start 06/09/24 at 13:46; Stop 06/09/24 at 13:47; Status DC Phenylephrine HCl 10 mg STK-MED ONCE IV; Start 06/09/24 at 13:47; Stop 06/09/24 at 13:47; Status DC Lidocaine HCl 100 mg STK-MED ONCE .ROUTE; Start 06/09/24 at 13:47; Stop 06/09/24 at 13:47; Status DC Polyethylene Glycol/ Electrolytes 4,000 ml ONCE ONCE PO Last administered on 06/09/24at 18:39; Start 06/09/24 at 15:30; Stop 06/09/24 at 15:31; Status DC Acetaminophen 650 mg Q4H PRN PO Last administered on 06/11/24at 09:38; Start 06/09/24 at 23:00; Stop 07/09/24 at 22:59 Propofol 200 mg STK-MED ONCE IV; Start 06/10/24 at 07:33; Stop 06/10/24 at 07:33; Status DC Potassium Chloride 100 ml @ 50 mls/hr ONCE ONCE IV Last administered on 06/10/24at 09:38; Start 06/10/24 at 09:00; Stop 06/10/24 at 10:59; Status DC Magnesium Sulfate 50 ml @ 0 mls/hr PROTOCOL IV; Start 06/10/24 at 09:00; Stop 06/10/24 at 08:52; Status DC Iron Sucrose 100 mg DAILY IV Last administered on 06/12/24at 08:32; Start 06/10/24 at 09:00; Stop 06/12/24 at 09:01; Status DC Hydromorphone HCl 0.2 mg Q4H PRN IVP Last administered on 06/14/24at 13:36; Start 06/10/24 at 12:00; Stop 06/15/24 at 11:59 Lidocaine 1 patch DAILY TP Last administered on 06/14/24at 09:13; Start 06/11/24 at 09:00; Stop 07/11/24 at 08:59 Amlodipine Besylate 5 mg DAILY PO Last administered on 06/13/24at 08:03; Start 06/11/24 at 11:00; Stop 06/14/24 at 05:05; Status DC Pantoprazole Sodium 40 mg DAILY PO Last administered on 06/14/24at 09:13; Start 06/12/24 at 09:00; Stop 07/12/24 at 08:59 Nicotine 21 mg DAILY TD; Start 06/13/24 at 09:00; Stop 07/13/24 at 08:59 Hydroxyzine HCl 25 mg TID PO Last administered on 06/14/24at 13:36; Start 06/12/24 at 14:00; Stop 07/12/24 at 13:59 Lactulose 20 gm BID PRN PO Last administered on 06/12/24at 12:16; Start 06/12/24 at 12:00; Stop 07/12/24 at 11:59 Docusate Sodium 100 mg BID PO; Start 06/12/24 at 21:00; Stop 06/12/24 at 11:51; Status DC Docusate Sodium 100 mg BID PO Last administered on 06/14/24at 09:13; Start 06/12/24 at 12:00; Stop 07/12/24 at 11:59 Fentanyl Citrate 100 mcg STK-MED ONCE .ROUTE; Start 06/13/24 at 15:12; Stop 06/13/24 at 15:13; Status DC Midazolam HCl 2 mg STK-MED ONCE .ROUTE; Start 06/13/24 at 15:13; Stop 06/13/24 at 15:13; Status DC Acetaminophen/ Hydrocodone Bitart 1 tab ONCE ONCE PO Last administered on 06/13/24at 22:11; Start 06/13/24 at 22:00; Stop 06/13/24 at 22:01; Status DC Amlodipine Besylate 10 mg DAILY PO Last administered on 06/14/24at 09:13; Start 06/14/24 at 09:00; Stop 07/14/24 at 08:59 Lisinopril 40 mg DAILY PO Last administered on 06/14/24at 09:13; Start 06/14/24 at 09:00; Stop 07/14/24 at 08:59 FELIPE JOHNSON MD Jun 14, 2024 18:09
[2024-06-15] VITALS (18 sets, daily range): BP systolic 111–162; BP diastolic 54–79; PULSE 76–105; RESP 17–20; TEMP 97.8–98.6; O2SAT 94–96
--- NOTE | 2024-06-15 14:00 | PN ---
[facility] PROGRESS NOTE Date of Service: Jun 15, 2024 Time of Service: 13:54 SUBJECTIVE: 06/08 patient seen at bedside, no acute events overnight. CT of the abdomen/pelvis showed hypodensities in the liver consistent with metastatic liver disease. We will order CEA, CA 19-9, AFP and consult Oncology for further recommendations. GI consulted and recommending EGD, we will follow up postp rocedure. Patient transfused 1 unit packed red blood cells, hemoglobin currently stable. Troponins mildly elevated however they have plateaued and are downtrending likely a sign of stress consistent with NSTEMI. Remainder of his labs are relatively unremarkable. 06/09 patient is seen and examined at bedside, no acute events overnight, during my visit the patient is comfortable, alert oriented x3, following commands, he is currently NPO, awaiting EGD. BP 160 6-68, afebrile, saturating normal on room air. Hemoglobin today seven nine, hematocrit 26, platelet count 354. AFB 4.0, carcinoembryonic antigen 612. CA 19-9 pending. Echocardiogram with LVEF 60 65%. We will do CBC q.8 hours with transfusion of 1 unit of PRBC if hemoglobin less than 7. Oncology consultation requested, we will follow input and recommendation. 06/10 patient is seen and examined at bedside, no acute events overnight, tolerating diet at time of my visit. hemodynamically stable, afebrile, saturating normal on room air. Blood pressure better today 149/55, rest of the vital signs are unremarkable. Hemoglobin 8.1, hematocrit 26.8. AFB 4.0, carcinoembryonic antigen 612. CA 19-9 pending. Echocardiogram with LVEF 60 65%. Patient had colonoscopy yesterday, finding of hemorrhoids, diverticulosis of the sigmoid colon and melanosis of the colon, three 5 to 8 mm polyps at the hepatic flexure and in the cecum, removed with a cold snare. Resected. And retrieved. Patient evaluated by oncologist, may need liver biopsy. 06/11 patient is seen and examined at bedside, no acute events overnight, case discussed with the RN. During my visit patient comfortably bed, BP mildly elevated 146/66, afebrile, saturating normal on room air. Hemoglobin stable 7.1, hematocrit 23.7. Denies melena, no hematochezia, no hematemesis. No hematuria. Patient with a tumor marker carcinoembryonic antigen elevated at 612. AFB negative. CA 19-9 pending. Echocardiogram with LVEF 60 65%. Patient had colonoscopy yesterday, finding of hemorrhoids, diverticulosis of the sigmoid colon and melanosis of the colon, three 5 to 8 mm polyps at the hepatic flexure and in the cecum, removed with a cold snare. Resected. And retrieved. Patient may benefit from liver biopsy. Follow GI input and recommendations. Pending oncology input and recommendation. 06/12 seen at bedside, no acute events overnight. He has been evaluated by Oncology who recommends CT-guided needle biopsy of the liver, we will be done tomorrow. Once procedure has been completed we will determine if patient is good candidate for discharge home to follow up outpatient for pathology results. Hemoglobin stable 06/13 patient seen at bedside, no acute events overnight. Patient evaluated by Physical therapy who recommends transitioned to long-term for rehab, case management to assist. Today he is pending a CT-guided biopsy of the liver. He has been afebrile, hemodynamically stable saturating well on room air. Hemoglobin improved from 7.1 up to 7.2, remainder of his labs are relatively unremarkable. 06/14 patient seen at bedside, no acute events overnight. CT guided biopsy successfully done yesterday. Patient now pending SNF placement for rehab. Will follow up with case management 06/15 patient seen at bedside, no acute events overnight. Patient pending SNF placement, will follow up with PCP REVIEW OF SYSTEMS 12 point review of systems negative unless noted in HPI PHYSICAL EXAM GENERAL APPEARANCE: The patient is awake, alert, and oriented, in no acute cardiopulmonary distress. Patient appears pain NEUROLOGICAL: Cranial nerves II-XII grossly intact. Motor is 5/5 in bilateral upper and lower extremities proximal to distal. No sensory deficits. HEENT: Face is symmetric. Pupils are equal and reactive. Extraocular movements are intact. NECK: Supple. No JVD. No thyromegaly. No submental, submandibular, pre- /postauricular, occipital or supraclavicular lymphadenopathy. CHEST: Normal chest expansion. No Telemetry. LUNGS: Absence of any rales, rhonchi or any wheezing. CARDIOVASCULAR: Regular. S1 and S2 normal. No appreciable rubs, murmurs or gallops. ABDOMEN: Soft, nontender, and nondistended. There is no rebound, voluntary guarding, or rigidity. : Deferred. No Palomares. EXTREMITIES: Non-edematous and not cyanotic. No clubbing. Good capillary refill. SKIN: No skin breakdown. Vital Signs (last 8hr) Date Time Temp Pulse Resp B/P (MAP) Pulse Ox O2 Delivery O2 Flow Rate FiO2 06/15/24 12:00 98.1 85 17 131/55 94 Room Air 0.0 06/15/24 11:07 82 18 06/15/24 08:23 96 Room Air* 0 21 06/15/24 08:00 98.1 105 19 150/79 96 Room Air 0.0 06/15/24 06:34 79 18 N/A Room Air 21 06/15/24 06:33 79 18 LABS: Laboratory: Test 06/14/24 04:59 Range/Units White Blood Count 7.5 4.8-10.8 K/uL Red Blood Count 3.29 L 4.50-6.20 MIL/uL Hemoglobin 7.7 L 14.0-18.0 g/dL Hematocrit 26.2 L 42-54 % Mean Corpuscular Volume 79.6 79-99 fL Mean Corpuscular Hemoglobin 23.4 L 27.0-33.0 pg Mean Corpuscular Hemoglobin Concent 29.4 L 32.0-36.0 g/dL Red Cell Distribution Width 18.7 H 11.0-15.5 % Platelet Count 168 # 130-400 K/uL Mean Platelet Volume 11.3 H 7.5-10.5 fL Nucleated Red Blood Cells 0.0 0.0-0.19 % Sodium Level 141 136-145 mmol/L Potassium Level 3.7 3.5-5.1 mmol/L Chloride Level 108 101-111 mmol/L Carbon Dioxide Level 23 21-32 mmol/L Blood Urea Nitrogen 11 7-18 mg/dL Creatinine 0.7 0.5-1.3 mg/dL Glomerular Filtration Rate Calc 97 >90 mL/min Random Glucose 85 70-105 mg/dL Total Calcium 8.1 L 8.5-10.1 mg/dL Total Bilirubin 0.6 0.2-1.0 mg/dL Aspartate Amino Transf (AST/SGOT) 52 H 10-37 U/L Alanine Aminotransferase (ALT/SGPT) 23 12-78 U/L Alkaline Phosphatase 204 H 50-136 U/L Total Protein 4.9 L 6.0-8.3 g/dL Albumin 1.8 L 3.5-5.0 g/dL Current Medications Medications (Trade) Dose Ordered Sig/Kenneth Route PRN Reason Start Time Stop Time Status Last Admin Dose Admin Acetaminophen (TYLenol 325MG TAB) 650 mg Q4H PRN PO PAIN/FEVER 06/09/24 23:00 07/09/24 22:59 06/11/24 09:38 650 MG Albuterol Sulfate (Proventil 0.083% 2.5mg/3ml) 2.5MG Q6H PRN IH SHORTNESS OF BREATH 06/07/24 16:00 07/07/24 15:59 06/15/24 11:07 2.5 MG Amlodipine Besylate (NorvASC 5MG TAB) 5 mg DAILY PO 06/11/24 11:00 06/14/24 05:05 DC 06/13/24 08:03 5 MG Amlodipine Besylate (NorvASC 5MG TAB) 10 mg DAILY PO 06/14/24 09:00 07/14/24 08:59 06/15/24 08:13 10 MG Atorvastatin Calcium (LIPItor 40MG) 40 mg HS PO 06/07/24 21:00 07/07/24 20:59 06/14/24 20:26 40 MG Budesonide (Pulmicort 0.5 Mg/2ml) 0.5 mg BIDRESP IH 06/07/24 18:00 07/07/24 17:59 06/15/24 06:31 0.5 MG Docusate Sodium (COLace 100MG CAP) 100 mg BID PO 06/12/24 12:00 07/12/24 11:59 06/15/24 08:13 100 MG Docusate Sodium (COLace 100MG CAP) 100 mg BID PO 06/12/24 21:00 06/12/24 11:51 DC Heparin Sodium/ Dextrose 250 ml @ 0 mls/hr PROTOCOL IV 06/07/24 14:00 06/07/24 13:52 DC Hydralazine HCl (APRESOLine 20MG INJ) 5 mg Q6H PRN IV ADMINISTER FOR SBP > 160 06/09/24 10:30 07/09/24 10:29 Hydromorphone HCl (DiLAUDid 0.5MG INJ) 0.2 mg Q4H PRN IVP SEVERE PAIN (7-10) 06/10/24 12:00 06/15/24 11:59 DC 06/15/24 10:33 0.2 MG Hydroxyzine HCl (ATArax 25MG TAB) 25 mg TID PO 06/12/24 14:00 07/12/24 13:59 06/15/24 08:12 25 MG Iron Sucrose (VenoFER) 100 mg DAILY IV 06/10/24 09:00 06/12/24 09:01 DC 06/12/24 08:32 100 MG Lactulose (Constulose 20gm/ 30ml Udcup) 20 gm BID PRN PO CONSTIPATION 06/12/24 12:00 07/12/24 11:59 06/15/24 08:12 20 GM Lidocaine (Lidoderm Patch 5%) 1 patch DAILY TP 06/11/24 09:00 07/11/24 08:59 06/14/24 09:13 1 PATCH Lisinopril (Prinivil 20mg) 20 mg DAILY PO 06/08/24 09:00 06/14/24 05:05 DC 06/13/24 08:03 20 MG Lisinopril (Prinivil 40mg) 40 mg DAILY PO 06/14/24 09:00 07/14/24 08:59 06/15/24 08:14 40 MG Magnesium Sulfate 50 ml @ 0 mls/hr PROTOCOL IV 06/10/24 09:00 06/10/24 08:52 DC Magnesium Sulfate 50 ml @ 0 mls/hr PROTOCOL PRN IV HYPOMAGNESEMIA 06/07/24 15:30 07/07/24 15:29 06/15/24 08:15 25 MLS/HR Nicotine (Nicoderm) 21 mg DAILY TD 06/13/24 09:00 07/13/24 08:59 Pantoprazole Sodium (PROTonix 40MG TAB) 40 mg DAILY PO 06/12/24 09:00 07/12/24 08:59 06/15/24 08:13 40 MG Pantoprazole Sodium 80 mg/ Sodium Chloride 100 ml @ 10 mls/hr Q10H IVP 06/07/24 14:00 06/11/24 10:55 DC 06/11/24 06:08 10 MLS/HR Potassium Chloride 100 ml @ 50 mls/hr AD PRN IV POTASSIUM PROTOCOL 06/07/24 15:30 07/07/24 15:29 Sodium Chloride 1,000 ml @ 100 mls/hr Q10H IV 06/07/24 15:30 07/07/24 15:29 06/13/24 02:05 100 MLS/HR DIAGNOSTICS / RADIOLOGY: [ ] ASSESSMENT: Hypodensities in the liver consistent with metastatic disease Melena with concern for GI bleed POA Acute symptomatic anemia Microcytic anemia Troponin elevation likely in setting of type 2 OK from anemia Hypertension Hyperlipidemia History of COPD History of gastric ulcer History of constipation PLAN: - patient remains admitted to the medical floor - continue to follow CBC transfuse as needed - Continue nicotine patch - Continue hydroxyzine 25mg TID for anxiety/depression - Continue lactulose BID, titrate to 2 BM per day - Continue lisinopril 20mg q24h - continue to follow GI input and recommendations. Patient may benefit from liver biopsy, pending oncology input and recommendations. - continue to follow tumor marker - Trend H/H - GI and DVT prophylaxis - Case management to assist with SNF placement fo rrehab Disposition: Pending SNF placement DEBBIE HAMILTON MD Jun 15, 2024 14:00
--- NOTE | 2024-06-15 14:04 | PN ---
GASTROENTEROLOGY PROGRESS NOTE Date of Visit: Jun 15, 2024 Time of Visit: 14:04 Events / Notes: No acute events overnight. Patient s/p EGD revealing hiatal hernia and gastritis. Colonoscopy revealing hemorrhoids and diverticulosis, colon polyps. Review of Systems: CONSTITUTIONAL: No malaise or change in sensation of wellbeing. ENMT: No rhinorrhea, otorrhea, sinus pain, ear ache. CARDIOVASCULAR: No angina, palpitations, orthopnea or paroxysmal dyspnea. RESPIRATORY: No SOB. GASTROINTESTINAL: No abdominal pain, nausea, vomiting, diarrhea, hematemesis, melena or change in the patient's habitual bowel movements consistency/number. GENITOURINARY: No dysuria, hematuria or change in bladder continence. MUSCULOSKELETAL: No new muscle pain or decrease in muscular strength. No new joint swelling, redness or tenderness. SKIN: No new rash. Physical Exam: GEN: Awake, alert, oriented in person, time and place, and in no acute distress. HEENT: No sinus tenderness. Tympanic membranes were not examined. No rhinorrhea. Oral pharyngeal mucosa is pink, moist and within normal limits. Neck is supple with no cervical lymphadenopathy, thyromegaly or JVD. CHEST: Inspection, palpation and percussion of the chest were unremarkable. Lung auscultation revealed normal breath sounds bilaterally. CARDIAC: PMI is within normal limits. Heart sounds are regular. Normal S1, S2. No gallop or murmur. ABD: Soft, non-tender and not distended. No peritoneal signs on palpation. No organomegaly. Normal bowel sounds. EXT: No cyanosis or clubbing. No edema. SKIN: Intact. No rashes. JOINTS: No evidence of synovitis or acute arthritis. NEURO: Alert and oriented to name, place and person. Cranial nerve examination is unremarkable. No focal motor deficits. Normal speech. Gait is normal. Strength is normal. Vital Signs (last 8hr) Date Time Temp Pulse Resp B/P (MAP) Pulse Ox O2 Delivery O2 Flow Rate FiO2 06/15/24 12:00 98.1 85 17 131/55 94 Room Air 0.0 06/15/24 11:07 82 18 06/15/24 08:23 96 Room Air* 0 21 06/15/24 08:00 98.1 105 19 150/79 96 Room Air 0.0 06/15/24 06:34 79 18 N/A Room Air 21 06/15/24 06:33 79 18 Laboratory: [ ] Laboratory: Test 06/14/24 04:59 Range/Units White Blood Count 7.5 4.8-10.8 K/uL Red Blood Count 3.29 L 4.50-6.20 MIL/uL Hemoglobin 7.7 L 14.0-18.0 g/dL Hematocrit 26.2 L 42-54 % Mean Corpuscular Volume 79.6 79-99 fL Mean Corpuscular Hemoglobin 23.4 L 27.0-33.0 pg Mean Corpuscular Hemoglobin Concent 29.4 L 32.0-36.0 g/dL Red Cell Distribution Width 18.7 H 11.0-15.5 % Platelet Count 168 # 130-400 K/uL Mean Platelet Volume 11.3 H 7.5-10.5 fL Nucleated Red Blood Cells 0.0 0.0-0.19 % Sodium Level 141 136-145 mmol/L Potassium Level 3.7 3.5-5.1 mmol/L Chloride Level 108 101-111 mmol/L Carbon Dioxide Level 23 21-32 mmol/L Blood Urea Nitrogen 11 7-18 mg/dL Creatinine 0.7 0.5-1.3 mg/dL Glomerular Filtration Rate Calc 97 >90 mL/min Random Glucose 85 70-105 mg/dL Total Calcium 8.1 L 8.5-10.1 mg/dL Total Bilirubin 0.6 0.2-1.0 mg/dL Aspartate Amino Transf (AST/SGOT) 52 H 10-37 U/L Alanine Aminotransferase (ALT/SGPT) 23 12-78 U/L Alkaline Phosphatase 204 H 50-136 U/L Total Protein 4.9 L 6.0-8.3 g/dL Albumin 1.8 L 3.5-5.0 g/dL Current Medications Medications (Trade) Dose Ordered Sig/Kenneth Route PRN Reason Start Time Stop Time Status Last Admin Dose Admin Acetaminophen (TYLenol 325MG TAB) 650 mg Q4H PRN PO PAIN/FEVER 06/09/24 23:00 07/09/24 22:59 06/11/24 09:38 650 MG Albuterol Sulfate (Proventil 0.083% 2.5mg/3ml) 2.5MG Q6H PRN IH SHORTNESS OF BREATH 06/07/24 16:00 07/07/24 15:59 06/15/24 11:07 2.5 MG Amlodipine Besylate (NorvASC 5MG TAB) 5 mg DAILY PO 06/11/24 11:00 06/14/24 05:05 DC 06/13/24 08:03 5 MG Amlodipine Besylate (NorvASC 5MG TAB) 10 mg DAILY PO 06/14/24 09:00 07/14/24 08:59 06/15/24 08:13 10 MG Atorvastatin Calcium (LIPItor 40MG) 40 mg HS PO 06/07/24 21:00 07/07/24 20:59 06/14/24 20:26 40 MG Budesonide (Pulmicort 0.5 Mg/2ml) 0.5 mg BIDRESP IH 06/07/24 18:00 07/07/24 17:59 06/15/24 06:31 0.5 MG Docusate Sodium (COLace 100MG CAP) 100 mg BID PO 06/12/24 12:00 07/12/24 11:59 06/15/24 08:13 100 MG Docusate Sodium (COLace 100MG CAP) 100 mg BID PO 06/12/24 21:00 06/12/24 11:51 DC Heparin Sodium/ Dextrose 250 ml @ 0 mls/hr PROTOCOL IV 06/07/24 14:00 06/07/24 13:52 DC Hydralazine HCl (APRESOLine 20MG INJ) 5 mg Q6H PRN IV ADMINISTER FOR SBP > 160 06/09/24 10:30 07/09/24 10:29 Hydromorphone HCl (DiLAUDid 0.5MG INJ) 0.2 mg Q4H PRN IVP SEVERE PAIN (7-10) 06/10/24 12:00 06/15/24 11:59 DC 06/15/24 10:33 0.2 MG Hydroxyzine HCl (ATArax 25MG TAB) 25 mg TID PO 06/12/24 14:00 07/12/24 13:59 06/15/24 08:12 25 MG Iron Sucrose (VenoFER) 100 mg DAILY IV 06/10/24 09:00 06/12/24 09:01 DC 06/12/24 08:32 100 MG Lactulose (Constulose 20gm/ 30ml Udcup) 20 gm BID PRN PO CONSTIPATION 06/12/24 12:00 07/12/24 11:59 06/15/24 08:12 20 GM Lidocaine (Lidoderm Patch 5%) 1 patch DAILY TP 06/11/24 09:00 07/11/24 08:59 06/14/24 09:13 1 PATCH Lisinopril (Prinivil 20mg) 20 mg DAILY PO 06/08/24 09:00 06/14/24 05:05 DC 06/13/24 08:03 20 MG Lisinopril (Prinivil 40mg) 40 mg DAILY PO 06/14/24 09:00 07/14/24 08:59 06/15/24 08:14 40 MG Magnesium Sulfate 50 ml @ 0 mls/hr PROTOCOL IV 06/10/24 09:00 06/10/24 08:52 DC Magnesium Sulfate 50 ml @ 0 mls/hr PROTOCOL PRN IV HYPOMAGNESEMIA 06/07/24 15:30 07/07/24 15:29 06/15/24 08:15 25 MLS/HR Nicotine (Nicoderm) 21 mg DAILY TD 06/13/24 09:00 07/13/24 08:59 Pantoprazole Sodium (PROTonix 40MG TAB) 40 mg DAILY PO 06/12/24 09:00 07/12/24 08:59 06/15/24 08:13 40 MG Pantoprazole Sodium 80 mg/ Sodium Chloride 100 ml @ 10 mls/hr Q10H IVP 06/07/24 14:00 06/11/24 10:55 DC 06/11/24 06:08 10 MLS/HR Potassium Chloride 100 ml @ 50 mls/hr AD PRN IV POTASSIUM PROTOCOL 06/07/24 15:30 07/07/24 15:29 Sodium Chloride 1,000 ml @ 100 mls/hr Q10H IV 06/07/24 15:30 07/07/24 15:29 06/13/24 02:05 100 MLS/HR Diagnostics / Radiology: [COPY/PASTE HERE IF NO REPORTS PLEASE DELETE SECTION] Assessment: Hiatal hernia Gastritis Diverticulosis DWAIN Elevated troponin HTN COPD Plan: Continue GI prophylaxis Advance diet as tolerated Avoid NSAIDs Antireflux measures Monitor H&H and transfuse as needed Call with questions, concerns or change in clinical status Patient to follow-up at clinic post discharge Thank you for this consult NAKUL FALCON [facility] Jun 15, 2024 14:04
[2024-06-15] MEDS: hydroMORPHone 0.5 MG SYG (0.5MG/0.5ML) IVP PRN (21:20)
--- NOTE | 2024-06-15 23:54 | CONS ---
SUBJECTIVE: The patient denies any significant problems overnight. He still required Dilaudid once or twice a day. He continues with general weakness. PHYSICAL EXAMINATION: VITAL SIGNS: Stable, afebrile. GENERAL: The patient is alert, no acute distress. HEART: Regular and rhythmic. LUNGS: With diminished breathing sounds in both bases. No crackles. ABDOMEN: Soft, mildly distended with tenderness in the right upper quadrant area. Bowel sounds present. EXTREMITIES: Mild pitting edema at the ankles bilaterally. LABORATORY DATA: WBC 7.5, hemoglobin 7.7, platelet count 168. CA 19-9 ____. CEA 643. Alpha fetoprotein 2.5. ASSESSMENT: * Multiple hepatic lesions, suspicious for malignancy, status post biopsy. * Anemia. * Failure to thrive. PLAN: The patient remains frail with general weakness. 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 He will need to have palliative chemotherapy. The patient still undecided about placement. Also, had discussed about comfort measures and palliative care. The patient will have further discussion with family. I will follow up results and have further recommendations. TID: [id number] RECEIPT: [id number]
[2024-06-16] VITALS (9 sets, daily range): BP systolic 131–151; BP diastolic 51–71; PULSE 77–90; RESP 17–20; TEMP 97.8–98.5; O2SAT 77–92
--- NOTE | 2024-06-16 11:43 | PN ---
[facility] PROGRESS NOTE Date of Service: Jun 16, 2024 Time of Service: 11:42 SUBJECTIVE: 06/08 patient seen at bedside, no acute events overnight. CT of the abdomen/pelvis showed hypodensities in the liver consistent with metastatic liver disease. We will order CEA, CA 19-9, AFP and consult Oncology for further recommendations. GI consulted and recommending EGD, we will follow up postp rocedure. Patient transfused 1 unit packed red blood cells, hemoglobin currently stable. Troponins mildly elevated however they have plateaued and are downtrending likely a sign of stress consistent with NSTEMI. Remainder of his labs are relatively unremarkable. 06/09 patient is seen and examined at bedside, no acute events overnight, during my visit the patient is comfortable, alert oriented x3, following commands, he is currently NPO, awaiting EGD. BP 160 6-68, afebrile, saturating normal on room air. Hemoglobin today seven nine, hematocrit 26, platelet count 354. AFB 4.0, carcinoembryonic antigen 612. CA 19-9 pending. Echocardiogram with LVEF 60 65%. We will do CBC q.8 hours with transfusion of 1 unit of PRBC if hemoglobin less than 7. Oncology consultation requested, we will follow input and recommendation. 06/10 patient is seen and examined at bedside, no acute events overnight, tolerating diet at time of my visit. hemodynamically stable, afebrile, saturating normal on room air. Blood pressure better today 149/55, rest of the vital signs are unremarkable. Hemoglobin 8.1, hematocrit 26.8. AFB 4.0, carcinoembryonic antigen 612. CA 19-9 pending. Echocardiogram with LVEF 60 65%. Patient had colonoscopy yesterday, finding of hemorrhoids, diverticulosis of the sigmoid colon and melanosis of the colon, three 5 to 8 mm polyps at the hepatic flexure and in the cecum, removed with a cold snare. Resected. And retrieved. Patient evaluated by oncologist, may need liver biopsy. 06/11 patient is seen and examined at bedside, no acute events overnight, case discussed with the RN. During my visit patient comfortably bed, BP mildly elevated 146/66, afebrile, saturating normal on room air. Hemoglobin stable 7.1, hematocrit 23.7. Denies melena, no hematochezia, no hematemesis. No hematuria. Patient with a tumor marker carcinoembryonic antigen elevated at 612. AFB negative. CA 19-9 pending. Echocardiogram with LVEF 60 65%. Patient had colonoscopy yesterday, finding of hemorrhoids, diverticulosis of the sigmoid colon and melanosis of the colon, three 5 to 8 mm polyps at the hepatic flexure and in the cecum, removed with a cold snare. Resected. And retrieved. Patient may benefit from liver biopsy. Follow GI input and recommendations. Pending oncology input and recommendation. 06/12 seen at bedside, no acute events overnight. He has been evaluated by Oncology who recommends CT-guided needle biopsy of the liver, we will be done tomorrow. Once procedure has been completed we will determine if patient is good candidate for discharge home to follow up outpatient for pathology results. Hemoglobin stable 06/13 patient seen at bedside, no acute events overnight. Patient evaluated by Physical therapy who recommends transitioned to [facility] for rehab, case management to assist. Today he is pending a CT-guided biopsy of the liver. He has been afebrile, hemodynamically stable saturating well on room air. Hemoglobin improved from 7.1 up to 7.2, remainder of his labs are relatively unremarkable. 06/14 patient seen at bedside, no acute events overnight. CT guided biopsy successfully done yesterday. Patient now pending SNF placement for rehab. Will follow up with case management 06/15 patient seen at bedside, no acute events overnight. Patient pending SNF placement, will follow up with PCP 06/16 patient is seen and examined at bedside, case discussed with the RN, no acute events overnight, during my visit patient comfortably in bed, hemodynamically stable, pending SNF placement for the patient to be discharged. Medication reconciliation done, we will discuss with case management today. REVIEW OF SYSTEMS 12 point review of systems negative unless noted in HPI PHYSICAL EXAM GENERAL APPEARANCE: The patient is awake, alert, and oriented, in no acute cardiopulmonary distress. Patient appears pain NEUROLOGICAL: Cranial nerves II-XII grossly intact. Motor is 5/5 in bilateral upper and lower extremities proximal to distal. No sensory deficits. HEENT: Face is symmetric. Pupils are equal and reactive. Extraocular movements are intact. NECK: Supple. No JVD. No thyromegaly. No submental, submandibular, pre- /postauricular, occipital or supraclavicular lymphadenopathy. CHEST: Normal chest expansion. No Telemetry. LUNGS: Absence of any rales, rhonchi or any wheezing. CARDIOVASCULAR: Regular. S1 and S2 normal. No appreciable rubs, murmurs or gallops. ABDOMEN: Soft, nontender, and nondistended. There is no rebound, voluntary guarding, or rigidity. : Deferred. No Palomares. EXTREMITIES: Non-edematous and not cyanotic. No clubbing. Good capillary refill. SKIN: No skin breakdown. Vital Signs (last 8hr) Date Time Temp Pulse Resp B/P (MAP) Pulse Ox O2 Delivery O2 Flow Rate FiO2 06/16/24 08:00 97.9 77 17 151/63 94 Room Air 0.0 06/16/24 06:40 82 20 06/16/24 06:40 82 20 N/A Room Air 21 LABS: Current Medications Medications (Trade) Dose Ordered Sig/Kenneth Route PRN Reason Start Time Stop Time Status Last Admin Dose Admin Acetaminophen (TYLenol 325MG TAB) 650 mg Q4H PRN PO PAIN/FEVER 06/09/24 23:00 07/09/24 22:59 06/11/24 09:38 650 MG Albuterol Sulfate (Proventil 0.083% 2.5mg/3ml) 2.5MG Q6H PRN IH SHORTNESS OF BREATH 06/07/24 16:00 07/07/24 15:59 06/16/24 02:42 2.5 MG Amlodipine Besylate (NorvASC 5MG TAB) 5 mg DAILY PO 06/11/24 11:00 06/14/24 05:05 DC 06/13/24 08:03 5 MG Amlodipine Besylate (NorvASC 5MG TAB) 10 mg DAILY PO 06/14/24 09:00 07/14/24 08:59 06/16/24 09:10 10 MG Atorvastatin Calcium (LIPItor 40MG) 40 mg HS PO 06/07/24 21:00 07/07/24 20:59 06/15/24 20:03 40 MG Budesonide (Pulmicort 0.5 Mg/2ml) 0.5 mg BIDRESP IH 06/07/24 18:00 07/07/24 17:59 06/16/24 06:38 0.5 MG Docusate Sodium (COLace 100MG CAP) 100 mg BID PO 06/12/24 12:00 07/12/24 11:59 06/16/24 09:10 100 MG Docusate Sodium (COLace 100MG CAP) 100 mg BID PO 06/12/24 21:00 06/12/24 11:51 DC Heparin Sodium/ Dextrose 250 ml @ 0 mls/hr PROTOCOL IV 06/07/24 14:00 06/07/24 13:52 DC Hydralazine HCl (APRESOLine 20MG INJ) 5 mg Q6H PRN IV ADMINISTER FOR SBP > 160 06/09/24 10:30 07/09/24 10:29 Hydromorphone HCl (DiLAUDid 0.5MG INJ) 0.2 mg Q4H PRN IVP SEVERE PAIN (7-10) 06/15/24 15:00 06/20/24 14:59 06/16/24 02:41 0.2 MG Hydromorphone HCl (DiLAUDid 0.5MG INJ) 0.2 mg Q4H PRN IVP SEVERE PAIN (7-10) 06/10/24 12:00 06/15/24 11:59 DC 06/15/24 10:33 0.2 MG Hydroxyzine HCl (ATArax 25MG TAB) 25 mg TID PO 06/12/24 14:00 07/12/24 13:59 06/16/24 09:10 25 MG Iron Sucrose (VenoFER) 100 mg DAILY IV 06/10/24 09:00 06/12/24 09:01 DC 06/12/24 08:32 100 MG Lactulose (Constulose 20gm/ 30ml Udcup) 20 gm BID PRN PO CONSTIPATION 06/12/24 12:00 07/12/24 11:59 06/15/24 08:12 20 GM Lidocaine (Lidoderm Patch 5%) 1 patch DAILY TP 06/11/24 09:00 07/11/24 08:59 06/14/24 09:13 1 PATCH Lisinopril (Prinivil 20mg) 20 mg DAILY PO 06/08/24 09:00 06/14/24 05:05 DC 06/13/24 08:03 20 MG Lisinopril (Prinivil 40mg) 40 mg DAILY PO 06/14/24 09:00 07/14/24 08:59 06/16/24 09:10 40 MG Magnesium Sulfate 50 ml @ 0 mls/hr PROTOCOL IV 06/10/24 09:00 06/10/24 08:52 DC Magnesium Sulfate 50 ml @ 0 mls/hr PROTOCOL PRN IV HYPOMAGNESEMIA 06/07/24 15:30 07/07/24 15:29 06/15/24 08:15 25 MLS/HR Nicotine (Nicoderm) 21 mg DAILY TD 06/13/24 09:00 07/13/24 08:59 Pantoprazole Sodium (PROTonix 40MG TAB) 40 mg DAILY PO 06/12/24 09:00 07/12/24 08:59 06/16/24 09:10 40 MG Pantoprazole Sodium 80 mg/ Sodium Chloride 100 ml @ 10 mls/hr Q10H IVP 06/07/24 14:00 06/11/24 10:55 DC 06/11/24 06:08 10 MLS/HR Potassium Chloride 100 ml @ 50 mls/hr AD PRN IV POTASSIUM PROTOCOL 06/07/24 15:30 07/07/24 15:29 Sodium Chloride 1,000 ml @ 100 mls/hr Q10H IV 06/07/24 15:30 07/07/24 15:29 06/15/24 20:05 100 MLS/HR DIAGNOSTICS / RADIOLOGY: [ ] ASSESSMENT: Hypodensities in the liver consistent with metastatic disease Melena with concern for GI bleed POA Acute symptomatic anemia Microcytic anemia Troponin elevation likely in setting of type 2 MN from anemia Hypertension Hyperlipidemia History of COPD History of gastric ulcer History of constipation PLAN: - patient remains admitted to the medical floor - continue to follow CBC transfuse as needed - Continue nicotine patch - Continue hydroxyzine 25mg TID for anxiety/depression - Continue lactulose BID, titrate to 2 BM per day - Continue lisinopril 20mg q24h - continue to follow GI input and recommendations. Patient may benefit from liver biopsy, pending oncology input and recommendations. - continue to follow tumor marker - Trend H/H - GI and DVT prophylaxis - Case management to assist with SNF placement fo rrehab Disposition: Pending SNF placement GRICELDA CABRERA MD Jun 16, 2024 11:43
[2024-06-16] MEDS: hydroMORPHone 0.5 MG SYG (0.5MG/0.5ML) IVP PRN (14:39)
--- NOTE | 2024-06-16 15:40 | NUR ---
Nutritional Note: Pt reported no N/V, no MVI, last BM 06/15/24, UBW of 185 lbs before he retired, and poor dentition. Pt reported liking the food, PO intake 75%, and occasionally eats it cold d/t sleeping during delivery. Pt was informed to advise the nurse to call for a warm plate when he wakes up late. Pt was agreeable to Ensure Max supplement in chocolate and Prostat jello to supplement meals. Pt reported accessing food challenging d/t living alone in a trailer and unable to walk or drive. Pt is moderate risk for PCM due to social economic factors. Pt adherence expectance is good. Nutritional concerns: PO Fe intake and food security Recommendations: - Continue GI soft/bland diet and finely chopped modifier - Monitor PO intake - Encourage PO intake of 50 75% at meals and consistent intake - Order chilled Ensure Max qd BID am and dinner tray - Order Prostat jello 30ml qd BID in lunch and dinner tray - Recommend Felicita Jurado MVI - Order A1C lab to asses BG - Reweigh as able - Recommend public health social worker evaluation for possible home delivery meal programs - Monitor care goals RD to follow + available for consult per protocol Signed by Dietetic Student Sydnee Mason Addendum: 06/16/24 at [address] Amended: Links added.
--- NOTE | 2024-06-16 15:44 | PN ---
GASTROENTEROLOGY PROGRESS NOTE Date of Visit: Jun 16, 2024 Time of Visit: 15:44 Events / Notes: No acute events overnight. Patient s/p EGD revealing hiatal hernia and gastritis. Colonoscopy revealing hemorrhoids and diverticulosis, colon polyps. Review of Systems: CONSTITUTIONAL: No malaise or change in sensation of wellbeing. ENMT: No rhinorrhea, otorrhea, sinus pain, ear ache. CARDIOVASCULAR: No angina, palpitations, orthopnea or paroxysmal dyspnea. RESPIRATORY: No SOB. GASTROINTESTINAL: No abdominal pain, nausea, vomiting, diarrhea, hematemesis, melena or change in the patient's habitual bowel movements consistency/number. GENITOURINARY: No dysuria, hematuria or change in bladder continence. MUSCULOSKELETAL: No new muscle pain or decrease in muscular strength. No new joint swelling, redness or tenderness. SKIN: No new rash. Physical Exam: GEN: Awake, alert, oriented in person, time and place, and in no acute distress. HEENT: No sinus tenderness. Tympanic membranes were not examined. No rhinorrhea. Oral pharyngeal mucosa is pink, moist and within normal limits. Neck is supple with no cervical lymphadenopathy, thyromegaly or JVD. CHEST: Inspection, palpation and percussion of the chest were unremarkable. Lung auscultation revealed normal breath sounds bilaterally. CARDIAC: PMI is within normal limits. Heart sounds are regular. Normal S1, S2. No gallop or murmur. ABD: Soft, non-tender and not distended. No peritoneal signs on palpation. No organomegaly. Normal bowel sounds. EXT: No cyanosis or clubbing. No edema. SKIN: Intact. No rashes. JOINTS: No evidence of synovitis or acute arthritis. NEURO: Alert and oriented to name, place and person. Cranial nerve examination is unremarkable. No focal motor deficits. Normal speech. Gait is normal. Strength is normal. Vital Signs (last 8hr) Date Time Temp Pulse Resp B/P (MAP) Pulse Ox O2 Delivery O2 Flow Rate FiO2 06/16/24 13:54 82 20 06/16/24 12:00 98.4 82 17 151/71 94 Room Air 0.0 06/16/24 08:00 77 Room Air* 0 21 06/16/24 08:00 97.9 77 17 151/63 94 Room Air 0.0 Laboratory: [ ] Current Medications Medications (Trade) Dose Ordered Sig/Kenneth Route PRN Reason Start Time Stop Time Status Last Admin Dose Admin Acetaminophen (TYLenol 325MG TAB) 650 mg Q4H PRN PO PAIN/FEVER 06/09/24 23:00 07/09/24 22:59 06/11/24 09:38 650 MG Albuterol Sulfate (Proventil 0.083% 2.5mg/3ml) 2.5MG Q6H PRN IH SHORTNESS OF BREATH 06/07/24 16:00 07/07/24 15:59 06/16/24 13:53 2.5 MG Amlodipine Besylate (NorvASC 5MG TAB) 5 mg DAILY PO 06/11/24 11:00 06/14/24 05:05 DC 06/13/24 08:03 5 MG Amlodipine Besylate (NorvASC 5MG TAB) 10 mg DAILY PO 06/14/24 09:00 07/14/24 08:59 06/16/24 09:10 10 MG Atorvastatin Calcium (LIPItor 40MG) 40 mg HS PO 06/07/24 21:00 07/07/24 20:59 06/15/24 20:03 40 MG Budesonide (Pulmicort 0.5 Mg/2ml) 0.5 mg BIDRESP IH 06/07/24 18:00 07/07/24 17:59 06/16/24 06:38 0.5 MG Docusate Sodium (COLace 100MG CAP) 100 mg BID PO 06/12/24 12:00 07/12/24 11:59 06/16/24 09:10 100 MG Docusate Sodium (COLace 100MG CAP) 100 mg BID PO 06/12/24 21:00 06/12/24 11:51 DC Heparin Sodium/ Dextrose 250 ml @ 0 mls/hr PROTOCOL IV 06/07/24 14:00 06/07/24 13:52 DC Hydralazine HCl (APRESOLine 20MG INJ) 5 mg Q6H PRN IV ADMINISTER FOR SBP > 160 06/09/24 10:30 07/09/24 10:29 Hydromorphone HCl (DiLAUDid 0.5MG INJ) 0.2 mg Q4H PRN IVP SEVERE PAIN (7-10) 06/15/24 15:00 06/16/24 14:27 DC 06/16/24 11:54 0.2 MG Hydromorphone HCl (DiLAUDid 0.5MG INJ) 0.2 mg Q4H PRN IVP SEVERE PAIN (7-10) 06/10/24 12:00 06/15/24 11:59 DC 06/15/24 10:33 0.2 MG Hydromorphone HCl (DiLAUDid 0.5MG INJ) 0.4 mg Q4H PRN IVP SEVERE PAIN (7-10) 06/16/24 14:30 06/21/24 14:29 06/16/24 14:39 0.4 MG Hydroxyzine HCl (ATArax 25MG TAB) 25 mg TID PO 06/12/24 14:00 07/12/24 13:59 06/16/24 14:39 25 MG Iron Sucrose (VenoFER) 100 mg DAILY IV 06/10/24 09:00 06/12/24 09:01 DC 06/12/24 08:32 100 MG Lactulose (Constulose 20gm/ 30ml Udcup) 20 gm BID PRN PO CONSTIPATION 06/12/24 12:00 07/12/24 11:59 06/15/24 08:12 20 GM Lidocaine (Lidoderm Patch 5%) 1 patch DAILY TP 06/11/24 09:00 07/11/24 08:59 06/14/24 09:13 1 PATCH Lisinopril (Prinivil 20mg) 20 mg DAILY PO 06/08/24 09:00 06/14/24 05:05 DC 06/13/24 08:03 20 MG Lisinopril (Prinivil 40mg) 40 mg DAILY PO 06/14/24 09:00 07/14/24 08:59 06/16/24 09:10 40 MG Magnesium Sulfate 50 ml @ 0 mls/hr PROTOCOL IV 06/10/24 09:00 06/10/24 08:52 DC Magnesium Sulfate 50 ml @ 0 mls/hr PROTOCOL PRN IV HYPOMAGNESEMIA 06/07/24 15:30 07/07/24 15:29 06/15/24 08:15 25 MLS/HR Nicotine (Nicoderm) 21 mg DAILY TD 06/13/24 09:00 07/13/24 08:59 Pantoprazole Sodium (PROTonix 40MG TAB) 40 mg DAILY PO 06/12/24 09:00 07/12/24 08:59 06/16/24 09:10 40 MG Pantoprazole Sodium 80 mg/ Sodium Chloride 100 ml @ 10 mls/hr Q10H IVP 06/07/24 14:00 06/11/24 10:55 DC 06/11/24 06:08 10 MLS/HR Phenyleph/Shark Oil/Glycerin/ Petrol (Hem-Prep Rectal Oint) 1 STEPHEN AD Q8H PRN RC HEMORRHOIDS 06/16/24 14:30 07/16/24 14:29 Potassium Chloride 100 ml @ 50 mls/hr AD PRN IV POTASSIUM PROTOCOL 06/07/24 15:30 07/07/24 15:29 Sodium Chloride 1,000 ml @ 100 mls/hr Q10H IV 06/07/24 15:30 07/07/24 15:29 06/15/24 20:05 100 MLS/HR Diagnostics / Radiology: [COPY/PASTE HERE IF NO REPORTS PLEASE DELETE SECTION] Assessment: Hiatal hernia Gastritis Diverticulosis DWAIN Elevated troponin HTN COPD Plan: Continue GI prophylaxis Advance diet as tolerated Avoid NSAIDs Antireflux measures Monitor H&H and transfuse as needed Call with questions, concerns or change in clinical status Patient to follow-up at clinic post discharge Thank you for this consult NAKUL FALCON Jun 16, 2024 15:44
[2024-06-16] MEDS: HEMORRHOIDAL OINTMENT 57 GM CREAM.GM. RC PRN (17:25)
[2024-06-17] VITALS (9 sets, daily range): BP systolic 126–152; BP diastolic 49–63; PULSE 80–90; RESP 18–20; TEMP 97.4–99.1; O2SAT 95–96
[2024-06-17 03:52] LABS: HEMATOCRIT 23.9 % (42-54); MEAN CORPUSCULAR HEMOGLOBIN 23.4 pg (27.0-33.0); MEAN CORPUSCULAR HGB CONC 30.1 g/dL (32.0-36.0); MEAN CORPUSCULAR VOLUME 77.6 fL (79-99); PLATELET COUNT (AUTO) 320 K/uL (130-400); RED BLOOD CELL COUNT(AUTO) 3.08 MIL/uL (4.50-6.20); WHITE BLOOD COUNT (AUTO) 7.5 K/uL (4.8-10.8)
[2024-06-17 04:18] LABS: ALBUMIN 1.7 g/dL (3.5-5.0); BILIRUBIN,TOTAL 0.6 mg/dL (0.2-1.0); CREATININE 0.7 mg/dL (0.5-1.3); MAGNESIUM 1.7 mg/dL (1.80-2.40); POTASSIUM 3.5 mmol/L (3.5-5.1); TOTAL PROTEIN, SERUM 4.8 g/dL (6.0-8.3)
--- NOTE | 2024-06-17 08:21 | PN ---
GASTROENTEROLOGY PROGRESS NOTE Date of Visit: Jun 17, 2024 Time of Visit: 08:21 Events / Notes: No acute events overnight. Patient s/p EGD revealing hiatal hernia and gastritis. Colonoscopy revealing hemorrhoids and diverticulosis, colon polyps. Review of Systems: CONSTITUTIONAL: No malaise or change in sensation of wellbeing. ENMT: No rhinorrhea, otorrhea, sinus pain, ear ache. CARDIOVASCULAR: No angina, palpitations, orthopnea or paroxysmal dyspnea. RESPIRATORY: No SOB. GASTROINTESTINAL: No abdominal pain, nausea, vomiting, diarrhea, hematemesis, melena or change in the patient's habitual bowel movements consistency/number. GENITOURINARY: No dysuria, hematuria or change in bladder continence. MUSCULOSKELETAL: No new muscle pain or decrease in muscular strength. No new joint swelling, redness or tenderness. SKIN: No new rash. Physical Exam: GEN: Awake, alert, oriented in person, time and place, and in no acute distress. HEENT: No sinus tenderness. Tympanic membranes were not examined. No rhinorrhea. Oral pharyngeal mucosa is pink, moist and within normal limits. Neck is supple with no cervical lymphadenopathy, thyromegaly or JVD. CHEST: Inspection, palpation and percussion of the chest were unremarkable. Lung auscultation revealed normal breath sounds bilaterally. CARDIAC: PMI is within normal limits. Heart sounds are regular. Normal S1, S2. No gallop or murmur. ABD: Soft, non-tender and not distended. No peritoneal signs on palpation. No organomegaly. Normal bowel sounds. EXT: No cyanosis or clubbing. No edema. SKIN: Intact. No rashes. JOINTS: No evidence of synovitis or acute arthritis. NEURO: Alert and oriented to name, place and person. Cranial nerve examination is unremarkable. No focal motor deficits. Normal speech. Gait is normal. Strength is normal. Vital Signs (last 8hr) Date Time Temp Pulse Resp B/P (MAP) Pulse Ox O2 Delivery O2 Flow Rate FiO2 06/17/24 07:00 97.3 87 20 152/62 95 Room Air 21 06/17/24 06:22 90 20 N/A Room Air 21 06/17/24 06:20 90 20 06/17/24 03:55 99.1 80 18 130/52 94 Room Air Laboratory: [ ] Laboratory: Test 06/17/24 03:18 Range/Units White Blood Count 7.5 4.8-10.8 K/uL Red Blood Count 3.08 L 4.50-6.20 MIL/uL Hemoglobin 7.2 L 14.0-18.0 g/dL Hematocrit 23.9 L 42-54 % Mean Corpuscular Volume 77.6 L 79-99 fL Mean Corpuscular Hemoglobin 23.4 L 27.0-33.0 pg Mean Corpuscular Hemoglobin Concent 30.1 L 32.0-36.0 g/dL Red Cell Distribution Width 19.0 H 11.0-15.5 % Platelet Count 320 # 130-400 K/uL Mean Platelet Volume 10.3 7.5-10.5 fL Nucleated Red Blood Cells 0.0 0.0-0.19 % Red Blood Cell Morphology See comments Sodium Level 136 136-145 mmol/L Potassium Level 3.5 3.5-5.1 mmol/L Chloride Level 103 101-111 mmol/L Carbon Dioxide Level 28 21-32 mmol/L Blood Urea Nitrogen 11 7-18 mg/dL Creatinine 0.7 0.5-1.3 mg/dL Glomerular Filtration Rate Calc 97 >90 mL/min Random Glucose 97 70-105 mg/dL Total Calcium 8.0 L 8.5-10.1 mg/dL Magnesium Level 1.70 L 1.80-2.40 mg/dL Total Bilirubin 0.6 0.2-1.0 mg/dL Aspartate Amino Transf (AST/SGOT) 50 H 10-37 U/L Alanine Aminotransferase (ALT/SGPT) 29 12-78 U/L Alkaline Phosphatase 279 H 50-136 U/L Total Protein 4.8 L 6.0-8.3 g/dL Albumin 1.7 L 3.5-5.0 g/dL Current Medications Medications (Trade) Dose Ordered Sig/Kenneth Route PRN Reason Start Time Stop Time Status Last Admin Dose Admin Acetaminophen (TYLenol 325MG TAB) 650 mg Q4H PRN PO PAIN/FEVER 06/09/24 23:00 07/09/24 22:59 06/11/24 09:38 650 MG Albuterol Sulfate (Proventil 0.083% 2.5mg/3ml) 2.5MG Q6H PRN IH SHORTNESS OF BREATH 06/07/24 16:00 07/07/24 15:59 06/17/24 06:19 2.5 MG Amlodipine Besylate (NorvASC 5MG TAB) 5 mg DAILY PO 06/11/24 11:00 06/14/24 05:05 DC 06/13/24 08:03 5 MG Amlodipine Besylate (NorvASC 5MG TAB) 10 mg DAILY PO 06/14/24 09:00 07/14/24 08:59 06/16/24 09:10 10 MG Atorvastatin Calcium (LIPItor 40MG) 40 mg HS PO 06/07/24 21:00 07/07/24 20:59 06/16/24 19:44 40 MG Budesonide (Pulmicort 0.5 Mg/2ml) 0.5 mg BIDRESP IH 06/07/24 18:00 07/07/24 17:59 06/17/24 06:19 0.5 MG Docusate Sodium (COLace 100MG CAP) 100 mg BID PO 06/12/24 12:00 07/12/24 11:59 06/16/24 19:44 100 MG Docusate Sodium (COLace 100MG CAP) 100 mg BID PO 06/12/24 21:00 06/12/24 11:51 DC Heparin Sodium/ Dextrose 250 ml @ 0 mls/hr PROTOCOL IV 06/07/24 14:00 06/07/24 13:52 DC Hydralazine HCl (APRESOLine 20MG INJ) 5 mg Q6H PRN IV ADMINISTER FOR SBP > 160 06/09/24 10:30 07/09/24 10:29 Hydromorphone HCl (DiLAUDid 0.5MG INJ) 0.2 mg Q4H PRN IVP SEVERE PAIN (7-10) 06/15/24 15:00 06/16/24 14:27 DC 06/16/24 11:54 0.2 MG Hydromorphone HCl (DiLAUDid 0.5MG INJ) 0.2 mg Q4H PRN IVP SEVERE PAIN (7-10) 06/10/24 12:00 06/15/24 11:59 DC 06/15/24 10:33 0.2 MG Hydromorphone HCl (DiLAUDid 0.5MG INJ) 0.4 mg Q4H PRN IVP SEVERE PAIN (7-10) 06/16/24 14:30 06/21/24 14:29 06/17/24 07:07 0.4 MG Hydroxyzine HCl (ATArax 25MG TAB) 25 mg TID PO 06/12/24 14:00 07/12/24 13:59 06/16/24 19:44 25 MG Iron Sucrose (VenoFER) 100 mg DAILY IV 06/10/24 09:00 06/12/24 09:01 DC 06/12/24 08:32 100 MG Lactulose (Constulose 20gm/ 30ml Udcup) 20 gm BID PRN PO CONSTIPATION 06/12/24 12:00 07/12/24 11:59 06/15/24 08:12 20 GM Lidocaine (Lidoderm Patch 5%) 1 patch DAILY TP 06/11/24 09:00 07/11/24 08:59 06/14/24 09:13 1 PATCH Lisinopril (Prinivil 20mg) 20 mg DAILY PO 06/08/24 09:00 06/14/24 05:05 DC 06/13/24 08:03 20 MG Lisinopril (Prinivil 40mg) 40 mg DAILY PO 06/14/24 09:00 07/14/24 08:59 06/16/24 09:10 40 MG Magnesium Sulfate 50 ml @ 0 mls/hr PROTOCOL IV 06/10/24 09:00 06/10/24 08:52 DC Magnesium Sulfate 50 ml @ 0 mls/hr PROTOCOL PRN IV HYPOMAGNESEMIA 06/07/24 15:30 07/07/24 15:29 06/17/24 05:05 25 MLS/HR Nicotine (Nicoderm) 21 mg DAILY TD 06/13/24 09:00 07/13/24 08:59 Pantoprazole Sodium (PROTonix 40MG TAB) 40 mg DAILY PO 06/12/24 09:00 07/12/24 08:59 06/16/24 09:10 40 MG Pantoprazole Sodium 80 mg/ Sodium Chloride 100 ml @ 10 mls/hr Q10H IVP 06/07/24 14:00 06/11/24 10:55 DC 06/11/24 06:08 10 MLS/HR Phenyleph/Shark Oil/Glycerin/ Petrol (Hem-Prep Rectal Oint) 1 STEPHEN AD Q8H PRN RC HEMORRHOIDS 06/16/24 14:30 07/16/24 14:29 06/16/24 17:25 1 GM Potassium Chloride 100 ml @ 50 mls/hr AD PRN IV POTASSIUM PROTOCOL 06/07/24 15:30 07/07/24 15:29 Sodium Chloride 1,000 ml @ 100 mls/hr Q10H IV 06/07/24 15:30 07/07/24 15:29 06/15/24 20:05 100 MLS/HR Diagnostics / Radiology: [COPY/PASTE HERE IF NO REPORTS PLEASE DELETE SECTION] Assessment: Hiatal hernia Gastritis Diverticulosis DWAIN Elevated troponin HTN COPD Plan: Continue GI prophylaxis Advance diet as tolerated Avoid NSAIDs Antireflux measures Monitor H&H and transfuse as needed Call with questions, concerns or change in clinical status Patient to follow-up at clinic post discharge Thank you for this consult NAKUL FALCON Jun 17, 2024 08:21
[2024-06-17] MEDS ORDERED: PoTASSium chloRIDE 20MEQ/100ML 100 ML IV PRN (08:30)
[2024-06-17] MEDS ORDERED: PoTASSium chloRIDE 20MEQ ER 20 MEQ ERTAB PO PRN (08:30)
[2024-06-17] MEDS ORDERED: PoTASSium chl 10% ELIXIR 20MEQ 20 MEQ/15 ML UDCUP PO PRN (08:30)
--- NOTE | 2024-06-17 09:50 | NUR ---
DC PLAN RECEIVED CALL FROM [facility] [phone]. PATIENT ACCEPTED. ARMAND SENT. WILL GO VIA [facility]. Addendum: 06/17/24 at 1015 by MOHINI FIGUEROA RN CM Amended: Links added.
--- NOTE | 2024-06-17 12:13 | PN ---
[facility] PROGRESS NOTE Date of Service: Jun 17, 2024 Time of Service: 12:12 SUBJECTIVE: 06/08 patient seen at bedside, no acute events overnight. CT of the abdomen/pelvis showed hypodensities in the liver consistent with metastatic liver disease. We will order CEA, CA 19-9, AFP and consult Oncology for further recommendations. GI consulted and recommending EGD, we will follow up postp rocedure. Patient transfused 1 unit packed red blood cells, hemoglobin currently stable. Troponins mildly elevated however they have plateaued and are downtrending likely a sign of stress consistent with NSTEMI. Remainder of his labs are relatively unremarkable. 06/09 patient is seen and examined at bedside, no acute events overnight, during my visit the patient is comfortable, alert oriented x3, following commands, he is currently NPO, awaiting EGD. BP 160 6-68, afebrile, saturating normal on room air. Hemoglobin today seven nine, hematocrit 26, platelet count 354. AFB 4.0, carcinoembryonic antigen 612. CA 19-9 pending. Echocardiogram with LVEF 60 65%. We will do CBC q.8 hours with transfusion of 1 unit of PRBC if hemoglobin less than 7. Oncology consultation requested, we will follow input and recommendation. 06/10 patient is seen and examined at bedside, no acute events overnight, tolerating diet at time of my visit. hemodynamically stable, afebrile, saturating normal on room air. Blood pressure better today 149/55, rest of the vital signs are unremarkable. Hemoglobin 8.1, hematocrit 26.8. AFB 4.0, carcinoembryonic antigen 612. CA 19-9 pending. Echocardiogram with LVEF 60 65%. Patient had colonoscopy yesterday, finding of hemorrhoids, diverticulosis of the sigmoid colon and melanosis of the colon, three 5 to 8 mm polyps at the hepatic flexure and in the cecum, removed with a cold snare. Resected. And retrieved. Patient evaluated by oncologist, may need liver biopsy. 06/11 patient is seen and examined at bedside, no acute events overnight, case discussed with the RN. During my visit patient comfortably bed, BP mildly elevated 146/66, afebrile, saturating normal on room air. Hemoglobin stable 7.1, hematocrit 23.7. Denies melena, no hematochezia, no hematemesis. No hematuria. Patient with a tumor marker carcinoembryonic antigen elevated at 612. AFB negative. CA 19-9 pending. Echocardiogram with LVEF 60 65%. Patient had colonoscopy yesterday, finding of hemorrhoids, diverticulosis of the sigmoid colon and melanosis of the colon, three 5 to 8 mm polyps at the hepatic flexure and in the cecum, removed with a cold snare. Resected. And retrieved. Patient may benefit from liver biopsy. Follow GI input and recommendations. Pending oncology input and recommendation. 06/12 seen at bedside, no acute events overnight. He has been evaluated by Oncology who recommends CT-guided needle biopsy of the liver, we will be done tomorrow. Once procedure has been completed we will determine if patient is good candidate for discharge home to follow up outpatient for pathology results. Hemoglobin stable 06/13 patient seen at bedside, no acute events overnight. Patient evaluated by Physical therapy who recommends transitioned to long term for rehab, case management to assist. Today he is pending a CT-guided biopsy of the liver. He has been afebrile, hemodynamically stable saturating well on room air. Hemoglobin improved from 7.1 up to 7.2, remainder of his labs are relatively unremarkable. 06/14 patient seen at bedside, no acute events overnight. CT guided biopsy successfully done yesterday. Patient now pending SNF placement for rehab. Will follow up with case management 06/15 patient seen at bedside, no acute events overnight. Patient pending SNF placement, will follow up with PCP 06/16 patient is seen and examined at bedside, case discussed with the RN, no acute events overnight, during my visit patient comfortably in bed, hemodynamically stable, pending SNF placement for the patient to be discharged. Medication reconciliation done, we will discuss with case management today. 06/17 patient is seen and examined at bedside, discussed with the RN, no acute events overnight, possible discharge to long term facility today. REVIEW OF SYSTEMS 12 point review of systems negative unless noted in HPI PHYSICAL EXAM GENERAL APPEARANCE: The patient is awake, alert, and oriented, in no acute cardiopulmonary distress. Patient appears pain NEUROLOGICAL: Cranial nerves II-XII grossly intact. Motor is 5/5 in bilateral upper and lower extremities proximal to distal. No sensory deficits. HEENT: Face is symmetric. Pupils are equal and reactive. Extraocular movements are intact. NECK: Supple. No JVD. No thyromegaly. No submental, submandibular, pre- /postauricular, occipital or supraclavicular lymphadenopathy. CHEST: Normal chest expansion. No Telemetry. LUNGS: Absence of any rales, rhonchi or any wheezing. CARDIOVASCULAR: Regular. S1 and S2 normal. No appreciable rubs, murmurs or gallops. ABDOMEN: Soft, nontender, and nondistended. There is no rebound, voluntary guarding, or rigidity. : Deferred. No Palomares. EXTREMITIES: Non-edematous and not cyanotic. No clubbing. Good capillary refill. SKIN: No skin breakdown. Vital Signs (last 8hr) Date Time Temp Pulse Resp B/P (MAP) Pulse Ox O2 Delivery O2 Flow Rate FiO2 06/17/24 11:20 97.5 85 20 142/63 96 Room Air 06/17/24 11:04 85 20 06/17/24 10:12 95 Room Air* 0 06/17/24 07:00 97.3 87 20 152/62 95 Room Air 06/17/24 06:22 90 20 N/A Room Air 06/17/24 06:20 90 20 LABS: Laboratory: Test 06/17/24 03:18 Range/Units White Blood Count 7.5 4.8-10.8 K/uL Red Blood Count 3.08 L 4.50-6.20 MIL/uL Hemoglobin 7.2 L 14.0-18.0 g/dL Hematocrit 23.9 L 42-54 % Mean Corpuscular Volume 77.6 L 79-99 fL Mean Corpuscular Hemoglobin 23.4 L 27.0-33.0 pg Mean Corpuscular Hemoglobin Concent 30.1 L 32.0-36.0 g/dL Red Cell Distribution Width 19.0 H 11.0-15.5 % Platelet Count 320 # 130-400 K/uL Mean Platelet Volume 10.3 7.5-10.5 fL Nucleated Red Blood Cells 0.0 0.0-0.19 % Red Blood Cell Morphology See comments Sodium Level 136 136-145 mmol/L Potassium Level 3.5 3.5-5.1 mmol/L Chloride Level 103 101-111 mmol/L Carbon Dioxide Level 28 21-32 mmol/L Blood Urea Nitrogen 11 7-18 mg/dL Creatinine 0.7 0.5-1.3 mg/dL Glomerular Filtration Rate Calc 97 >90 mL/min Random Glucose 97 70-105 mg/dL Total Calcium 8.0 L 8.5-10.1 mg/dL Magnesium Level 1.70 L 1.80-2.40 mg/dL Total Bilirubin 0.6 0.2-1.0 mg/dL Aspartate Amino Transf (AST/SGOT) 50 H 10-37 U/L Alanine Aminotransferase (ALT/SGPT) 29 12-78 U/L Alkaline Phosphatase 279 H 50-136 U/L Total Protein 4.8 L 6.0-8.3 g/dL Albumin 1.7 L 3.5-5.0 g/dL Current Medications Medications (Trade) Dose Ordered Sig/Kenneth Route PRN Reason Start Time Stop Time Status Last Admin Dose Admin Acetaminophen (TYLenol 325MG TAB) 650 mg Q4H PRN PO PAIN/FEVER 06/09/24 23:00 07/09/24 22:59 06/11/24 09:38 650 MG Albuterol Sulfate (Proventil 0.083% 2.5mg/3ml) 2.5MG Q6H PRN IH SHORTNESS OF BREATH 06/07/24 16:00 07/07/24 15:59 06/17/24 11:04 2.5 MG Amlodipine Besylate (NorvASC 5MG TAB) 5 mg DAILY PO 06/11/24 11:00 06/14/24 05:05 DC 06/13/24 08:03 5 MG Amlodipine Besylate (NorvASC 5MG TAB) 10 mg DAILY PO 06/14/24 09:00 07/14/24 08:59 06/17/24 09:31 10 MG Atorvastatin Calcium (LIPItor 40MG) 40 mg HS PO 06/07/24 21:00 07/07/24 20:59 06/16/24 19:44 40 MG Budesonide (Pulmicort 0.5 Mg/2ml) 0.5 mg BIDRESP IH 06/07/24 18:00 07/07/24 17:59 06/17/24 06:19 0.5 MG Docusate Sodium (COLace 100MG CAP) 100 mg BID PO 06/12/24 12:00 07/12/24 11:59 06/17/24 09:30 100 MG Docusate Sodium (COLace 100MG CAP) 100 mg BID PO 06/12/24 21:00 06/12/24 11:51 DC Heparin Sodium/ Dextrose 250 ml @ 0 mls/hr PROTOCOL IV 06/07/24 14:00 06/07/24 13:52 DC Hydralazine HCl (APRESOLine 20MG INJ) 5 mg Q6H PRN IV ADMINISTER FOR SBP > 160 06/09/24 10:30 07/09/24 10:29 Hydromorphone HCl (DiLAUDid 0.5MG INJ) 0.2 mg Q4H PRN IVP SEVERE PAIN (7-10) 06/15/24 15:00 06/16/24 14:27 DC 06/16/24 11:54 0.2 MG Hydromorphone HCl (DiLAUDid 0.5MG INJ) 0.2 mg Q4H PRN IVP SEVERE PAIN (7-10) 06/10/24 12:00 06/15/24 11:59 DC 06/15/24 10:33 0.2 MG Hydromorphone HCl (DiLAUDid 0.5MG INJ) 0.4 mg Q4H PRN IVP SEVERE PAIN (7-10) 06/16/24 14:30 06/21/24 14:29 06/17/24 07:07 0.4 MG Hydroxyzine HCl (ATArax 25MG TAB) 25 mg TID PO 06/12/24 14:00 07/12/24 13:59 06/17/24 09:34 25 MG Iron Sucrose (VenoFER) 100 mg DAILY IV 06/10/24 09:00 06/12/24 09:01 DC 06/12/24 08:32 100 MG Lactulose (Constulose 20gm/ 30ml Udcup) 20 gm BID PRN PO CONSTIPATION 06/12/24 12:00 07/12/24 11:59 06/15/24 08:12 20 GM Lidocaine (Lidoderm Patch 5%) 1 patch DAILY TP 06/11/24 09:00 07/11/24 08:59 06/14/24 09:13 1 PATCH Lisinopril (Prinivil 20mg) 20 mg DAILY PO 06/08/24 09:00 06/14/24 05:05 DC 06/13/24 08:03 20 MG Lisinopril (Prinivil 40mg) 40 mg DAILY PO 06/14/24 09:00 07/14/24 08:59 06/17/24 09:31 40 MG Magnesium Sulfate 50 ml @ 0 mls/hr PROTOCOL IV 06/10/24 09:00 06/10/24 08:52 DC Magnesium Sulfate 50 ml @ 0 mls/hr PROTOCOL PRN IV HYPOMAGNESEMIA 06/07/24 15:30 07/07/24 15:29 06/17/24 05:05 25 MLS/HR Nicotine (Nicoderm) 21 mg DAILY TD 06/13/24 09:00 07/13/24 08:59 Pantoprazole Sodium (PROTonix 40MG TAB) 40 mg DAILY PO 06/12/24 09:00 07/12/24 08:59 06/17/24 09:31 40 MG Pantoprazole Sodium 80 mg/ Sodium Chloride 100 ml @ 10 mls/hr Q10H IVP 06/07/24 14:00 06/11/24 10:55 DC 06/11/24 06:08 10 MLS/HR Phenyleph/Shark Oil/Glycerin/ Petrol (Hem-Prep Rectal Oint) 1 STEPHEN AD Q8H PRN RC HEMORRHOIDS 06/16/24 14:30 07/16/24 14:29 06/16/24 17:25 1 GM Potassium Chloride 100 ml @ 50 mls/hr AD PRN IV POTASSIUM PROTOCOL 06/07/24 15:30 06/17/24 08:23 DC Potassium Chloride 100 ml @ 100 mls/hr AD PRN IV POTASSIUM PROTOCOL 06/17/24 08:30 07/17/24 08:29 Potassium Chloride (K-Dur/Klor-Con 20meq) 20 meq AD PRN PO POTASSIUM PROTOCOL 06/17/24 08:30 07/17/24 08:29 Potassium Chloride (KCl 10% Elixir 20meq/15ml) 20 meq AD PRN PO POTASSIUM PROTOCOL 06/17/24 08:30 07/17/24 08:29 Sodium Chloride 1,000 ml @ 100 mls/hr Q10H IV 06/07/24 15:30 07/07/24 15:29 06/15/24 20:05 100 MLS/HR DIAGNOSTICS / RADIOLOGY: [ ] ASSESSMENT: Hypodensities in the liver consistent with metastatic disease Melena with concern for GI bleed POA Acute symptomatic anemia Microcytic anemia Troponin elevation likely in setting of type 2 UT from anemia Hypertension Hyperlipidemia History of COPD History of gastric ulcer History of constipation PLAN: - patient remains admitted to the medical floor - continue to follow CBC transfuse as needed - Continue nicotine patch - Continue hydroxyzine 25mg TID for anxiety/depression - Continue lactulose BID, titrate to 2 BM per day - Continue lisinopril 20mg q24h - continue to follow GI input and recommendations. - continue to follow tumor marker - Trend H/H - GI and DVT prophylaxis - Case management to assist with SNF placement fo rrehab Disposition: Pending SNF placement, possible acceptance today. GRICELDA CABRERA MD Jun 17, 2024 12:13
[2024-06-17] MEDS ORDERED: MAGNESIUM 2GM PREMIX 50ML 50 ML IV SCH (12:30)
--- NOTE | 2024-06-17 13:10 | PN ---
SUBJECTIVE: The patient is feeling better with a better appetite. He now reports pain on the right groin and continues with general weakness. No abdominal pain after biopsy. PHYSICAL EXAMINATION: VITAL SIGNS: Stable, afebrile. GENERAL: The patient is alert, in no acute distress. HEART: Regular and rhythmic. LUNGS: With diminished breathing sounds in both bases. No crackles. ABDOMEN: Soft, mildly distended. Bowel sounds present. EXTREMITIES: Mild pedal edema at the ankles bilaterally. LABORATORY DATA: WBC 7.5, hemoglobin 7.2, platelet count 320. Sodium 136, potassium 3.5, BUN 11, creatinine 0.7, total bilirubin 0.6, alkaline phosphatase 279. ASSESSMENT: * Multiple hepatic lesions, suspicion for malignancy. * Status post CT-guided biopsy. * Anemia. * Gastrointestinal bleeding. PLAN: The patient remains stable with no evidence of any active bleeding. No complication after CT-guided biopsy. I will follow final pathology report. Continue to monitor with lab work. TID: [id number] RECEIPT: [id number]
--- NOTE | 2024-06-17 13:55 | NUR ---
REPORT CALLED TO REFUGIO RODRIGUEZ @ [facility] [place]. SPOKE TO CASE MANAGEMENT; EMS TRANSFER WILL BE NEEDED
--- NOTE | 2024-06-17 16:10 | NUR ---
[facility] CALLED FOR TRANSFER
--- NOTE | 2024-06-17 18:40 | NUR ---
CALLED FOR ETA ON EMS ARRIVAL; PER [facility] STAFF, EMS IS EN ROUTE.
--- NOTE | 2024-06-17 19:15 | NUR ---
DISCHARGE D/C SALINE LOCK LEFT FOREARM 22 GAUGE , APPLY 2X2 AND TAPE, TOELERATED WELL, D/C TO [facility] VIA EMS
--- NOTE | 2024-06-18 08:46 | DS ---
Discharge Summary Hospital Course Summary: Date of service 06/17/2024 This is a 73-year-old male with past medical history of hypertension, hyperlipidemia, COPD who presented to the hospital secondary to episodes of bloody stools at home. Labs in the ED were notable for white count of 9.9, hemoglobin was 6.8, MCV was 75.4, platelet count was 419 K, sodium was 138, potassium was 4.2, creatinine was 1.2, troponin was 532 Chest x-ray was noted to be clear. CT abdomen and pelvis without contrast performed. Metastatic liver disease or primary liver neoplasm with the associated metastatic disease, mild to moderate centrilobular emphysema. Tumor markers were ordered. AFB normal at 2.5, CA 19-[address] [place] [address]. Carcinoembryonic antigen elevated at 643. Oncology consultation requested, recommended IR for CT-guided liver biopsy. CT-guided liver biopsy successfully performed 06/13/2024, patient tolerated the procedure well. Pathology report pending. Echocardiogram with LVEF 60 65%. Patient had colonoscopy / finding of hemorrhoids, diverticulosis of the sigmoid colon and melanosis of the colon, three 5 to 8 mm polyps at the hepatic flexure and in the cecum, removed with a cold snare. Resected. And retrieved. As of 06/17/2024, patient alert oriented x3, hemodynamically stable, feels weak. He denies dizziness, no headache, no blurry vision, no chest pain, no shortness a breath, no nausea, no vomiting, no abdominal pain, no diarrhea, no constipation, no melena, no hematochezia, no hematemesis, no hematuria, no dysuria. PHYSICAL EXAM GENERAL APPEARANCE: The patient is awake, alert, and oriented, in no acute cardiopulmonary distress. Patient appears pain NEUROLOGICAL: Cranial nerves II-XII grossly intact. Motor is 5/5 in bilateral upper and lower extremities proximal to distal. No sensory deficits. HEENT: Face is symmetric. Pupils are equal and reactive. Extraocular movements are intact. NECK: Supple. No JVD. No thyromegaly. No submental, submandibular, pre- /postauricular, occipital or supraclavicular lymphadenopathy. CHEST: Normal chest expansion. No Telemetry. LUNGS: Absence of any rales, rhonchi or any wheezing. CARDIOVASCULAR: Regular. S1 and S2 normal. No appreciable rubs, murmurs or gallops. ABDOMEN: Soft, nontender, and nondistended. There is no rebound, voluntary guarding, or rigidity. : Deferred. No Palomares. EXTREMITIES: Non-edematous and not cyanotic. No clubbing. Good capillary refill. SKIN: No skin breakdown. Case management consultation requested, patient accepted to half-way facility for continuation of medical care. 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 Procedure(s): CT-guided liver biopsy by interventional radiologist 06/13/2024 Assessment/Plan: FINAL DIAGNOSIS Hypodensities in the liver consistent with metastatic disease Status post CT-guided liver biopsy by IR 06/13/2024 Acute GI bleed, secondary to hemorrhoids and possible bleeding diverticulosis, POA, Acute symptomatic anemia, POA Microcytic anemia Troponin elevation likely in setting of type 2 MO from anemia Hypertension Hyperlipidemia History of COPD History of gastric ulcer History of constipation Discharge Instructions: Patient has been accepted to half-way facility for continuation of medical care. Patient to follow up with primary care physician, as well as with the oncologist Dr. Vinson for results of pathology. Patient to return to the hospital if condition changes. Patient agreed with the plan and understood the information provided. Home Medications: Reported Medications Budesonide (Budesonide) 0.5 Mg/2 Ml Ampul.neb, 1 VIAL NEB BID for 30 Days, #120 ML 0 Refills 2/4/25 Albuterol Sulfate (Albuterol Sulfate) 2.5 Mg/3 Ml (0.083 %) Vial.neb, 1 VIAL NEB Q6HPRN PRN for wheezing, #150 ML 0 Refills 2/4/25 Lisinopril/Hydrochlorothiazide (Lisinopril-Hctz 20-12.5 mg Tab) 20 Mg-12.5 Mg Tablet, 1 TAB PO BID for 30 Days, #30 TAB 0 Refills 2/4/25 Sennosides/Docusate Sodium (Sennosides-Docusate Sodium Tab) 8.6 Mg-50 Mg Tablet, 2 TAB PO BID for 30 Days, #120 TAB 0 Refills 2/4/25 Atorvastatin Calcium (LIPITOR) 40 Mg Tablet, 1 TAB PO HS for 30 Days, #30 TAB 0 Refills 2/4/25 Potassium Citrate (Potassium) 99 Mg Capsule, 99 MG PO DAILY, CAP 2/4/25 Time spent arranging discharge: 31-60 minutes GRICELDA CABRERA MD Jun 18, 2024 08:46
== END 2024-06-17 19:25 | DRG 377 ==
LOC: EDH 12:08 → EDHIP 15:25 → 4AH 06-09 21:30
PROVIDERS: ADMIT Internal Medicine; ATTEND Internal Medicine
PROC: 30233N1 Transfusion of Nonautologous Red Blood Cells into Peripheral Vein, Percutaneous Approach (ICD-10-PCS; 2024-06-07)
PROC: 0DB68ZX Excision of Stomach, Via Natural or Artificial Opening Endoscopic, Diagnostic (ICD-10-PCS; 2024-06-09)
PROC: 0DB78ZX Excision of Stomach, Pylorus, Via Natural or Artificial Opening Endoscopic, Diagnostic (ICD-10-PCS; 2024-06-09)
PROC: 0DBK8ZX Excision of Ascending Colon, Via Natural or Artificial Opening Endoscopic, Diagnostic (ICD-10-PCS; 2024-06-10)
PROC: 0DBH8ZZ Excision of Cecum, Via Natural or Artificial Opening Endoscopic (ICD-10-PCS; 2024-06-10)
PROC: 0FD13ZX Extraction of Right Lobe Liver, Percutaneous Approach, Diagnostic (ICD-10-PCS; principal; 2024-06-13)
DX: K57.31 Diverticulosis of large intestine without perforation or abscess with bleeding (principal); I21.A1 Myocardial infarction type 2; C78.7 Secondary malignant neoplasm of liver and intrahepatic bile duct; N17.9 Acute kidney failure, unspecified; I10 Essential (primary) hypertension; J44.9 Chronic obstructive pulmonary disease, unspecified; D50.9 Iron deficiency anemia, unspecified; E11.65 Type 2 diabetes mellitus with hyperglycemia; E78.00 Pure hypercholesterolemia, unspecified; I45.10 Unspecified right bundle-branch block; K44.9 Diaphragmatic hernia without obstruction or gangrene; D12.3 Benign neoplasm of transverse colon; D12.0 Benign neoplasm of cecum; K63.5 Polyp of colon; K31.89 Other diseases of stomach and duodenum; K64.9 Unspecified hemorrhoids; K29.70 Gastritis, unspecified, without bleeding; R62.7 Adult failure to thrive; Z79.82 Long term (current) use of aspirin; Z86.73 Personal history of transient ischemic attack (TIA), and cerebral infarction without residual deficits; Z87.11 Personal history of peptic ulcer disease; Z87.891 Personal history of nicotine dependence
CPT/HCPCS: 36415; 43239; 45380; 47000; 71045; 74176; 76705; 76942; 80048; 80053; 82105; 82270; 82378; 82607; 83540; 83550; 83615; 83735; 83880; 84100; 84484; 85014; 85018; 85025; 85027; 85610; 85730; 86316; 86850; 86900; 86901; 86923; 87426; 88305; 88312; 93005; 93306; 94640; 94664; 96374; 99152; 99153; 99285; A4606; G0378; J1171; J1756; J2003; J2250; J2371; J2470; J2704; J3010; J3475; J3480; J7030; P9016; A4215; A4222; A4223; A4620; C2615; G0500; J3490

== ENCOUNTER 2024-06-18 16:15 | Emergency (ER) | payer OTHER ==
[~2024-06-18] VITALS: Ht 180.3 cm; Wt 94.8 kg
[~2024-06-18 16:15] MED LIST changes: +ALBU2.5V2 NEB; -AMOX-426 PO; +ATOR40TA69 PO; -AZIT500T4 PO; +BUDE0.5A3 NEB; +LISI1TAB51 PO; -METH8TAB PO; +POTA99CA PO; -PRED20TA3 PO; +SENN-31 PO
[2024-06-18 16:16] VITALS: TEMP 98.7
--- NOTE | 2024-06-18 16:51 | ERN ---
General Chief Complaint: Generalized Body Aches Stated Complaint: GENERALIZED BODY DISCOMFORT Time Seen by MD: 16:17 Source: patient History of Present Illness Initial Comments PATIENT IS A 73-YEAR-OLD GENTLEMAN COMING IN COMPLAINING OF BODY ACHE. PER PATIENT HE HAS A HISTORY OF RECENTLY DIAGNOSED LIVER CA. PER PATIENT HE WAS RECENTLY TRANSFERRED TO [facility] FOR POSSIBLE HOSPITALIST CARE. PATIENT STATES THAT AT THE [facility] HE WAS NOT GETTING ANYTHING FOR PAIN SO HE DECIDED A COME IN FOR PAIN MANAGEMENT. PATIENT STATES THAT HIS LIVER CA HAS CAUSED HIM TO HAVE A LOT OF PAIN THROUGHOUT BODY. Allergies: Coded Allergies: morphine (Unverified Allergy, Mild, 10/02/21) meperidine (Unverified Allergy, Unknown, 06/07/24) Home Meds Reported Medications Budesonide (Budesonide) 0.5 Mg/2 Ml Ampul.neb, 1 VIAL NEB BID for 30 Days, #120 ML 0 Refills 06/07/24 Albuterol Sulfate (Albuterol Sulfate) 2.5 Mg/3 Ml (0.083 %) Vial.neb, 1 VIAL NEB Q6HPRN PRN for wheezing, #150 ML 0 Refills 06/07/24 Lisinopril/Hydrochlorothiazide (Lisinopril-Hctz 20-12.5 mg Tab) 20 Mg-12.5 Mg Tablet, 1 TAB PO BID for 30 Days, #30 TAB 0 Refills 06/07/24 Sennosides/Docusate Sodium (Sennosides-Docusate Sodium Tab) 8.6 Mg-50 Mg Tablet, 2 TAB PO BID for 30 Days, #120 TAB 0 Refills 06/07/24 Atorvastatin Calcium (LIPITOR) 40 Mg Tablet, 1 TAB PO HS for 30 Days, #30 TAB 0 Refills 06/07/24 Potassium Citrate (Potassium) 99 Mg Capsule, 99 MG PO DAILY, CAP 06/07/24 Past Medical History Past Medical History: Anxiety, Cancer, Constipation, COPD, High Cholesterol, Hypertension Past Surgical History: Other Surgical History Other: BACK, HERNIA, LIVER BIOPSY Social History Social History: Smokers, Lives with family ROS Dictation CONSTITUTIONAL: NO CHILLS, NO FEVER, NO WEAKNESS, NO DIAPHORESIS, NO MALAISE. HEAD/FACE: NO SIGNS OF TRAUMA. EENT: NO EYE PAIN, NO BLURRED VISION, NO TEARING, NO DOUBLE VISION, NO EAR PAIN, NO EAR DISCHARGE, NO NOSE PAIN, NO NASAL CONGESTION, NO THROAT PAIN, NO THROAT SWELLING, NO MOUTH PAIN. RESPIRATORY: NO COUGH, NO ORTHOPNEA, NO SOB, NO STRIDOR, NO WHEEZING. CARDIOVASCULAR: NO CHEST PAIN, NO EDEMA, NO PALPITATIONS, NO SYNCOPE. GASTROINTESTINAL/ABDOMINAL: NO ABDOMINAL PAIN, NO CONSTIPATION, NO DIARRHEA, NO NAUSEA, NO VOMITING. GENITOURINARY: NO ABNORMAL DISCHARGE, NO DYSURIA, NO FREQUENT URINATION, NO HEMATURIA. NO COMPLAINTS OF PAIN IN THE GENITALS. MUSCULOSKELETAL: NO BACK PAIN, NO GOUT, NO JOINT PAIN, NO JOINT SWELLING, NO MUSCLE PAIN, NO MUSCLE STIFFNESS, NO NECK PAIN. INTEGUMENTARY: NO CHANGE IN COLOR, NO CHANGE IN HAIR/NAILS, NO DRYNESS, NO LESION, NO LUMPS, NO RASH. NEUROLOGICAL/PSYCH: NO ANXIETY, NOT DEPRESSED, NO EMOTIONAL PROBLEM, NO HEADACHE, NO NUMBNESS, NO PRE-EXISTING DEFICIT, NO HISTORY OF SEIZURES, NO TREMORS, NO WEAKNESS. HEMATOLOGIC/LYMPHATIC: NOT ANEMIC, NO HISTORY OF BLOOD CLOTS, NO APPARENT BLEEDING, NO BRUISING, GLANDS NOT SWOLLEN. ALL SYSTEMS NEGATIVE, EXCEPT NOTED. Physical Exam Physical Exam Dictation VITAL SIGNS: REVIEWED. GENERAL APPEARANCE: ALERT, ORIENTED X3, NO ACUTE DISTRESS, OBESE. HEAD AND FACE: NON-TRAUMATIC. EYES: PERRL, PINK CONJUNCTIVAS, EYELID NO TRAUMA, ANTERIOR CHAMBER CLEAR. EARS: PINNAS INTACT AND NO SIGNS OF TRAUMA OR ERYTHEMA. EAR CANALS CLEAR AND NO DISCHARGE. TMS NO ERYTHEMA. NOSE: NO DISCHARGE, NO BLEEDING. OROPHARYNX: MOUTH NORMAL, TEETH NO CARIES, TONGUE PINK. PHARYNX CLEAR, NO ERYTHEMA. TONSILS NO EXUDATES, NO ABSCESSES NOTED. MUCOUS MEMBRANE MOIST. NECK: SUPPLE, NON-TENDER, NO THYROMEGALY, NO MASSES, NO JVD, NO BRUITS. BREAST: DEFERRED. CHEST: NO TENDERNESS, NO CREPITUS, NO PARADOXICAL MOVEMENT, NO RETRACTIONS. LUNGS: CLEAR, WELL-VENTILATED, SYMMETRIC, NO RALES, NO WHEEZING, NO RHONCHI, NO STRIDOR, GOOD BREATH SOUNDS BILATERALLY. HEART: REGULAR RATE, REGULAR RHYTHM, NO MURMUR, NO GALLOPS. VASCULAR: NO PERIPHERAL EDEMA. ABDOMEN: SOFT, POSITIVE BOWEL SOUNDS, NONDISTENDED, NO GUARDING, NONTENDER, NO REBOUND, NO MASSES NO HEPATOMEGALY, NO SPLENOMEGALY, NO BENSON'S SIGN, NO HERNIAS. RECTAL: DEFERRED. GENITAL: DEFERRED. NEUROLOGICAL: NORMAL SPEECH, GROSS MOTOR FUNCTION INTACT, GROSS SENSORY FUNC TION INTACT. MUSCULOSKELETAL: NECK NONTENDER, FULL RANGE OF MOTION, BACK NONTENDER, FULL RANGE OF MOTION. EXTREMITIES: NONTENDER, FULL RANGE OF MOTION. SKIN: COLOR PINK, DRY, NO TURGOR, NO RASH, NO LACERATIONS, NO ABRASIONS, NO CONTUSIONS. LYMPHATICS: DEFERRED. MDM MDM: DIFFERENTIAL DIAGNOSIS: PAIN MANAGEMENT, HISTORY OF LIVER CIRRHOSIS, HISTORY OF LIVER CA PATIENT IS A 73-YEAR-OLD MALE COMING IN FOR PAIN MANAGEMENT. PATIENT STATES THAT HE HAS A HISTORY OF LIVER CA BUT WAS NOT GETTING ANY PAIN MEDS AT THE [facility] SO HE WANTED TO COME IN TO GET SOME PAIN MEDS. PATIENT RECEIVED SOME PAIN MEDS HE STATES THAT HE WAS ALLERGIC TO MORPHINE IN THE ONLY THING IN THE HELPS HIM WITH THE PAIN IS DILAUDID. PATIENT DID GET 0.5 SUBQ DILAUDID AND WILL BE DISCHARGED. ED Course Orders Procedure Category Date Status Time Hydromorphone 0.5mg PHA 06/18/24 In Process Syg (Dilaudid 0.5mg 17:30 Current Medications Medications (Trade) Dose Ordered Sig/Kenneth Route PRN Reason Start Time Stop Time Status Last Admin Dose Admin Hydromorphone HCl (DiLAUDid 0.5MG INJ) 0.5 mg ONCE ONCE IM 06/18/24 17:30 06/18/24 17:31 06/18/24 17:20 Vital Signs Date Time Temp Pulse Resp B/P (MAP) Pulse Ox O2 Delivery O2 Flow Rate FiO2 06/18/24 16:16 98.8 83 16 171/74 95 Room Air 0 DX & DISP Disposition: Discharge Departure Impression: Primary Impression: Drug-seeking behavior Condition: Stable Additional Instructions: FOLLOW-UP WITH PRIMARY CARE PROVIDER IN 1 TO 2 DAYS. TAKE MEDICATIONS DIRECTED HERE IN THE EMERGENCY ROOM. OKAY TO CONTINUE HOME MEDICATIONS UNLESS OTHERWISE DISCUSSED DURING YOUR VISIT IN THE EMERGENCY ROOM TODAY. RETURN TO YOUR NEAREST EMERGENCY ROOM IF SYMPTOMS WORSEN OR IF THERE IS NO IMPROVEMENT. CALL 911 IF YOU NEED IMMEDIATE ASSISTANCE. TAKE TYLENOL [id number] NEEDED AND IF NO CONTRAINDICATIONS ARE PRESENT. INCREASE ORAL HYDRATION. A WOUND CULTURE OR URINE CULTURE WAS ORDERED HERE IN THE EMERGENCY ROOM DEPARTMENT PLEASE FOLLOW-UP WITH PRIMARY CARE PROVIDER AND ADVISE THEM TO GET REPEAT PORTS FROM OUR FACILITY. IF YOU HAD ANY ZAYNAB WRAP/SPLINTS THAT WERE APPLIED HERE, PLEASE DO NOT REMOVE THEM UNTIL YOU SEE YOUR PRIMARY CARE OR SPECIALTY. REFERRALS: Referrals: ZEKE SALVADOR MD (PCP) Time of Disposition: 17:27 JEFRY MARRERO MD Jun 18, 2024 16:51
--- NOTE | 2024-06-18 16:56 | NUR ---
CALLED NADIA ASTUDILLO FROM [facility] AND ADVISED PATIENT WILL BE GIVEN MEDICATION THAN SEND BACK AND PER NURSE OKAY TO RECEIVE PATIENT BACK
[2024-06-18] MEDS: hydroMORPHone 0.5 MG SYG (0.5MG/0.5ML) IM ONE (17:20)
--- NOTE | 2024-06-18 17:24 | NUR ---
[facility] NOTIFIED OF TRANSPORT. PAPERWORK FAXED.
--- NOTE | 2024-06-18 17:44 | NUR ---
samra thomas [facility] called in regards to patient , advised patient should be going back to facility
[2024-06-18 17:53] VITALS: BP 161/72; PULSE 84; RESP 19; O2SAT 96
--- NOTE | 2024-06-18 18:28 | NUR ---
[facility] ARR[facility]AL TIME
== END 2024-06-18 18:32 | disposition home or self-care (01) ==
LOC: EDH 16:15
DX: M79.10 Myalgia, unspecified site (principal); F41.9 Anxiety disorder, unspecified; E78.00 Pure hypercholesterolemia, unspecified; F17.200 Nicotine dependence, unspecified, uncomplicated; I10 Essential (primary) hypertension; J44.9 Chronic obstructive pulmonary disease, unspecified; Z88.5 Allergy status to narcotic agent; Z76.5 Malingerer [conscious simulation]; Z79.899 Other long term (current) drug therapy
CPT/HCPCS: 99284; 96372; J1171